=== PATIENT | female | born 1970 | race Caucasian/White ===

== ENCOUNTER 2018-02-17 16:25 | Inpatient (IN) | payer SELFPAY ==
[~2018-02-17] VITALS: Ht 157.5 cm; Wt 70.5 kg
[2018-02-17] MEDS: HYDROMORPHONE 2MG/ML 2 MG/ML ML IV PRN (10:45)
--- OUTSIDE RECORDS SUMMARY | 2018-02-17 16:28 | XMS REPORT | Clinical Summary ---
Author Author GLENN VirtualQubeValor HealthCirrus Data SolutionsPinnacle Pointe HospitalThe Kive CompanyUniversal Health Services Address Unknown Phone Unavailable Care Team Providers Care Production Potter Name Role Phone Elie Pang PCP Unavailable Allergies No Known Allergies Medications End Date Status Medication Sig Dispensed Refills Start Date Active lansoprazole (PREVACID) Take 30 mg by 0 30 MG capsule mouth. Active aspirin 81 MG EC tablet Take 81 mg by 0 mouth. Active albuterol HFA (PROAIR 0 HFA) 90 mcg/actuation 8 inhaler Active rifAXIMin 550 mg Tab Take 550 mg 0 by mouth 2 (two) times daily. Active furosemide (LASIX) 20 MG Take 20 mg by 0 tablet mouth daily. Active spironolactone Take 50 mg by 0 (ALDACTONE) 50 MG tablet mouth daily. Active baclofen 5 mg Take 5 mg by 90 tablet 0 TabIndications: Alcohol mouth 3 8 use disorder (three) times daily. 11/20/2018 Active folic acid (FOLVITE) 1 MG Take 1 tablet 30 tablet 5 tablet (1 mg total) 8 by mouth daily. Active DECARA 50,000 unit TAKE 1 12 capsule 0 capsule CAPSULE BY 8 MOUTH EVERY WEEK 10/23/2017 Discontinued baclofen 5 mg Take 5 mg by 90 tablet 0 TabIndications: Alcohol mouth 3 8 use disorder (three) times daily. 12/24/2017 Discontinued cholecalciferol, vitamin Take 1 tablet 12 tablet 0 D3, 50,000 unit Tab (50,000 Units 8 total) by mouth once a week. Active Problems Problem Noted Date Cirrhosis 10/22/2017 Last Assessment & Plan: Diagnosis based on the constellation of clinical findings, laboratory parameters and imaging. Etiology is most likely due to alcohol. Her condition has decompensated with features of portal hypertension. MELD based on outside labs is 14. We will get labs today to calculate update the MELD score and complete a comprehensive evaluation for other causes of cirrhosis. Patients with cirrhosis secondary to alcohol would be considered for liver transplantation once MELD exceeds 25. Cirrhosis guidelines were reviewed. Alcohol use 10/22/2017 Last Assessment & Plan: Prior history of heavy alcohol use. Last alcohol use on 10/19/17 We advised her of the importance of abstinence from alcohol as it is likely the primary cause of her liver disease. We also discussed counseling and support groups. Prescription provided with baclofen to help ease symptoms of withdrawal. Hyperlipidemia 10/22/2017 Last Assessment & Plan: Lab tests shows hyperlipidemia and hypercholesterolemia. It is safe to use statins in presence of fatty liver disease.Statins use can increase AST/ALT, but significant hepatotoxicity is very rare. Expert panel of warehouse packaging supervisor and concrete buildings assembler recommend use of statins in patient with elevated liver enzymes and hyperlipidemia. I will recommend to monitor liver panel 6 months, if any time T Bilirubin > 2.0 suggests significant hepatotoxicity, then statins need to be discontinued. Immunity status testing 10/22/2017 Last Assessment & Plan: All patients with chronic liver disease, regardless of etiology, should be immunized to prevent hepatitis A and hepatitis B if they are not already immune. We will test for immunity to both viruses and vaccine recommendations will follow. Screening for malignant neoplasm 10/22/2017 Last Assessment & Plan: Cirrhosis, regardless of etiology, is a risk factor for hepatocellular carcinoma (HCC), with an annual incidence of 1.5-7%. We recommend surveillance for HCC with abdominal imaging and alphafetoprotein every 6 months. Ultrasound 09/2017 negative for focal lesions. MRI today. Portal hypertension 10/22/2017 Last Assessment & Plan: Manifested in the form of hypervolemia and splenomegaly. She will need an EGD (outpatient) to screen for esophageal varices. Encounters Care Team Description Date Type Specialty Essence Whitney NP 12/24/2017 Refill Hepatology Gilmer Morfin NP elevated WBC 11/21/2017 Telephone HepatEssence Watson NP 11/20/2017 Orders Only Essence Reyez NP 11/20/2017 Orders Only HepatEssence Watson NP Alcoholic cirrhosis of liver without ascites (HCC); Alcohol use 11/14/2017 Orders Only HepatEssence Watson NP Alcoholic cirrhosis of liver without ascites (HCC) (Primary Dx); Alcohol use 11/14/2017 Orders Only Hepatology Susie Nixon MA 11/10/2017 Abstract Hepatology Keshia Kinsey RN Alcohol use disorder (HCC) 10/23/2017 Orders Only Hepatology Cristobal Boyle MD Other cirrhosis of liver (HCC) (Primary Dx); Immunity status testing; Alcohol use disorder (HCC); Screening for malignant neoplasm; Jaundice; Alcoholic cirrhosis of liver without ascites (HCC); Alcohol use; Hyperlipidemia, unspecified hyperlipidemia type; Portal hypertension (HCC) 10/22/2017 Office Visit Hepatology Maria Ines Wright MA rec cd 10/20/2017 Telephone Hepatology after 02/16/2017 Family History Medical History Relation Name Comments Cancer Father Heart disease Mother Relation Name Status Comments Father Mother Social History Date Tobacco Use Types Packs/Day Years Used Current Every Day Smoker 1 Smokeless Tobacco: Never Used Alcohol Use Drinks/Week oz/Week Comments Yes greater than 5 times/week Sex Assigned at Date Recorded Not on file Industry Job Start Date Occupation Not on file Not on file Not on file Travel End Travel History Travel Start No recent travel history available. Last Filed Vital Signs Time Taken Vital Sign Reading 10/22/2017 9:46 AM CDT Blood Pressure 113/76 10/22/2017 9:46 AM CDT Pulse 103 10/22/2017 9:46 AM CDT Temperature 37.4 C (99.3 F) 10/22/2017 9:46 AM CDT Respiratory Rate 18 10/22/2017 9:46 AM CDT Oxygen Saturation 97% - Inhaled Oxygen - Concentration 10/22/2017 9:46 AM CDT Weight 68.5 kg (151 lb 1.6 oz) 10/22/2017 9:46 AM CDT Height 156 cm (5' 1.4") 10/22/2017 9:46 AM CDT Body Mass Index 28.18 Plan of Treatment Health Maintenance Due Date Last Done Comments INFLUENZA VACCINE 11/24/2017 Procedures Comments Procedure Name Priority Date/Time Associated Diagnosis VITAMIN B1 (THIAMINE), Routine 11/17/2017 Alcohol use WHOLE BLOOD, LC/MS/MS 3:28 PM CDT VITAMIN B12 AND FOLATE Routine 11/17/2017 Alcohol use 3:28 PM CDT ETHANOL Routine 11/17/2017 Alcohol use 3:28 PM CDT VITAMIN E Routine 11/17/2017 Alcoholic cirrhosis of 3:28 PM CDT liver without ascites (HCC) VITAMIN D, 25-HYDROXY Routine 11/17/2017 Alcoholic cirrhosis of 3:28 PM CDT liver without ascites (HCC) VITAMIN A Routine 11/17/2017 Alcoholic cirrhosis of 3:28 PM CDT liver without ascites (HCC) ZINC Routine 11/17/2017 Alcoholic cirrhosis of 3:28 PM CDT liver without ascites (HCC) PHOSPHORUS Routine 11/17/2017 Alcoholic cirrhosis of 3:28 PM CDT liver without ascites (HCC) MAGNESIUM Routine 11/17/2017 Alcoholic cirrhosis of 3:28 PM CDT liver without ascites (HCC) HEPATIC FUNCTION PANEL Routine 11/17/2017 Alcoholic cirrhosis of 3:28 PM CDT liver without ascites (HCC) BASIC METABOLIC PANEL (7) Routine 11/17/2017 Alcoholic cirrhosis of 3:28 PM CDT liver without ascites (HCC) PROTHROMBIN TIME/INR Routine 11/17/2017 Alcoholic cirrhosis of 3:28 PM CDT liver without ascites (HCC) CBC W/PLT COUNT & AUTO Routine 11/17/2017 Alcoholic cirrhosis of DIFFERENTIAL 3:28 PM CDT liver without ascites (HCC) CBC W/PLT COUNT & AUTO Routine 10/22/2017 Other cirrhosis of liver DIFFERENTIAL 11:54 AM CDT (HCC) HEPATITIS B SURFACE Routine 10/22/2017 Other cirrhosis of liver ANTIBODY 11:54 AM CDT (HCC) HEPATITIS B CORE Routine 10/22/2017 Other cirrhosis of liver ANTIBODY, TOTAL 11:54 AM CDT (HCC) HEPATITIS A ANTIBODY, IGG Routine 10/22/2017 Other cirrhosis of liver 11:54 AM CDT (HCC) ALPHA FETOPROTEIN (AFP), Routine 10/22/2017 Other cirrhosis of liver TUMOR MARKER 11:54 AM CDT (HCC) PROTHROMBIN TIME/INR Routine 10/22/2017 Other cirrhosis of liver 11:54 AM CDT (HCC) CBC W/PLT COUNT & AUTO Routine 10/22/2017 Other cirrhosis of liver DIFFERENTIAL 11:54 AM CDT (HCC) HEPATIC FUNCTION PANEL Routine 10/22/2017 Other cirrhosis of liver 11:54 AM CDT (HCC) BASIC METABOLIC PANEL (7) Routine 10/22/2017 Other cirrhosis of liver 11:54 AM CDT (HCC) after 02/16/2017 Results * Vitamin B1 (Thiamine), Whole Blood, LC/MS/MS (11/17/2017 3:28 PM CDT) Vitamin B1,LCMSMS 58 (L) 78 - 185 nmol/L [facility] Comment: Vitamin supplementation within 24 hours prior to blood draw may affect the accuracy of results. This test was developed and its analytical performance characteristics have been determined by [facility]. It has not been cleared or approved by FDA. This assay has been validated pursuant to the CLIA regulations and is used for clinical purposes. Resulting Agency Comment Performing Organization Information: Site ID: [id number]: [facility] Address: [id number] [place] [phone] Director: Baldemar Bardales M.D., Ph.D Performing Organization Address City/State/Zipcode Phone Number [facility] [address] [place] [address] [facility] * Vitamin B12 and Folate (11/17/2017 3:28 PM CDT) Vitamin B12 402 200 - 1,100 pg/mL [facility] Folate (Folic Acid), 3.8 (L) ng/mL [facility] Serum Comment: Reference Range Low: <3.4 Borderline:3.4-5.4 Normal:>5.4 Specimen Blood Resulting Agency Comment Performing Organization Information: Site ID: [id number] Name: [facility] Address: [address] [place] [phone] Director: Simona Mccauley Performing Organization Address [facility] Phone Number [facility] [address] [place] [address] [facility] * Zinc (11/17/2017 3:28 PM CDT) Zinc 84 60 - 130 mcg/dL [facility] Comment: This test was developed and its analytical performance characteristics have been determined by [facility]. It has not been cleared or approved by the US Food and Drug Administration. This assay has been validated pursuant to the CLIA regulations and is used for clinical purposes. Specimen Blood Resulting Agency Comment Performing Organization Information: Site ID: [facility] Name: [facility] Address: [address] [place] [address] Director: Baldemar Bardales M.D., Ph.D Performing Organization Address [facility] Phone Number [facility] [address] [place] [address] [facility] * Vitamin A (11/17/2017 3:28 PM CDT) Vitamin A 20 (L) 38 - 98 mcg/dL [facility] Comment: Clin Chem Vol. 34.No.8. [id number]. 1998 Vitamin supplementation within 24 hours prior to blood draw may affect the accuracy of results. This test was developed and its analytical performance characteristics have been determined by [facility]. It has not been cleared or approved by the US Food and Drug Administration. This assay has been validated pursuant to the CLIA regulations and is used for clinical purposes. Specimen Blood Resulting Agency Comment Performing Organization Information: Site ID: [id number] Name: [facility] Address: [address] [place] [address] Director: Baldemar Bardales M.D., Ph.D Performing Organization Address [facility] Phone Number [facility] [address] [place] [address] [facility] * Vitamin D, 25-Hydroxy (11/17/2017 3:28 PM CDT) Vitamin D,25-Oh,Total 12 (L) 30 - 100 ng/mL [facility] Comment: Vitamin D Status 25-OH Vitamin D: Deficiency: <20 ng/mL Insufficiency: 20 - 29 ng/mL Optimal: > or=30 ng/mL For 25-OH Vitamin D testing on patients on D2-supplementation and patients for whom quantitation of D2 and D3 fractions is required, the QuestAssureD(TM) 25-OH VIT D, (D2,D3), LC/MS/MS is recommended: order code 45184 (patients >2yrs). For more information on this test, go to: http://education.[employer]/faq/JAH717 (This link is being provided for informational/educational purposes only.) Specimen Blood Resulting Agency Comment Performing Organization Information: Site ID: [id number] Name: [facility] Address: [address] [place] [phone] Director: Simona Mccauley Performing Organization Address City/[facility]/Zipcode Phone Number [facility] [address] [place] [address] [facility] * Pro-time/INR (11/17/2017 3:28 PM CDT) Only the most recent of 2 results within the time period is included. INR 1.3 (H) [facility] Comment: Reference Range 0.9-1.1 Moderate-intensity Warfarin Therapy 2.0-3.0 Higher-intensity Warfarin Therapy 3.0-4.0 PT 13.2 (H) 9.0 - 11.5 sec [facility] Comment: For more information on this test, go to: http://education.[employer]/faq/LVU671 Specimen Blood Resulting Agency Comment Performing Organization Information: Site ID: [id number] Name: [facility] Address: [address] [place] [phone] Director: Simona Mccauley Performing Organization Address [facility]/Zipcode Phone Number [facility] [address] [place] [address] [facility] * CBC with platelet count + automated diff (11/17/2017 3:28 PM CDT) WBC 14.9 (H) 3.8 - 10.8 Thousand/uL [facility] RBC 3.64 (L) 3.80 - 5.10 Million/uL [facility] Hemoglobin 12.8 11.7 - 15.5 g/dL [facility] Hematocrit 37.3 35.0 - 45.0 % [facility] MCV 102.5 (H) 80.0 - 100.0 fL [facility] MCH 35.2 (H) 27.0 - 33.0 pg [facility] MCHC 34.3 32.0 - 36.0 g/dL [facility] RDW 12.6 11.0 - 15.0 % [facility] Platelets 410 (H) 140 - 400 Thousand/uL [facility] MPV 10.8 7.5 - 12.5 fL [facility] # Neutros 11,175 (H) 1,500 - 7,800 cells/uL [facility] # Lymphs 2,548 850 - 3,900 cells/uL [facility] # Monos 864 200 - 950 cells/uL [facility] # Eos 209 15 - 500 cells/uL [facility] # Baso 104 0 - 200 cells/uL [facility] % Neutros 75 % [facility] % Lymphs 17.1 % [facility] % Monos 5.8 % [facility] % Eos 1.4 % [facility] % Baso 0.7 % [facility] Specimen Blood Resulting Agency Comment Performing Organization Information: Site ID: [id number] Name: [facility] Address: [address] [place] [phone] Director: Simona Mccauley Performing Organization Address City/State/Zipcode Phone Number [facility] [address] [place] [address] [facility] * Vitamin E (11/17/2017 3:28 PM CDT) Alpha-Tocopherol 13.4 5.7 - 19.9 mg/L [facility] Comment: Pediatric Term Infants (Cord Blood) 1.8 - 5.8 mg/L Levels of alpha-tocopherol < 5 mg/L are consistent with Vitamin E deficiency in adults Kdjo-Shfco-Nwrmwnngdo 2.5 <4.4 mg/L [facility] Comment: Vitamin supplementation within 24 hours prior to blood draw may affect the accuracy of results. This test was developed and its analytical performance characteristics have been determined by [facility]. It has not been cleared or approved by the US Food and Drug Administration. This assay has been validated persuant to the CLIA regulations and is used for clinical purposes. Specimen Blood Resulting Agency Comment Performing Organization Information: Site ID: [id number] Name: [facility] Address: [address] [place] [address] Director: Baldemar Bardales M.D., Ph.D Performing Organization Address [facility] Phone Number [facility] [address] [place] [address] [facility] * Phosphorus (11/17/2017 3:28 PM CDT) Phosphorus, Serum 3.4 2.5 - 4.5 mg/dL [facility] Specimen Blood Resulting Agency Comment Performing Organization Information: Site ID: [facility] Name: [facility] Address: [address] [place] [phone] Director: Simona Mccauley Performing Organization Address [facility] Phone Number [facility] [address] [place] [address] [facility] * Magnesium (11/17/2017 3:28 PM CDT) Magnesium, Serum 1.3 (L) 1.5 - 2.5 mg/dL [facility] Specimen Blood Resulting Agency Comment Performing Organization Information: Site ID: [facility] Name: [facility] Address: [address] [place] [phone] Director: Simona Mccauley Performing Organization Address [facility] Phone Number [facility] [address] [place] [address] [facility] * Ethanol (11/17/2017 3:28 PM CDT) Alcohol Metabolites POSITIVE (A) <500 ng/mL [facility] Comment: => Indicates changed result(s) or information. Ethyl Glucuronide (ETG) >91144 (H) <500 ng/mL [facility] Comment: => Indicates changed result(s) or information. Ethyl Sulfate (ETS) >35556 (H) <100 ng/mL [facility] Comment: => Indicates changed result(s) or information. Comment Comment: [employer] This drug testing is for medical treatment only. Analysis was performed as non-forensic testing and these results should be used only by healthcare providers to render diagnosis or treatment, or to monitor progress of medical conditions. For assistance with interpreting these drug results, please contact a [facility] Toxicology Specialist: [phone] ( [phone] M-F, 8am-6pm EST. Specimen Blood Resulting Agency Comment Performing Organization Information: Site ID: [id number] Name: [facility] Address: [address] [place] [address] Director: Dr. Asim Loyd Performing Organization Address [facility] Centercode Phone Number [facility] [address] [place] [address] [facility] * Hepatic function panel (11/17/2017 3:28 PM CDT) Only the most recent of 2 results within the time period is included. Protein, Total, Serum 7.7 6.1 - 8.1 g/dL [facility] Albumin 3.9 3.6 - 5.1 g/dL [facility] GLOBULIN (QUEST) 3.8 (H) 1.9 - 3.7 g/dL (calc) [facility] Albumin Globulin Ratio 1.0 1.0 - 2.5 (calc) [facility] Bilirubin, Total 2.3 (H) 0.2 - 1.2 mg/dL [facility] Bilirubin, Direct 1.2 (H) < OR=0.2 mg/dL [facility] Bilirubin, Indirect 1.1 0.2 - 1.2 mg/dL (calc) [facility] Alkaline Phosphatase, S 358 (H) 33 - 115 U/L [facility] AST (SGOT) 148 (H) 10 - 35 U/L [facility] ALT (SGPT) 27 6 - 29 U/L [facility] Specimen Blood Resulting Agency Comment Performing Organization Information: Site ID: [facility] Name: [facility] Address: [address] [place] [phone] Director: Simona Mccauley Performing Organization Address City/[facility]/Zipcode Phone Number [facility] [address] [place] [address] [facility] * Basic Metabolic Panel (11/17/2017 3:28 PM CDT) Only the most recent of 2 results within the time period is included. Glucose 99 65 - 99 mg/dL [facility] Comment: Fasting reference interval BUN 5 (L) 7 - 25 mg/dL [facility] Creatinine 0.71 0.50 - 1.10 mg/dL [facility] eGFR If NonAfricn Am 101 > OR=60 mL/min/1.73m2 [facility] eGFR If Africn Am 117 > OR=60 mL/min/1.73m2 [facility] BUN/Creatinine Ratio 7 6 - 22 (calc) [facility] Sodium 136 135 - 146 mmol/L [facility] Potassium, Serum 3.6 3.5 - 5.3 mmol/L [facility] Chloride 93 (L) 98 - 110 mmol/L [facility] Carbon Dioxide, Total 31 20 - 32 mmol/L [facility] Calcium, Serum 9.1 8.6 - 10.2 mg/dL [facility] Specimen Blood Resulting Agency Comment Performing Organization Information: Site ID: [facility] Name: [facility] Address: [address] [place] [phone] Director: Simona Mccauley Performing Organization Address City/[facility] Centercode Phone Number [facility] [address] [place] [address] [facility] * Hepatitis A Antibody, IgG ([facility] Only) (10/22/2017 11:54 AM CDT) Hep A IgG Nonreactive Nonreactive [facility] Specimen Blood Performing Organization Address City/State/Zipcode Phone Number [facility] [address] [place] [address] [facility] * CBC with platelet count + automated diff (10/22/2017 11:54 AM CDT) WBC 15.7 (H) 3.5 - 10.5 K/L [facility] RBC 3.55 (L) 3.93 - 5.22 M/L [facility] Hemoglobin 12.9 11.2 - 15.7 GM/DL [facility] Hematocrit 38.3 34.1 - 44.9 % [facility] MCV 107.9 (H) 79.4 - 94.8 fL [facility] MCH 36.3 (H) 25.6 - 32.2 pg [facility] MCHC 33.7 32.2 - 35.5 GM/DL [facility] RDW 14.4 11.7 - 14.4 % [facility] Platelets 396 150 - 450 K/CU MM [facility] MPV 11.1 9.4 - 12.3 fL [facility] nRBC 0 0 - 0 /100 WBC [facility] % Neutros 81 % [facility] % Lymphs 12 % [facility] % Monos 5 % [facility] % Eos 1 % [facility] % Baso 1 % [facility] # Neutros 12.67 (H) 1.56 - 6.13 K/L [facility] # Lymphs 1.90 1.18 - 3.74 K/L [facility] # Monos 0.76 (H) 0.24 - 0.36 K/L [facility] # Eos 0.14 0.04 - 0.36 K/L [facility] # Baso 0.13 (H) 0.01 - 0.08 K/L [facility] Immature 1 0 - 1 % [facility] Granulocytes-[facility] Specimen Blood Performing Organization Address City/State/[place] [address] [facility] * Alpha fetoprotein (AFP), tumor marker (10/22/2017 11:54 AM CDT) Alpha-Fetoprotein 4.6 <10.0 ng/mL [facility] Specimen Blood Performing Organization Address City/[facility]/Zipcode Phone Number [address] [address] [facility] * Hepatitis B core antibody, total (10/22/2017 11:54 AM CDT) Hep B Core Total Ab NON-REACTIVE Nonreactive [facility] Specimen Blood Performing Organization Address City/[facility]/Zipcode Phone Number [facility] [address] [place] [address] [facility] * Hepatitis B surface antibody (10/22/2017 11:54 AM CDT) Hep B S Ab <8.0 <8.0 mIU/mL [facility] Specimen Blood Performing Organization Address City/[facility] Cent[facility] Phone Number [facility] [address] [place], [place] [phone] [facility] after 02/16/2017 Insurance Payer Benefit Subscriber ID Type Phone Address Plan / Group [employer] BCBS PPO xxxxxxxxxxxx PPO [phone] [address] [place] [address] CHOICE
--- OUTSIDE RECORDS SUMMARY | 2018-02-17 16:28 | XMS REPORT | Clinical Summary ---
Author Author [facility] Address Unknown Phone Unavailable Care Team Providers Care Advanced Practice Registered Nurse Name Role Phone Elie Pang DO PCP Allergies No Known Allergies Medications End Date Status Medication Sig Dispensed Refills Start Date Active PROAIR HFA 90 5 mcg/actuation inhaler 8 Active lansoprazole (PREVACID) Take 30 mg by 0 30 MG capsule mouth daily. Active aspirin (ECOTRIN) 81 MG Take 81 mg by 0 enteric coated tablet mouth daily. Active MULTIVITAMIN ORAL Take by 0 mouth. Active CHLORPHENIRAMINE MALEATE Take by 0 (CHLOR-TRIMETON ORAL) mouth. As needed about twice a week Active oxymetazoline (AFRIN) 2 sprays into 0 0.05 % nasal spray each nostril 2 (two) times a day. As needed Active Problems Not on file Encounters Care Team Description Date Type Specialty Pepe Craig MD Diarrhea, unspecified type (Primary Dx); Abdominal pain, left upper quadrant; Abdominal pain, right upper quadrant; Stomach ache; Abdominal pain, epigastric 10/07/2017 Transcribe Access Orders Pepe Craig MD Acid phosphatase elevated 10/03/2017 Hospital Radiology Encounter Pepe Craig MD Acid phosphatase elevated (Primary Dx) 10/03/2017 Transcribe Access Orders Julita Amado MA 05/20/2017 Telephone Gastroenterology Saurabh Vilal MD Abnormal liver function test (Primary Dx); Hepatomegaly; Abnormal abdominal ultrasound; Gastroesophageal reflux disease without esophagitis; Fatty liver; Change in bowel habits; History of colon polyps; Gastric ulcer without hemorrhage or perforation, unspecified chronicity 05/13/2017 Office Visit Gastroenterology Diann Masters MD Chest pain, unspecified type (Primary Dx) 04/01/2017 Emergency Emergency Medicine after 02/16/2017 Family History Medical History Relation Name Comments Adrenal disorder Father Cancer Father GERD Mother Thyroid disease Mother Relation Name Status Comments Father (Age 52) Mother Social History Date Tobacco Use Types Packs/Day Years Used Current Every Day Smoker Cigarettes 0.5 Smokeless Tobacco: Never Used Alcohol Use Drinks/Week oz/Week Comments Yes 1-2 Shots of 0.6 - 1.2 4-5 liquor Sex Assigned at Date Recorded Not on file Industry Job Start Date Occupation Not on file Not on file Not on file Travel End Travel History Travel Start No recent travel history available. Last Filed Vital Signs Time Taken Vital Sign Reading 05/13/2017 2:17 PM CDT Blood Pressure 124/84 05/13/2017 2:17 PM CDT Pulse 74 05/13/2017 2:17 PM CDT Temperature 37.3 C (99.1 F) 05/13/2017 2:17 PM CDT Respiratory Rate 12 04/01/2017 5:45 PM EDITOR MANAGING DIRECTOR Oxygen Saturation 98% - Inhaled Oxygen - Concentration 05/13/2017 2:17 PM CDT Weight 70.5 kg (155 lb 6.4 oz) 05/13/2017 2:17 PM CDT Height 157.5 cm (5' 2") 05/13/2017 2:17 PM CDT Body Mass Index 28.42 Plan of Treatment Health Maintenance Due Date Last Done Comments CERVICAL CANCER SCREENING 1990 INFLUENZA VACCINE 09/24/2017 Procedures Comments Procedure Name Priority Date/Time Associated Diagnosis US ABDOMEN COMPLETE STAT 10/03/2017 Acid phosphatase elevated 5:57 PM CDT ECG ED PRELIMINARY Routine 04/02/2017 INTERPRETATION 12:14 AM EDITOR MANAGING DIRECTOR XR CHEST 1 VW STAT 04/01/2017 6:46 PM EDITOR MANAGING DIRECTOR ZZESTIMATED GFR STAT 04/01/2017 5:55 PM EDITOR MANAGING DIRECTOR B NATRIURETIC PEPTIDE STAT 04/01/2017 5:55 PM EDITOR MANAGING DIRECTOR TROPONIN STAT 04/01/2017 5:55 PM EDITOR MANAGING DIRECTOR COMPREHENSIVE METABOLIC STAT 04/01/2017 PANEL 5:55 PM EDITOR MANAGING DIRECTOR HC COMPLETE BLD COUNT STAT 04/01/2017 W/AUTO DIFF 5:55 PM EDITOR MANAGING DIRECTOR ECG 12-LEAD STAT 04/01/2017 5:28 PM EDITOR MANAGING DIRECTOR after 02/16/2017 Results * US Abdomen Complete (10/03/2017 5:57 PM CDT) Narrative Performed At EXAM: ultrasound abdomen [facility] CLINICAL DATA:R74.8 Abnormal levels of other serum enzymes, ACID PHOSPHATEASE ELEVATED COMPARISON: NONE. FINDINGS: LIVER:The liver is enlarged measuring 25 cm in length. Liver echotexture is echogenic due to hepatocellular disease. MPV:The portal vein diameter is 10 mm.. GALLBLADDER:Is surgically absent. CBD:Measures 4.2 mm in diameter , within normal limits. PANCREAS:The visualized portions of the pancreas are within normal limits. The spleen measures 12.0 x 4.2 x 4.0 cm The right kidney measures 10.7 x 6.7 x 4.3 cm The left kidney measures 11.3 x 6.5 x 6.5 cm There is no hydronephrosis and there are no renal calculi. AORTA:The visualized upper abdominal aorta demonstrates no evidence of ectasia or aneurysm. IVC:The visualized portions of the inferior vena cava are unremarkable. ASCITES: No abnormal abdominal fluid collections are visualized. There is no evidence of ascites. IMPRESSION: Portal vein is incompletely visualized. Hepatomegaly. [id number] Procedure Note Hm Interface, Radiology Results Incoming - 10/03/2017 6:20 PM CDT EXAM: ultrasound abdomen CLINICAL DATA: R74.8 Abnormal levels of other serum enzymes, ACID PHOSPHATEASE ELEVATED COMPARISON: NONE. FINDINGS: LIVER: The liver is enlarged measuring 25 cm in length. Liver echotexture is echogenic due to hepatocellular disease. MPV: The portal vein diameter is 10 mm.. GALLBLADDER: Is surgically absent. CBD: Measures 4.2 mm in diameter , within normal limits. PANCREAS: The visualized portions of the pancreas are within normal limits. The spleen measures 12.0 x 4.2 x 4.0 cm The right kidney measures 10.7 x 6.7 x 4.3 cm The left kidney measures 11.3 x 6.5 x 6.5 cm There is no hydronephrosis and there are no renal calculi. AORTA: The visualized upper abdominal aorta demonstrates no evidence of ectasia or aneurysm. IVC: The visualized portions of the inferior vena cava are unremarkable. ASCITES: No abnormal abdominal fluid collections are visualized. There is no evidence of ascites. IMPRESSION: Portal vein is incompletely visualized. Hepatomegaly. [facility] [id number] Performing Organization Address [facility] Phone Number [facility] [address] [place] [address] * ECG ED Preliminary Interpretation - NOT AN ORDER (04/02/2017 12:14 AM EDITOR MANAGING DIRECTOR) Narrative Performed At Diann Masters MD 04/02/2017 12:14 AM ECG ED Preliminary Interpretation - Not an Order Performed by: DIANN MASTERS Authorized by: DIANN MASTERS Rate: ECG rate:101 ECG rate assessment: tachycardic Rhythm: Rhythm: sinus rhythm Ectopy: Ectopy: none ST segments: ST segments:Normal T waves: T waves: normal * XR Chest 1 Vw (04/01/2017 6:46 PM EDITOR MANAGING DIRECTOR) Narrative Performed At EXAMINATION:XR CHEST 1 VW RADIANT CLINICAL HISTORY:SHORTNESS OF BREATH COMPARISON:None IMPRESSION: Unremarkable single view chest The lungs are clear. The heart is not enlarged. The bony structures are within normal limits. [id number] Procedure Note Hm Interface, Radiology Results Incoming - 04/01/2017 6:50 PM EDITOR MANAGING DIRECTOR EXAMINATION: XR CHEST 1 VW CLINICAL HISTORY: SHORTNESS OF BREATH COMPARISON: None IMPRESSION: Unremarkable single view chest The lungs are clear. The heart is not enlarged. The bony structures are within normal limits. [id number] Performing Organization Address [facility] Phone Number [facility] [address] [place] [address] * Estimated GFR (04/01/2017 5:55 PM EDITOR MANAGING DIRECTOR) GFR Non Af Amer >90 mL/min/1.73 m2 [facility] AND GENOMIC MEDICINE GFR Af Amer >90 mL/min/1.73 m2 [facility] OF Comment: PATHOLOGY AND Chronic kidney disease: <60 GENOMIC MEDICINE mL/min/1.73m2 Kidney failure: <15 mL/min/1.73m2 The estimated GFR is calculated from the IDMS-traceable Modification of Diet in Renal Disease Equation. The accuracy of the calculation is poor when the creatinine is normal. Calculated values >90 mL/min/1.73m2 are not reported. This equation has not been validated in children (<18 years), women, the elderly (>70 years), or ethnic groups other than Caucasians and Americans. Specimen Plasma specimen Performing Organization Address City/State/Zipcode Phone Number [address] [place] [address] PATHOLOGY AND [employer] MEDICINE * Troponin (04/01/2017 5:55 PM EDITOR MANAGING DIRECTOR) Troponin <0.01 0.00 - 0.60 ng/mL [facility] OF Comment: PATHOLOGY AND 0.11 - 1.49 GENOMIC MEDICINE ng/mlMay indicate increased risk of acute coronary syndrome. >=1.5 ng/ml Consistent with acute myocardial infarction. The diagnostic value of a single normal or non-diagnostic result is questionable.Serial samples at 2-6 hour intervals are required to rule out acute myocardial injury. Specimen Plasma specimen Performing Organization Address City/State/[place] [address] PATHOLOGY AND [employer] MEDICINE * CBC with platelet and differential (04/01/2017 5:55 PM EDITOR MANAGING DIRECTOR) WBC 8.0 4.2 - 11.0 k/uL [facility] AND GENOMIC MEDICINE RBC 3.80 (L) 4.04 - 5.86 m/uL [facility]OLOGY AND GENOMIC MEDICINE HGB 13.9 11.5 - 15.3 g/dL [facility] PATHOLOGY AND GENOMIC MEDICINE HCT 39.8 34.0 - 45.0 % [facility]OLOGY AND GENOMIC MEDICINE MCV 104.7 (H) 80.0 - 98.0 fL [facility]OLOGY AND GENOMIC MEDICINE MCH 36.6 (H) 27.0 - 34.0 pg [facility]OLOGY AND GENOMIC MEDICINE MCHC 34.9 31.5 - 36.5 g/dL [facility]OLOGY AND GENOMIC MEDICINE RDW - SD 49.3 37.0 - 51.0 fL [facility]OLOGY AND GENOMIC MEDICINE MPV 9.7 7.4 - 10.4 fL [facility]Y AND GENOMIC MEDICINE Platelet count 337 150 - 400 k/uL [facility]Y AND GENOMIC MEDICINE Nucleated RBC 0.00 /100 WBC [facility]OLOGY AND GENOMIC MEDICINE Neutrophils 57.0 36.0 - 66.0 % [facility]Y AND GENOMIC MEDICINE Lymphocytes 30.6 24.0 - 44.0 % [facility]OLOGY AND GENOMIC MEDICINE Monocytes 8.0 (H) 0.0 - 6.0 % [facility]Y AND GENOMIC MEDICINE Eosinophils 3.0 0.0 - 6.0 % [facility]OLOGY AND GENOMIC MEDICINE Basophils 1.0 0.0 - 1.2 % [facility]OLOGY AND GENOMIC MEDICINE Immature granulocytes 0.4 0.0 - 1.0 % [facility]Y AND GENOMIC MEDICINE Specimen Blood Performing Organization Address City/[facility]/Zipcode Phone Number [address] * B natriuretic peptide (04/01/2017 5:55 PM EDITOR MANAGING DIRECTOR) BNP 10 0 - 100 pg/mL [facility] PATHOLOGY AND GENOMIC MEDICINE Specimen Blood Performing Organization Address City/[facility] [place] [place] [address] PATHOLOGY [facility] * Comprehensive metabolic panel (04/01/2017 5:55 PM EDITOR MANAGING DIRECTOR) Sodium 141 135 - 150 mEq/L [facility]Y AND GENOMIC MEDICINE Potassium 3.1 (L) 3.5 - 5.0 mEq/L [facility]OLOGY AND GENOMIC MEDICINE Chloride 104 100 - 109 mEq/L [facility] AND [facility]OMIC MEDIC[facility] CO2 30 24 - 32 mmol/L [facility]OLOGY AND GENOMIC MEDICINE Anion gap 7 7 - 15 mEq/L [facility] OF Comment: PATHOLOGY AND Starting from May [facility] , anion gap calculation no longer incorporates potassium. Please note the change. BUN 6 (L) 7 - 18 mg/dL [facility]OLOGY AND GENOMIC MEDICINE Creatinine 0.6 (L) 0.8 - 1.5 mg/dL [facility]OLOGY AND GENOMIC MEDICINE Glucose 91 65 - 100 mg/dL [facility] OF [facility]OLOGY AND GENOMIC MEDICINE Calcium 8.6 8.6 - 10.7 mg/dL [facility] OF [facility]OLOGY AND GENOMIC MEDICINE Protein 7.7 6.3 - 8.2 g/dL [facility]OLOGY AND GENOMIC MEDICINE Albumin 3.7 3.2 - 5.0 g/dL [facility]OLOGY AND GENOMIC MEDICINE A/G ratio 0.9 0.7 - 3.8 [facility] OF [facility]OLOGY AND GENOMIC MEDICINE Alkaline phosphatase 137 (H) 30 - 120 U/L [facility]OLOGY AND GENOMIC MEDICINE AST 250 (H) 15 - 37 U/L [facility] PATHOLOGY AND GENOMIC MEDICINE ALT 104 (H) 30 - 65 U/L [facility]OLOGY AND GENOMIC MEDICINE Total bilirubin 0.6 0.2 - 1.2 mg/dL [facility] OF [facility]OLOGY AND GENOMIC MEDICINE Specimen Plasma specimen Performing Organization Address City/[facility] Phone Number [facility] [address] [place] [address] PATHOLOGY AND GENOMIC MEDICINE * ECG 12 lead (04/01/2017 5:28 PM EDITOR MANAGING DIRECTOR) Ventricular rate 101 [facility] Atrial rate 101 [facility] WA interval 152 [facility] QRSD interval 88 [facility] QT interval 360 [facility] QTC interval 466 [facility] P axis 1 39 [facility] QRS axis 1 -27 [facility] T wave axis 19 [facility] EKG impression Sinus tachycardia-Possible [facility] MUSE Left atrial enlargement-Borderline ECG-No previous ECGs available- Performing Organization Address City/[facility] Phone Number [facility] [address] [place] [address] after 02/16/2017 Insurance Payer Benefit Subscriber ID Type Phone Address Plan / Group BCBS BCBS xxxxxxxxxxxx PPO CHOICE PPO/[employer] PPO Advance Directives Patient has advance care planning documents on file. For more information, ivon e contact: Pawel Irby [address] [place] [address]
--- OUTSIDE RECORDS SUMMARY | 2018-02-17 16:28 | XMS REPORT ---
Author Author [facility] Address Unknown Phone Unavailable Care Team Providers Care Apartment Maintenance Name Role Phone Karo SANDOVAL Unavailable Unavailable Problems This patient has no known problems. Allergies, Adverse Reactions, Alerts This patient has no known allergies or adverse reactions. Medications This patient has no known medications. Results Test Description Test Time Test Comments Text Results Atomic Results Result Comments HEPATITIS B SURFACE ANTIBODY 2017-10-22 15:04:00 HEPATITIS B SURFACE ANTIBODY (BEAKER) (test oiwo=363) < mIU/mL <8.0 ALPHA FETOPROTEIN (AFP), TUMOR [id number] 14:44:00* Test Item Value Reference Range Comments ALPHA-FETOPROTEIN (BEAKER) (test mibb=2281) 4.6 ng/mL <10.0 HEPATITIS B CORE ANTIBODY, [id number] 14:44:00* Test Item Value Reference Range Comments HEPATITIS B CORE TOTAL ANTIBODY (BEAKER) (test uaat=528) Nonreactive Nonreactive HEPATITIS A ANTIBODY, [id number] 14:44:00* Test Item Value Reference Range Comments HEPATITIS A IGG ANTIBODY (BEAKER) (test qsny=7901) Nonreactive Nonreactive HEPATIC FUNCTION [id number] 14:21:00* Test Item Value Reference Range Comments TOTAL PROTEIN (BEAKER) (test sseq=819) 7.6 gm/dL 6.0-8.3 ALBUMIN (BEAKER) (test vlkx=9186) 3.4 g/dL 3.5-5.0 BILIRUBIN TOTAL (BEAKER) (test bpzh=634) 2.6 mg/dL 0.2-1.2 BILIRUBIN DIRECT (BEAKER) (test lvon=122) 1.8 mg/dL 0.1-0.5 ALKALINE PHOSPHATASE (BEAKER) (test xtkk=133) 345 U/L 40-150 AST (SGOT) (BEAKER) (test wcex=744) 302 U/L 5-34 ALT (SGPT) (BEAKER) (test jeab=259) 43 U/L 6-55 BASIC METABOLIC [id number] 14:21:00* Test Item Value Reference Range Comments SODIUM (BEAKER) (test weui=017) 140 meq/L 136-145 POTASSIUM (BEAKER) (test nxpm=001) 3.6 meq/L 3.5-5.1 CHLORIDE (BEAKER) (test ffak=580) 96 meq/L 98-107 CO2 (BEAKER) (test muon=816) 31 meq/L 22-29 BLOOD UREA NITROGEN (BEAKER) (test vwhg=556) 3 mg/dL 7-21 CREATININE (BEAKER) (test jhbj=826) 0.64 mg/dL 0.57-1.25 GLUCOSE RANDOM (BEAKER) (test aiyw=209) 70 mg/dL 70-105 CALCIUM (BEAKER) (test qgej=266) 9.4 mg/dL 8.4-10.2 EGFR (BEAKER) (test iftb=9244) 99 mL/min/1.73 sq m ESTIMATED GFR IS NOT ACCURATE CREATININE CLEARANCE IN PREDICTING GLOMERULAR FILTRATION RATE. ESTIMATED GFR IS NOT APPLICABLE FOR DIALYSIS PATIENTS. PROTHROMBIN TIME/[id number] 14:02:00* Test Item Value Reference Range Comments PROTIME (BEAKER) (test thxv=511) 15.6 seconds 11.7-14.7 INR (BEAKER) (test mmlt=112) 1.2 <=5.9 RECOMMENDED COUMADIN/WARFARIN INR THERAPY RANGESSTANDARD DOSE: 2.0 - 3.0 Inclu donna: PROPHYLAXIS for venous thrombosis, systemic embolization; TREATMENT for halie ous thrombosis and/or pulmonary embolus.HIGH RISK: Target INR is 2.5-3.5 for pat ients with mechanical heart valves.CBC W/PLT COUNT & AUTO [id number] 13:54:00* Test Item Value Reference Range Comments WHITE BLOOD CELL COUNT (BEAKER) (test ysjk=815) 15.7 K/ L 3.5-10.5 RED BLOOD CELL COUNT (BEAKER) (test kkaj=568) 3.55 M/ L 3.93-5.22 HEMOGLOBIN (BEAKER) (test bzbx=183) 12.9 GM/DL 11.2-15.7 HEMATOCRIT (BEAKER) (test fkmn=832) 38.3 % 34.1-44.9 MEAN CORPUSCULAR VOLUME (BEAKER) (test ojzb=979) 107.9 fL 79.4-94.8 MEAN CORPUSCULAR HEMOGLOBIN (BEAKER) (test kxjj=796) 36.3 pg 25.6-32.2 MEAN CORPUSCULAR HEMOGLOBIN CONC (BEAKER) (test dogm=806) 33.7 GM/DL 32.2-35.5 RED CELL DISTRIBUTION WIDTH (BEAKER) (test dtdr=398) 14.4 % 11.7-14.4 PLATELET COUNT (BEAKER) (test ykdh=241) 396 K/CU MM 150-450 MEAN PLATELET VOLUME (BEAKER) (test gkbn=023) 11.1 fL 9.4-12.3 NUCLEATED RED BLOOD CELLS (BEAKER) (test uuzd=580) 0 /100 WBC 0-0 NEUTROPHILS RELATIVE PERCENT (BEAKER) (test tsto=059) 81 % LYMPHOCYTES RELATIVE PERCENT (BEAKER) (test pzar=805) 12 % MONOCYTES RELATIVE PERCENT (BEAKER) (test yoyi=451) 5 % EOSINOPHILS RELATIVE PERCENT (BEAKER) (test htjr=276) 1 % BASOPHILS RELATIVE PERCENT (BEAKER) (test jsxi=139) 1 % NEUTROPHILS ABSOLUTE COUNT (BEAKER) (test xnfq=725) 12.67 K/ L 1.56-6.13 LYMPHOCYTES ABSOLUTE COUNT (BEAKER) (test musr=253) 1.90 K/ L 1.18-3.74 MONOCYTES ABSOLUTE COUNT (BEAKER) (test uhwz=577) 0.76 K/ L 0.24-0.36 EOSINOPHILS ABSOLUTE COUNT (BEAKER) (test sxoz=008) 0.14 K/ L 0.04-0.36 BASOPHILS ABSOLUTE COUNT (BEAKER) (test rred=353) 0.13 K/ L 0.01-0.08 IMMATURE GRANULOCYTES-RELATIVE PERCENT (BEAKER) (test vtpf=4507) 1 % 0-1
[2018-02-17] MEDS ORDERED: ONDANSETRON HCL INJ 2 MG/ML VIAL IV STA (17:19)
[2018-02-17] MEDS ORDERED: HYDROMORPHONE 1MG/1ML INJ IV STA (17:19)
[2018-02-17] MEDS ORDERED: PANTOPRAZOLE 40 MG 10ML VIAL IV STA (17:19)
[2018-02-17 17:36] LABS: BASOPHILS # (AUTO) 0.1 (0.0-0.1); BASOPHILS % 0.6 % (0.0-1.0); EOSINOPHILS # (AUTO) 0.2 (0.0-0.4); EOSINOPHILS % 1.2 % (0.0-6.0); HEMATOCRIT 25.6 % (34.2-44.1); HEMOGLOBIN 8.8 g/dL (12.0-16.0); LYMPHOCYTES # (AUTO) 2.1 (1.0-3.2); MEAN CORPUSCULAR HEMOGLOBIN 37.1 pg (28-32); MEAN CORPUSCULAR HGB CONC 34.4 g/dL (31-35); MONOCYTES % 7.2 % (4.4-11.3); NEUTROPHILS # (AUTO) 10.3 (2.1-6.9); NEUTROPHILS % 75.3 % (38.7-80.0); PLATELET COUNT 236 x10e3/uL (140-360); RED BLOOD COUNT 2.37 x10e6/uL (3.6-5.1); RED CELL DISTRIBUTION WIDTH 16.5 % (11.7-14.4)
[2018-02-17 17:49] LABS: ALANINE AMINOTRANSFERASE 20 IU/L (0-55); ALBUMIN 2.6 g/dL (3.5-5.0); ALBUMIN/GLOBULIN RATIO 0.6 (0.8-2.0); ALKALINE PHOSPHATASE 305 IU/L (40-150); AMYLASE 48 U/L (25-125); ANION GAP 18.5 mmol/L (8-16); BLOOD UREA NITROGEN 6 mg/dL (7-26); BUN/CREATININE RATIO 9 (6-25); CALCIUM 7.8 mg/dL (8.4-10.2); CARBON DIOXIDE 29 mmol/L (22-29); CHLORIDE 91 mmol/L (98-107); CREATINE KINASE 68 IU/L (29-168); CREATININE, SERUM 0.68 mg/dL (0.57-1.11); EST GLOMERULAR FILTRATION RATE > 60 ML/MIN (60-); GLUCOSE 93 mg/dL (74-118); LIPASE 120 U/L (8-78); SODIUM 136 mmol/L (136-145)
--- NOTE | 2018-02-17 17:55 | NUR ---
DR MCCORMICK AT BEDSIDE FOR RECTAL EXAM AND OCCULT STOOL, NOT TOLERATED WELL. PATIENT ANXIOUS AND CRYING, POSITIVE REASSURANCE GIVEN, EASILY CONSOLED. NO SIGNS OF ACUTE DISTRESS NOTED AT THIS TIME.
[2018-02-17 17:57] LABS: POTASSIUM 2.5 mmol/L (3.5-5.1)
[2018-02-17 17:58] LABS: MAGNESIUM 0.9 MG/DL (1.3-2.1)
[2018-02-17] MEDS ORDERED: VANCOMYCIN 1GM/NS 250 ML 250 ML IV ONE (18:00)
[2018-02-17] MEDS ORDERED: MAGNESIUM SULFATE 2GM/50ML 50 ML IV ONE (18:00)
[2018-02-17] MEDS ORDERED: HYDROMORPHONE 2MG/ML 2 MG/ML ML IV ONE (18:00)
[2018-02-17] MEDS ORDERED: SODIUM CHLORIDE 0.9% 250ML 250 ML IV ONE (18:15)
[2018-02-17] MEDS ORDERED: FUROSEMIDE INJ 10 MG/ML 2 ML VIAL IV PRN (18:15)
[2018-02-17 18:20] LABS: CLARITY,URINE HAZY (CLEAR); COLOR,URINE AMBER (YELLOW); KETONES,URINE TRACE (NEGATIVE); LEUKOCYTE ESTERASE ,URINE TRACE (NEGATIVE); NITRITE,URINE POSITIVE (NEGATIVE); PROTEIN,URINE DIPSTICK 1+ (NEGATIVE)
[2018-02-17 18:21] LABS: BILIRUBIN,URINE 2+ (NEGATIVE); URINE UROBILINOGEN 8 mg/dL (0.2 - 1)
[2018-02-17 18:22] LABS: PREGNANCY TEST, URINE NEGATIVE (NEGATIVE)
[2018-02-17] MEDS ORDERED: SPIRONOLACTONE25 MG PO (18:23)
[2018-02-17] MEDS ORDERED: ASPIRIN81 MG PO (18:23)
[2018-02-17] MEDS ORDERED: FOLIC ACID1 MG PO (18:23)
[2018-02-17] MEDS ORDERED: LASIX20 MG PO (18:23)
[2018-02-17] MEDS ORDERED: OMEPRAZOLE40 MG PO (18:23)
[2018-02-17] MEDS ORDERED: VITAMIN D1000 UNI1 PO (18:23)
--- NOTE | 2018-02-17 18:24 | NUR ---
PATIENT REPORTS SHE STOPPED TAKING DIURETICS X2 DAYS AGO.
[2018-02-17 18:33] LABS: INR 1.33; PROTHROMBIN TIME 17.6 seconds (11.9-14.5)
[2018-02-17 18:34] LABS: PARTIAL THROMBOPLASTIN TIME 47.5 seconds (23.8-35.5)
[2018-02-17 18:47] LABS: BACTERIA,URINE MANY /HPF
[2018-02-17 18:48] LABS: EPITHELIAL CELLS,URINE MODERATE /LPF; RBC,URINE 0-5 /HPF (0-5); WBC,URINE (MAN) 0-5 /HPF (0-5)
[2018-02-17] MEDS: OCTREOTIDE ACETATE 500 MCG in SODIUM CHLORIDE 0.9% 250ML 250 ML IV SCH (18:49)
--- NOTE | 2018-02-17 19:05 | NUR ---
VERBAL REPORT GIVEN TO AUBRIE CASTRO.
[2018-02-17] MEDS ORDERED: SODIUM CHLORIDE 0.9% 50ML 50 ML ONE ×2 (19:08→22:36)
--- NOTE | 2018-02-17 19:12 | NUR ---
CONSENT FORM SIGNED FOR BLOOD TRANSFUSION. PATIENT VERBALIZED UNDERSTANDING OF RISKS AND BENEFITS OF RECEIVING BLOOD TRANSFUSION. PATIENT GIVEN OPPORTUNITY TO ASK QUESTIONS, DENIES ANY QUESTION OR CONCERNS AT THSI TIME. NO SIGNS OF ACUTE DISTRESS NOTED AT THIS TIME.
[2018-02-17] MEDS: CEFEPIME HCL 2 GM VIAL IV SCH (19:17)
[2018-02-17] MEDS: POTASSIUM CHLORIDE 10MEQ/100ML 100 ML IV SCH ×2 (19:37→22:38)
[2018-02-17] MEDS ORDERED: MULTIVITAMINS IV ONE ×5 (19:45)
[2018-02-17] MEDS ORDERED: FOLIC ACID IV ONE ×5 (19:45)
[2018-02-17] MEDS ORDERED: [UNRECOGNIZED DRUG - OTHER] IV ONE ×5 (19:45)
[2018-02-17] MEDS ORDERED: THIAMINE HCL IV ONE ×5 (19:45)
--- OUTSIDE RECORDS SUMMARY | 2018-02-17 19:52 | XMS REPORT | Clinical Summary ---
Author Author [facility] Organization [facility] Address Unknown Phone Unavailable Care Team Providers Care Spinning Frame Cleaner Name Role Phone Elie Pang DO PCP [...] Julita Amado MA 05/20/2017 Telephone Gastroenterology Saurabh Villa MD Abnormal liver function test (Primary Dx); Hepatomegaly; Abnormal abdominal ultrasound; Gastroesophageal reflux disease without esophagitis; Fatty liver; Change in bowel habits; History of colon polyps; Gastric ulcer without hemorrhage or perforation, unspecified chronicity 05/13/2017 Office Visit Gastroenterology iDann Masters MD Chest pain, unspecified type (Primary [...] CDT Respiratory Rate 12 04/01/2017 5:45 PM SKIP LOCATOR Oxygen Saturation 98% - Inhaled Oxygen - [...] ED PRELIMINARY Routine 04/02/2017 INTERPRETATION 12:14 AM SKIP LOCATOR XR CHEST 1 VW STAT 04/01/2017 6:46 PM SKIP LOCATOR ZZESTIMATED GFR STAT 04/01/2017 5:55 PM SKIP LOCATOR B NATRIURETIC PEPTIDE STAT 04/01/2017 5:55 PM SKIP LOCATOR TROPONIN STAT 04/01/2017 5:55 PM SKIP LOCATOR COMPREHENSIVE METABOLIC STAT 04/01/2017 PANEL 5:55 PM SKIP LOCATOR HC COMPLETE BLD COUNT STAT 04/01/2017 W/AUTO DIFF 5:55 PM SKIP LOCATOR ECG 12-LEAD STAT 04/01/2017 5:28 PM SKIP LOCATOR after 02/16/2017 Results * US Abdomen Complete (10/03/2017 5:57 PM CDT) Narrative Performed At EXAM: ultrasound abdomen [facility] [facility] CLINICAL DATA:R74.8 Abnormal levels of other serum [...] IMPRESSION: Portal vein is incompletely visualized. Hepatomegaly. [id number] Procedure Note Hm Interface, Radiology Results Incoming [...] IMPRESSION: Portal vein is incompletely visualized. Hepatomegaly. [id number] Performing Organization Address [facility] Phone Number [employer] [facility] [address] [place] [address] * ECG ED Preliminary Interpretation - NOT AN ORDER (04/02/2017 12:14 AM SKIP LOCATOR) Narrative Performed At Diann Masters MD 04/02/2017 12:14 AM ECG ED Preliminary Interpretation - Not an Order Performed by: DIANN MASTERS Authorized by: DIANN MASTERS Rate: ECG rate:101 ECG rate assessment: tachycardic Rhythm: Rhythm: sinus rhythm Ectopy: Ectopy: none ST segments: ST segments:Normal T waves: T waves: normal * XR Chest 1 Vw (04/01/2017 6:46 PM SKIP LOCATOR) Narrative Performed At EXAMINATION:XR CHEST 1 VW [facility]IANT CLINICAL HISTORY:SHORTNESS OF BREATH COMPARISON:None IMPRESSION: Unremarkable single view chest The lungs are clear. The heart is not enlarged. The bony structures are within normal limits. [id number] Procedure Note Hm Interface, Radiology Results Incoming - 04/01/2017 6:50 PM SKIP LOCATOR EXAMINATION: XR CHEST 1 VW CLINICAL HISTORY: SHORTNESS OF BREATH COMPARISON: None IMPRESSION: Unremarkable single view chest The lungs are clear. The heart is not enlarged. The bony structures are within normal limits. [id number] Performing Organization Address [facility] Phone Number [facility] [address] [place] [address] * Estimated GFR (04/01/2017 5:55 PM SKIP LOCATOR) GFR Non Af Amer >90 mL/min/1.73 m2 [facility] OF PATHOLOGY AND GENOMIC MEDICINE GFR Af Amer >90 mL/min/1.73 m2 [facility]PART[facility] OF Comment: PATHOLOGY AND Chronic kidney [...] specimen Performing Organization Address City/State/Zipcode Phone Number [address] [place] [address] PATHOLOGY AND [facility] * Troponin (04/01/2017 5:55 PM SKIP LOCATOR) Troponin <0.01 0.00 - 0.60 ng/mL [facility]PART[facility] OF Comment: PATHOLOGY AND 0.11 - 1.49 GENOMIC MEDICINE ng/mlMay indicate increased risk of acute coronary syndrome. >=1.5 ng/ml Consistent with acute myocardial infarction. The diagnostic value of a single normal or non-diagnostic result is questionable.Serial samples at 2-6 hour intervals are required to rule out acute myocardial injury. Specimen Plasma specimen Performing Organization Address City/State/[place] [address] PATHOLOGY AND [facility] * CBC with platelet and differential (04/01/2017 5:55 PM SKIP LOCATOR) WBC 8.0 4.2 - 11.0 k/uL [facility] OF PATHOLOGY AND GENOMIC MEDICINE RBC 3.80 (L) 4.04 - 5.86 m/uL [facility] OF PATHOLOGY AND GENOMIC MEDICINE HGB 13.9 11.5 - 15.3 g/dL [facility] DEPART[facility] PATHOLOGY AND GENOMIC MEDICINE HCT 39.8 34.0 - 45.0 % [facility] OF PATHOLOGY AND GENOMIC MEDICINE MCV 104.7 (H) 80.0 - 98.0 fL [facility] OF PATHOLOGY AND GENOMIC MEDICINE MCH 36.6 (H) 27.0 - 34.0 pg [facility] OF PATHOLOGY AND GENOMIC MEDICINE MCHC 34.9 31.5 - 36.5 g/dL [facility] OF PATHOLOGY AND GENOMIC MEDICINE RDW - SD 49.3 37.0 - 51.0 fL [facility] OF PATHOLOGY AND GENOMIC MEDICINE MPV 9.7 7.4 - 10.4 fL [facility] OF PATHOLOGY AND GENOMIC MEDICINE Platelet count 337 150 - 400 k/uL [facility] OF PATHOLOGY AND GENOMIC MEDICINE Nucleated RBC 0.00 /100 WBC [facility] OF PATHOLOGY AND GENOMIC MEDICINE Neutrophils 57.0 36.0 - 66.0 % [facility] OF PATHOLOGY AND GENOMIC MEDICINE Lymphocytes 30.6 24.0 - 44.0 % [facility] OF PATHOLOGY AND GENOMIC MEDICINE Monocytes 8.0 (H) 0.0 - 6.0 % [facility] OF PATHOLOGY AND GENOMIC MEDICINE Eosinophils 3.0 0.0 - 6.0 % [facility] OF PATHOLOGY AND GENOMIC MEDICINE Basophils 1.0 0.0 - 1.2 % [facility] OF PATHOLOGY AND GENOMIC MEDICINE Immature granulocytes 0.4 0.0 - 1.0 % [facility] OF PATHOLOGY AND GENOMIC MEDICINE Specimen Blood Performing Organization Address City/[facility]/Zipcode Phone Number [address] * B natriuretic peptide (04/01/2017 5:55 PM SKIP LOCATOR) BNP 10 0 - 100 pg/mL [facility] PATHOLOGY AND GENOMIC MEDICINE Specimen Blood Performing Organization Address City/[facility] [place] [address] PATHOLOGY [facility] * Comprehensive metabolic panel (04/01/2017 5:55 PM SKIP LOCATOR) Sodium 141 135 - 150 mEq/L [facility] OF PATHOLOGY AND GENOMIC MEDICINE Potassium 3.1 (L) 3.5 - 5.0 mEq/L [facility] OF PATHOLOGY AND GENOMIC MEDICINE Chloride 104 100 - 109 mEq/L [facility]OLOGY AND GENOMIC MEDICINE CO2 30 24 - 32 mmol/L [facility] OF PATHOLOGY AND GENOMIC MEDICINE Anion gap 7 7 - 15 mEq/L [facility] OF Comment: PATHOLOGY AND Starting from May [facility] , anion gap calculation no longer incorporates potassium. Please note the change. BUN 6 (L) 7 - 18 mg/dL [facility] OF PATHOLOGY AND GENOMIC MEDICINE Creatinine 0.6 (L) 0.8 - 1.5 mg/dL [facility] OF PATHOLOGY AND GENOMIC MEDICINE Glucose 91 65 - 100 mg/dL [facility] OF PATHOLOGY AND GENOMIC MEDICINE Calcium 8.6 8.6 - 10.7 mg/dL [facility] OF PATHOLOGY AND GENOMIC MEDICINE Protein 7.7 6.3 - 8.2 g/dL [facility] OF PATHOLOGY AND GENOMIC MEDICINE Albumin 3.7 3.2 - 5.0 g/dL [facility] OF PATHOLOGY AND GENOMIC MEDICINE A/G ratio 0.9 0.7 - 3.8 [facility] OF PATHOLOGY AND GENOMIC MEDICINE Alkaline phosphatase 137 (H) 30 - 120 U/L [facility] OF PATHOLOGY AND GENOMIC MEDICINE AST 250 (H) 15 - 37 U/L [facility] OF PATHOLOGY AND GENOMIC MEDICINE ALT 104 (H) 30 - 65 U/L [facility] OF PATHOLOGY AND GENOMIC MEDICINE Total bilirubin 0.6 0.2 - 1.2 mg/dL [facility] OF PATHOLOGY AND GENOMIC MEDICINE Specimen Plasma specimen Performing Organization Address City/[facility] Phone Number [facility] [address] [place] [address] PATHOLOGY AND GENOMIC MEDICINE * ECG 12 lead (04/01/2017 5:28 PM SKIP LOCATOR) Ventricular rate 101 [facility] Atrial rate 101 [facility] CO interval 152 [facility] QRSD interval 88 [facility] QT interval 360 [facility] QTC interval 466 [facility] P axis 1 39 [facility] QRS axis 1 -27 [facility] T wave axis 19 [facility] EKG impression Sinus tachycardia-Possible [facility] MUSE Left atrial enlargement-Borderline ECG-No previous ECGs available- Performing Organization Address City/[facility] Cent[facility]ode Phone Number [facility] MUSE [address] [place] [address] after 02/16/2017 Insurance Payer Benefit Subscriber ID Type Phone Address Plan / Group BCBS BCBS xxxxxxxxxxxx PPO CHOICE PPO/[employer] PPO Advance Directives Patient has advance care planning documents on file. For more information, ivon e contact: Pawel Irby [address] [place] [address]
--- OUTSIDE RECORDS SUMMARY | 2018-02-17 19:53 | XMS REPORT | Clinical Summary ---
Author Author GLENN Neos TherapeuticsMadison Memorial HospitalAutomileParkhill The Clinic for WomenMarkLogicPeaceHealth [facility] Address Unknown Phone Unavailable Care Team Providers Care Independent Sales Representative Name Role Phone Elie Pang PCP Unavailable [...] hepatotoxicity is very rare. Expert panel of community coordinator for high school and air conditioning unit tester recommend use of statins in patient with [...] B1,LCMSMS 58 (L) 78 - 185 nmol/L [facility] Comment: Vitamin supplementation within 24 hours prior to blood draw may affect the accuracy of results. This test was developed and its analytical performance characteristics have been determined by [facility]. It has not been cleared or approved by FDA. This assay has been validated pursuant to the CLIA regulations and is used for clinical purposes. Resulting Agency Comment Performing Organization Information: Site ID: [facility] Name: [facility] Address: [address] [place] [phone] Director: Baldemar Bardales M.D., Ph.D Performing Organization Address City/State/Zipcode Phone Number [facility] [address] [place] [address] [facility] * Vitamin B12 and Folate (11/17/2017 3:28 PM CDT) Vitamin B12 402 200 - 1,100 pg/mL [facility] Folate (Folic Acid), 3.8 (L) ng/mL [facility] Serum Comment: Reference Range Low: <3.4 Borderline:3.4-5.4 Normal:>5.4 Specimen Blood Resulting Agency Comment Performing Organization Information: Site ID: [facility] Name: [facility] Address: [address] [place] [phone] Director: Simona Mccauley Performing Organization Address [facility] Phone Number [facility] [address] [place] [address] [facility] * Zinc (11/17/2017 3:28 PM CDT) Zinc 84 60 - 130 mcg/dL [facility] Comment: This test was developed and its analytical performance characteristics have been determined by [facility]. It has not been cleared or approved by the US Food and Drug Administration. This assay has been validated pursuant to the CLIA regulations and is used for clinical purposes. Specimen Blood Resulting Agency Comment Performing Organization Information: Site ID: [facility] Name: [facility] Address: [address] [place] [address] Director: Baldemar Bardales M.D., Ph.D Performing Organization Address [facility] Phone Number [facility] [address] [place] [address] [facility] * Vitamin A (11/17/2017 3:28 PM CDT) Vitamin A 20 (L) 38 - 98 mcg/dL [facility] Comment: Clin Chem Vol. 34.No.8. [id number]. 1998 Vitamin supplementation within 24 hours prior to blood draw may affect the accuracy of results. This test was developed and its analytical performance characteristics have been determined by [facility]. It has not been cleared or approved by the US Food and Drug Administration. This assay has been validated pursuant to the CLIA regulations and is used for clinical purposes. Specimen Blood Resulting Agency Comment Performing Organization Information: Site ID: [facility] Name: [facility] Address: [address] [place] [address] Director: Baldemar Bardales M.D., Ph.D Performing Organization Address [facility] Phone Number [facility] [address] [place] [address] [facility] * Vitamin D, 25-Hydroxy (11/17/2017 3:28 [...] D, (D2,D3), LC/MS/MS is recommended: order code 13323 (patients >2yrs). For more information on this test, go to: http://education.Zentrick/faq/CUO315 (This link is being provided for informational/educational purposes only.) Specimen Blood Resulting Agency Comment Performing Organization Information: Site ID: [facility] Name: [facility] Address: [address] [place] [phone] Director: Simona Mccauley Performing Organization Address City/[facility]/Zipcode Phone Number [facility] [address] [place] [address] [facility] * Pro-time/INR (11/17/2017 3:28 PM CDT) Only the most recent of 2 results within the time period is included. INR 1.3 (H) [facility] Comment: Reference Range 0.9-1.1 Moderate-intensity Warfarin Therapy 2.0-3.0 Higher-intensity Warfarin Therapy 3.0-4.0 PT 13.2 (H) 9.0 - 11.5 sec [facility] Comment: For more information on this test, go to: http://education.Zentrick/faq/SMZ022 Specimen Blood Resulting Agency Comment Performing Organization Information: Site ID: A Name: [facility] Address: [address] [place] [phone] Director: Simona Mccauley Performing Organization Address [facility]/Zipcode Phone Number [facility] [address] [place] [address] [facility] * CBC with platelet count + [...] Performing Organization Information: Site ID: RGA Name: [facility] Address: [address] [place] [phone] Director: Simona Mccauley Performing Organization Address City/State/Zipcode Phone Number [facility] [address] [place] [address] [facility] * Vitamin E (11/17/2017 3:28 PM CDT) Alpha-Tocopherol 13.4 5.7 - 19.9 mg/L [facility] Comment: Pediatric Term Infants (Cord Blood) 1.8 - 5.8 mg/L Levels of alpha-tocopherol < 5 mg/L are consistent with Vitamin E deficiency in adults Hhvn-Hmrsd-Xqbbhdcang 2.5 <4.4 mg/L [facility] Comment: Vitamin supplementation within 24 hours prior to blood draw may affect the accuracy of results. This test was developed and its analytical performance characteristics have been determined by [facility]. It has not been cleared or approved by the US Food and Drug Administration. This assay has been validated persuant to the CLIA regulations and is used for clinical purposes. Specimen Blood Resulting Agency Comment Performing Organization Information: Site ID: [facility] Name: [facility] Address: [address] [place] [address] Director: Baldemar Bardales M.D., Ph.D Performing Organization Address [facility] Phone Number [facility] [address] [place] [address] [facility] * Phosphorus (11/17/2017 3:28 PM CDT) Phosphorus, Serum 3.4 2.5 - 4.5 mg/dL [facility] Specimen Blood Resulting Agency Comment Performing Organization Information: Site ID: RGA Name: [facility] Address: [address] [place] [phone] Director: Simona Mccauley Performing Organization Address [facility] Phone Number [facility] [address] [place] [address] [facility] * Magnesium (11/17/2017 3:28 PM CDT) Magnesium, Serum 1.3 (L) 1.5 - 2.5 mg/dL [facility] Specimen Blood Resulting Agency Comment Performing Organization Information: Site ID: RGA Name: [facility] Address: [address] [place] [phone] Director: Simona Mccauley Performing Organization Address [facility] Phone Number [facility] [address] [place] [address] [facility] * Ethanol (11/17/2017 3:28 PM CDT) Alcohol Metabolites POSITIVE (A) <500 ng/mL [facility] Comment: => Indicates changed result(s) or information. Ethyl Glucuronide (ETG) >44988 (H) <500 ng/mL [facility] Comment: => Indicates changed result(s) or information. Ethyl Sulfate (ETS) >77544 (H) <100 ng/mL [facility] Comment: => Indicates changed result(s) or information. Comment Comment: Jinni This drug testing is for medical treatment only. Analysis was performed as non-forensic testing and these results should be used only by healthcare providers to render diagnosis or treatment, or to monitor progress of medical conditions. For assistance with interpreting these drug results, please contact a [facility] Toxicology Specialist: [phone] ( [phone] M-F, 8am-6pm EST. Specimen Blood Resulting Agency Comment Performing Organization Information: Site ID: IG Name: [facility] Address: [address] [place] [address] Director: Dr. Asim Loyd Performing Organization Address [facility] Hospitalcode Phone Number [facility] [address] [place] [address] [facility] * Hepatic function panel (11/17/2017 3:28 [...] Performing Organization Information: Site ID: RGA Name: [facility] Address: [address] [place] [phone] Director: Simona Mccauley Performing Organization Address City/[facility]/Zipcode Phone Number [facility] [address] [place] [address] [facility] * Basic Metabolic Panel (11/17/2017 3:28 [...] Performing Organization Information: Site ID: RGA Name: [facility] Address: [address] [place] [phone] Director: Simona Mccauley Performing Organization Address City/[facility] Hospitalcode Phone Number [facility] [address] [place] [address] [facility] * Hepatitis A Antibody, IgG ([facility] Only) (10/22/2017 11:54 AM CDT) Hep A IgG Nonreactive Nonreactive [facility] Specimen Blood Performing Organization Address City/State/Zipcode Phone Number [facility] [address] [place] [address] [facility] * CBC with platelet count + automated diff (10/22/2017 11:54 AM CDT) WBC 15.7 (H) 3.5 - 10.5 K/L [facility] RBC 3.55 (L) 3.93 - 5.22 M/L [facility] Hemoglobin 12.9 11.2 - 15.7 GM/DL [facility] Hematocrit 38.3 34.1 - 44.9 % [facility] MCV 107.9 (H) 79.4 - 94.8 fL [facility] MCH 36.3 (H) 25.6 - 32.2 pg [facility] MCHC 33.7 32.2 - 35.5 GM/DL [facility] RDW 14.4 11.7 - 14.4 % [facility] Platelets 396 150 - 450 K/CU MM [facility] MPV 11.1 9.4 - 12.3 fL [facility] nRBC 0 0 - 0 /100 WBC [facility] % Neutros 81 % [facility] % Lymphs 12 % [facility] % Monos 5 % [facility] % Eos 1 % [facility] % Baso 1 % [facility] # Neutros 12.67 (H) 1.56 - 6.13 K/L [facility] # Lymphs 1.90 1.18 - 3.74 K/L [facility] # Monos 0.76 (H) 0.24 - 0.36 K/L [facility] # Eos 0.14 0.04 - 0.36 K/L [facility] # Baso 0.13 (H) 0.01 - 0.08 K/L [facility] Immature 1 0 - 1 % [facility] Granulocytes-[facility] Specimen Blood Performing Organization Address City/State/[place] [address] [facility] * Alpha fetoprotein (AFP), tumor marker (10/22/2017 11:54 AM CDT) Alpha-Fetoprotein 4.6 <10.0 ng/mL [facility] Specimen Blood Performing Organization Address City/[facility]/Zipcode Phone Number [address] [address] [facility] * Hepatitis B core antibody, total (10/22/2017 11:54 AM CDT) Hep B Core Total Ab NON-REACTIVE Nonreactive [facility] Specimen Blood Performing Organization Address City/[facility]/Zipcode Phone Number [facility] [address] [place] [address] [facility] * Hepatitis B surface antibody (10/22/2017 11:54 AM CDT) Hep B S Ab <8.0 <8.0 mIU/mL [facility] Specimen Blood Performing Organization Address City/[facility] Hospitalcode Phone Number [facility] [address] [place], [place] [phone] [facility] after 02/16/2017 Insurance Payer Benefit Subscriber ID Type Phone Address Plan / Group BLUE CROSS/BLUE SHIELD BCBS PPO xxxxxxxxxxxx PPO [phone] [address] [place] [address] CHOICE
[2018-02-17] MEDS ORDERED: LORAZEPAM INJ 2 MG/ML VIAL IV PRN (20:00)
[2018-02-17] MEDS ORDERED: FOLIC ACID 5 MG/ML VIAL ONE (20:27)
[2018-02-17] MEDS ORDERED: THIAMINE HCL INJ 100 MG/ML 2ML VIAL ONE (20:27)
[2018-02-17] MEDS ORDERED: MULTIVITAMINS INJECTION ONE (20:27)
[2018-02-17] MEDS ORDERED: SODIUM CHLORIDE 0.9% 1000ML 1,000 ML ONE (20:27)
--- NOTE | 2018-02-17 20:41 | Diagnostic Imaging Report ---
EXAM: CHEST SINGLE (PORTABLE), AP 1 view INDICATION: Abdominal swelling and pain COMPARISON: None FINDINGS: LINES/TUBES: None LUNGS: Hazy opacity left mid lung. Bibasilar subsegmental atelectasis. PLEURA: No effusions or pneumothorax. HEART AND MEDIASTINUM: Normal size and contour. BONES AND SOFT TISSUES: No acute findings. IMPRESSION: Bibasilar subsegmental atelectasis. Hazy opacity left mid lung suspicious for pneumonia in the proper clinical setting. Signed by: Dr. Alecia Esparza M.D. on 02/17/2018 8:37 PM
--- NOTE | 2018-02-17 21:03 | Diagnostic Imaging Report ---
EXAM: CT ABDOMEN AND PELVIS with IV CONTRAST DATE: 02/17/2018 5:59 PM Time stamp on Exam: 2006 hours INDICATION: Abdominal swelling and pain, liver disease COMPARISON: None TECHNIQUE: The abdomen and pelvis were scanned using a multidetector helical scanner. Coronal and sagittal reformations were obtained. Dose modulation, iterative reconstruction, and/or weight based adjustment of the mA/kV was utilized to reduce the radiation dose to as low as reasonably achievable. Routine protocol performed. IV Contrast: 100 cc Isovue-370 Oral Contrast: Water FINDINGS: LOWER THORAX: No consolidations LIVER: Marked hepatomegaly. BILIARY: The gallbladder has been removed. No abnormal ductal dilation. SPLEEN: Mild splenomegaly PANCREAS: No masses ADRENALS: No nodules KIDNEYS: Symmetric perfusion. No enhancing masses. No hydronephrosis. GI TRACT: Nonspecific thickening of the ascending colon, likely related to portal hypertension. The appendix is not visualized. No bowel dilation. VESSELS: Mild atherosclerotic changes of the abdominal aorta. No aneurysm. The main portal and splenic veins are patent. Recanalization of the par umbilical vein. Portosystemic shunt, mesenteric, splenic and esophageal varices. PERITONEUM/RETROPERITONEUM: Small volume ascites. LYMPH NODES: No lymphadenopathy REPRODUCTIVE ORGANS: Unremarkable BLADDER: Unremarkable SOFT TISSUES: Unremarkable BONES: No suspicious bone lesions. IMPRESSION: Cirrhosis with portal hypertension manifested by small volume ascites and varices. Signed by: Dr. Alecia Esparza M.D. on 02/17/2018 9:00 PM
[2018-02-17 21:07] VITALS: BP 105/62
[2018-02-17 22:00] VITALS: BP 96/62
[2018-02-17] MEDS ORDERED: MAGNESIUM SULF 1GRAM/DEXTROSE 100 ML IV ONE (22:00)
[2018-02-17] MEDS ORDERED: IOPAMIDOL 370 MG/ML 200 ML INFUS..BTL INJ ONE (22:37)
[2018-02-17 23:00] VITALS: BP 93/68
[2018-02-17 23:59] VITALS: BP 92/64
[2018-02-18] VITALS (23 sets, daily range): BP systolic 86–113; BP diastolic 51–72
[2018-02-18] MEDS: POTASSIUM CHLORIDE 10MEQ/100ML 100 ML IV SCH ×2 (00:53→02:59)
[2018-02-18] MEDS ORDERED: HYDROMORPHONE 2MG/ML 2 MG/ML ML IV STA (01:57)
[2018-02-18] MEDS ORDERED: OCTREOTIDE ACETATE 1 ML ONE (05:16)
[2018-02-18] MEDS ORDERED: SODIUM CHLORIDE 0.9% 250ML 250 ML ONE (05:26)
[2018-02-18 05:50] LABS: BASOPHILS # (AUTO) 0.1 (0.0-0.1); BASOPHILS % 0.8 % (0.0-1.0); EOSINOPHILS # (AUTO) 0.1 (0.0-0.4); EOSINOPHILS % 0.8 % (0.0-6.0); HEMATOCRIT 27.8 % (34.2-44.1); HEMOGLOBIN 9.7 g/dL (12.0-16.0); LYMPHOCYTES # (AUTO) 1.5 (1.0-3.2); LYMPHOCYTES % 12.2 % (18.0-39.1); MEAN CORPUSCULAR HEMOGLOBIN 35.7 pg (28-32); MEAN CORPUSCULAR HGB CONC 34.9 g/dL (31-35); MEAN CORPUSCULAR VOLUME 102.2 fL (81-99); MONOCYTES # (AUTO) 0.9 (0.2-0.8); MONOCYTES % 7.7 % (4.4-11.3); NEUTROPHILS # (AUTO) 9.5 (2.1-6.9); NEUTROPHILS % 77.8 % (38.7-80.0); PLATELET COUNT 185 x10e3/uL (140-360); RED BLOOD COUNT 2.72 x10e6/uL (3.6-5.1); RED CELL DISTRIBUTION WIDTH 19.8 % (11.7-14.4)
[2018-02-18] MEDS: OCTREOTIDE ACETATE 500 MCG in SODIUM CHLORIDE 0.9% 250ML 250 ML IV SCH ×2 (06:20→15:56)
[2018-02-18 06:40] LABS: ALANINE AMINOTRANSFERASE 17 IU/L (0-55); ALBUMIN 2.6 g/dL (3.5-5.0); ALBUMIN/GLOBULIN RATIO 0.6 (0.8-2.0); ALKALINE PHOSPHATASE 302 IU/L (40-150); ANION GAP 18.3 mmol/L (8-16); BLOOD UREA NITROGEN 6 mg/dL (7-26); BUN/CREATININE RATIO 9 (6-25); CALCIUM 7.2 mg/dL (8.4-10.2); CARBON DIOXIDE 27 mmol/L (22-29); CHLORIDE 94 mmol/L (98-107); CREATININE, SERUM 0.68 mg/dL (0.57-1.11); EST GLOMERULAR FILTRATION RATE > 60 ML/MIN (60-); GLUCOSE 74 mg/dL (74-118); POTASSIUM 3.3 mmol/L (3.5-5.1); SODIUM 136 mmol/L (136-145)
[2018-02-18] MEDS: HYDROMORPHONE 2MG/ML 2 MG/ML ML IV PRN ×3 (06:52→16:17)
[2018-02-18 07:10] LABS: CREATINE KINASE MB 0.4 ng/mL (0-5.0)
[2018-02-18] MEDS: CEFEPIME HCL 2 GM VIAL IV SCH ×2 (07:46→18:00)
[2018-02-18] MEDS ORDERED: CEFEPIME 1GM/NS 0.9% 50 ML 100 ML IV ONE (07:46)
[2018-02-18] MEDS ORDERED: SODIUM CHLORIDE 0.9% 100 ML ONE (07:48)
--- NOTE | 2018-02-18 08:29 | NUR ---
2 gi consults in chart. patient sees salina roth outside of hospital. spoke to darren fabian, she states cancel the other 2 consults and call gonzalez. on the phone with his office now.
[2018-02-18] MEDS: PANTOPRAZOLE 40 MG 10ML VIAL IV SCH ×2 (10:12→20:41)
[2018-02-18] MEDS: ONDANSETRON HCL INJ 2 MG/ML VIAL IV PRN ×2 (10:45→16:17)
[2018-02-18 11:39] LABS: BASOPHILS # (AUTO) 0.1 (0.0-0.1); BASOPHILS % 0.7 % (0.0-1.0); EOSINOPHILS # (AUTO) 0.2 (0.0-0.4); EOSINOPHILS % 1.7 % (0.0-6.0); HEMATOCRIT 27.7 % (34.2-44.1); HEMOGLOBIN 9.6 g/dL (12.0-16.0); LYMPHOCYTES # (AUTO) 1.6 (1.0-3.2); LYMPHOCYTES % 12.9 % (18.0-39.1); MEAN CORPUSCULAR HEMOGLOBIN 35.7 pg (28-32); MEAN CORPUSCULAR HGB CONC 34.7 g/dL (31-35); MONOCYTES % 7.8 % (4.4-11.3); NEUTROPHILS # (AUTO) 9.3 (2.1-6.9); NEUTROPHILS % 76.2 % (38.7-80.0); PLATELET COUNT 194 x10e3/uL (140-360); RED BLOOD COUNT 2.69 x10e6/uL (3.6-5.1); RED CELL DISTRIBUTION WIDTH 20.1 % (11.7-14.4)
--- NOTE | 2018-02-18 11:42 | History and Physical ---
CHIEF COMPLAINT: Melena and leg pain. HISTORY OF PRESENT ILLNESS: The patient is a 47-year-old woman. She has a history of cirrhosis. She came to the emergency department complaining of some black stools. She had some mild abdominal pain. There was no fever. She denied any nausea or vomiting. She also complained of numbness and tingling in her feet that has been getting worse recently. PAST MEDICAL HISTORY 1. Cirrhosis of unclear etiology. 2. Gastroesophageal reflux disease. PAST SURGICAL HISTORY 1. Status post appendectomy. 2. Status post cholecystectomy. 3. Status post hysterectomy. 4. Status post tonsillectomy. FAMILY HISTORY: Significant for hypertension. SOCIAL HISTORY: The patient is a former smoker. She no longer uses alcohol. ALLERGIES: THERE ARE NO KNOWN DRUG ALLERGIES. REVIEW OF SYSTEMS: She has no headache or neck pain. She denies any swollen glands. She denies any chest pain or difficulty breathing. She has no cough. She did have some mild abdominal pain. She has some black tarry stools. There is no vomiting. She notes some tingling in her lower extremities and her feet. She denies any focal neurological complaints. PHYSICAL EXAMINATION VITALS: Blood pressure 92/57. The saturation is 96% on 1 liter. Temperature is 99.1, and heart rate is 104. HEENT: No facial swelling or erythema. Nasal mucosa is normal. The oropharynx is normal. LYMPHATIC: No submandibular, cervical or supraclavicular adenopathy. CARDIAC: Regular rate and rhythm with normal S1 and S2. There are no murmurs or rubs. RESPIRATORY: Auscultation of lungs reveals clear breath sounds bilaterally. There is no wheezing. ABDOMEN: Soft and nontender. There is no rebound or guarding. EXTREMITIES: No leg edema or calf tenderness. There is no cyanosis or clubbing. SKIN: No rashes. NEUROLOGIC: Exam shows no focal abnormalities. LABORATORY DATA: The FGE-tg-zhpwrkvlgl ratio is normal. Potassium is 3.3. The blood count is 9.7. The platelet count is 185. IMPRESSION 1. Anemia secondary to acute blood loss. 2. Major gastrointestinal bleed with melena. 3. Cirrhosis and liver disease. 4. Paresthesias in the lower extremities. 5. Hypokalemia. PLAN 1. Patient is awaiting GI consultation. 2. Monitor blood counts and transfuse as needed. 3. Replace potassium. Job#: [id number] MH
[2018-02-18 12:03] LABS: CREATINE KINASE MB 0.6 ng/mL (0-5.0)
--- NOTE | 2018-02-18 13:17 | NUR ---
SPOKE WITH PATIENT ABOUT RESOURCES FOR COMMUNITY, SHE STATES SHE HAS BENEFITS FOR COBRA THROUGH [employer] AND BEGAN A SECOND JOB AND THE CONFUSION IS THAT HER FIRST JOB DID NOT TURN IN THAT SHE WAS TERMED AND SECOND JOB KEPT HER SAME BC NUMBER. SHE STATES THAT IS THE CONFUSION, SHE STATES THAT SHE SPENT AN HOUR ON THE PHONE WITH THEM AND THEY STATED YES SHE HAS COVERAGE UNTIL Jan. GAVE PACKET OF INFORMATION WITH COMMUNITY RESOURCES FOR ASSISTANCE WITH LOW TO NO INCOME TO PATIENT. RESOURCES THAT PATIENT MAY BE ABLE TO FOLLOW UP UPON DISCHARGE. PT EDUCATED ON EACH RESOURCE AND UNDERSTANDING HOW TO FOLLOW UP TO SEE IF QUALIFIED FOR EACH RESOURCE. GAVE CARD FOR FURTHER QUESTIONS. EXPLAINED TRANSITION OF CARE FOLDER AND PUT CARD AND RESOURCES ALL IN FOLDER FOR HER.
--- NOTE | 2018-02-18 15:30 | NUR ---
[place] to bedside to discuss plan of care with patient/family. CM/SW role and care transitions discussed. Anticipated discharge plan discussed along with duration of care. CM/SW discussed patients right to make decisions in care. CM/SW work hours given. Patient lives: IN [place], [place] WITH SIGNIFICANT OTHER Admit/Transfer: ED POA/Emergency contact: GELY PALMER- [phone] Current/Previous Home Health: NONE PCP/Follow-up Care: RANJANA JIMÉNEZ MD Current/Previous DME: NONE AT THIS TIME Other Services: NONE Employment Status: EMPLOYED Areas of Concerns: NONE Referral Needs: NONE AT THIS TIME Education Needs: N/A IMM/HARMAN given and signed (if applicable): NONE Goal for discharge: PATIENT GOAL IS TO RETURN HOME INDEPENDENTLY CM left business card at the bedside with contact information. Name and number was also written on the patients whiteboard. Patient verbalized understanding of discussion. CM will follow-up with ongoing discharge and transition of care needs.
--- NOTE | 2018-02-18 15:43 | NUR ---
Nutrition Screen Note RD Recommendation for Physician: -Rec advancing to GI soft diet as medically appropriate -Consider Ensure Compact w/ each meal if PO <50% on regular diet Plan of Care: RD following, monitoring for tolerance and adequacy Nutrition reason for involvement: Diagnosis cirrhosis w/ ascites Primary Diagnose(s): 1. Anemia secondary to acute blood loss. 2. Major gastrointestinal bleed with melena. 3. Cirrhosis and liver disease. 4. Paresthesias in the lower extremities. 5. Hypokalemia. PMH: cirrhosis and GERD Ht: 61in Wt: 144lb BMI: 27.2kg/m2 IBW: 105lb RD Assessment: (02/18) Chart reviewed. Labs and meds reviewed. 47yo F, who is admitted for abdominal pain and black tarry stool. CT showed cirrhosis with portal hypertension manifested by small volume ascites and varices. Pt has been tolerating full liquid diet well. No complain of nausea, vomiting or abdominal pain at this time. LBM 12/25, black tarry stool per pt. GI was consulted. Pt has been eating less than usual for the last 4 months due to multiple medical issues. Unable to determine weight loss due to ascites. Will continue to monitor and follow. Current Diet: full liquid diet Malnutrition Evaluation (02/18/18) The patient does not meet criteria for a specified degree of malnutrition at this time. Will re-evaluate at follow-up as appropriate. Energy intake: <75% of estimated energy requirements for >3 months Weight loss: Unable to determine due to ascites No physical sign of malnutrition upon NFPA. Supporting Evidence: Fluid accumulation: Mild ascites Functional Status: no changes Diet Education Needs Assessment: Diet education not indicated. Nutrition Care Level: low Signed: Diane Ferguson, MS, RD, LD
[2018-02-18 18:30] LABS: BASOPHILS # (AUTO) 0.1 (0.0-0.1); BASOPHILS % 0.6 % (0.0-1.0); EOSINOPHILS # (AUTO) 0.3 (0.0-0.4); EOSINOPHILS % 2.2 % (0.0-6.0); HEMATOCRIT 27.6 % (34.2-44.1); HEMOGLOBIN 9.5 g/dL (12.0-16.0); LYMPHOCYTES # (AUTO) 1.8 (1.0-3.2); LYMPHOCYTES % 14.1 % (18.0-39.1); MEAN CORPUSCULAR HEMOGLOBIN 35.7 pg (28-32); MEAN CORPUSCULAR HGB CONC 34.4 g/dL (31-35); MEAN CORPUSCULAR VOLUME 103.8 fL (81-99); MONOCYTES % 7.8 % (4.4-11.3); NEUTROPHILS # (AUTO) 9.6 (2.1-6.9); NEUTROPHILS % 74.8 % (38.7-80.0); PLATELET COUNT 189 x10e3/uL (140-360); RED BLOOD COUNT 2.66 x10e6/uL (3.6-5.1); RED CELL DISTRIBUTION WIDTH 19.9 % (11.7-14.4)
[2018-02-18 18:57] LABS: CREATINE KINASE MB 0.8 ng/mL (0-5.0)
--- NOTE | 2018-02-18 19:00 | NUR ---
Bedside report received from Zayda Schultz RN. Pt received sitting up in bed with eyes open, AAOx4, no signs of distress noted, pt reports no pain or discomfort at this time. Bed in lowest and locked position, call light in reach of the pt.
[2018-02-18] MEDS: TRAMADOL HCL 50 MG TAB PO PRN (20:41)
[2018-02-19] VITALS (18 sets, daily range): BP systolic 83–113; BP diastolic 49–90
[2018-02-19 00:23] LABS: BASOPHILS # (AUTO) 0.1 (0.0-0.1); BASOPHILS % 0.8 % (0.0-1.0); EOSINOPHILS # (AUTO) 0.3 (0.0-0.4); EOSINOPHILS % 2.5 % (0.0-6.0); HEMATOCRIT 25.7 % (34.2-44.1); HEMOGLOBIN 8.9 g/dL (12.0-16.0); LYMPHOCYTES # (AUTO) 1.7 (1.0-3.2); LYMPHOCYTES % 14.7 % (18.0-39.1); MEAN CORPUSCULAR HGB CONC 34.6 g/dL (31-35); MONOCYTES # (AUTO) 0.9 (0.2-0.8); MONOCYTES % 7.8 % (4.4-11.3); NEUTROPHILS # (AUTO) 8.7 (2.1-6.9); NEUTROPHILS % 73.5 % (38.7-80.0); PLATELET COUNT 180 x10e3/uL (140-360); RED BLOOD COUNT 2.47 x10e6/uL (3.6-5.1); RED CELL DISTRIBUTION WIDTH 19.7 % (11.7-14.4)
[2018-02-19] MEDS: OCTREOTIDE ACETATE 500 MCG in SODIUM CHLORIDE 0.9% 250ML 250 ML IV SCH ×4 (02:15→23:08)
[2018-02-19] MEDS: TRAMADOL HCL 50 MG TAB PO PRN ×2 (02:48→09:00)
[2018-02-19 04:47] LABS: BASOPHILS # (AUTO) 0.1 (0.0-0.1); BASOPHILS % 0.9 % (0.0-1.0); EOSINOPHILS # (AUTO) 0.4 (0.0-0.4); EOSINOPHILS % 3.5 % (0.0-6.0); HEMATOCRIT 26.7 % (34.2-44.1); LYMPHOCYTES # (AUTO) 1.6 (1.0-3.2); LYMPHOCYTES % 14.3 % (18.0-39.1); MEAN CORPUSCULAR HEMOGLOBIN 35.7 pg (28-32); MEAN CORPUSCULAR HGB CONC 33.7 g/dL (31-35); MONOCYTES # (AUTO) 0.9 (0.2-0.8); MONOCYTES % 7.6 % (4.4-11.3); NEUTROPHILS # (AUTO) 8.4 (2.1-6.9); NEUTROPHILS % 73.2 % (38.7-80.0); PLATELET COUNT 180 x10e3/uL (140-360); RED BLOOD COUNT 2.52 x10e6/uL (3.6-5.1); RED CELL DISTRIBUTION WIDTH 19.5 % (11.7-14.4)
[2018-02-19] MEDS: CEFEPIME 2 GM/NS 0.9% 100 ML 100 ML IV SCH ×2 (06:11→18:21)
[2018-02-19] MEDS: OYST-CAL-D 500MG TABLET PO SCH ×2 (09:00→17:41)
[2018-02-19] MEDS: SPIRONOLACTONE 25 MG TAB PO SCH (09:00)
[2018-02-19] MEDS: GABAPENTIN 300 MG CAP PO SCH ×2 (09:30→17:41)
[2018-02-19] MEDS: FOLIC ACID 1 MG TAB PO SCH (09:30)
[2018-02-19] MEDS: PANTOPRAZOLE 40 MG 10ML VIAL IV SCH ×2 (09:30→21:00)
[2018-02-19] MEDS ORDERED: POTASSIUM CHLORIDE 20 MEQ TAB CR PO NR (09:30)
[2018-02-19 12:34] LABS: BASOPHILS # (AUTO) 0.1 (0.0-0.1); BASOPHILS % 0.9 % (0.0-1.0); EOSINOPHILS # (AUTO) 0.2 (0.0-0.4); EOSINOPHILS % 1.9 % (0.0-6.0); HEMATOCRIT 27.2 % (34.2-44.1); HEMOGLOBIN 9.3 g/dL (12.0-16.0); LYMPHOCYTES # (AUTO) 1.7 (1.0-3.2); LYMPHOCYTES % 14.1 % (18.0-39.1); MEAN CORPUSCULAR HGB CONC 34.2 g/dL (31-35); MEAN CORPUSCULAR VOLUME 105.4 fL (81-99); MONOCYTES % 8.2 % (4.4-11.3); NEUTROPHILS # (AUTO) 9.1 (2.1-6.9); NEUTROPHILS % 73.9 % (38.7-80.0); PLATELET COUNT 173 x10e3/uL (140-360); RED BLOOD COUNT 2.58 x10e6/uL (3.6-5.1); RED CELL DISTRIBUTION WIDTH 18.9 % (11.7-14.4)
--- NOTE | 2018-02-19 18:02 | NUR ---
RECEIVED TO RM 111 AAOX3 NO DISTRESS NOTED, UPDATED ON POC VOICED UNDERSTANDING, DENIES PAIN AT THIS TIME, IVF INFUSING TO L HAND 18G NO SS OF INFILTRATION NOTED, L FA 20G SL, NO OTHER CO VOICED CALL LIGHT IN REACH WILL CONTINUE OT MONITOR
[2018-02-19] MEDS: SUCRALFATE 1 GM TAB PO SCH ×2 (18:21→21:00)
--- NOTE | 2018-02-19 19:10 | NUR ---
REPORT RECEIVED FROM OFF GOING NURSE,PT RESTING IN BED ALERT AND ORIENTED, WITH FAMILY IN BED, IV INFUSING PER ORDER, PT DENIES NEEDS, CALL LIGHT IN REACH, INSTRUCTED TO CALL WITH NEEDS
[2018-02-19 19:43] LABS: HEMATOCRIT 28.7 % (34.2-44.1); HEMOGLOBIN 9.7 g/dL (12.0-16.0)
[2018-02-19] MEDS ORDERED: OCTREOTIDE ACETATE 2 ML ONE (22:56)
[2018-02-19] MEDS ORDERED: SODIUM CHLORIDE 0.9% 250ML 250 ML ONE (22:57)
[2018-02-19] MEDS ORDERED: SODIUM CHLORIDE 0.9% 100 ML ONE (22:57)
[2018-02-20] VITALS: BP 99/56
--- NOTE | 2018-02-20 05:11 | NUR ---
PT RESTING IN BED WITH EYES CLOSED, NO DISTRESS NOTED, CALL LIGHT IN REACH, IV INFUSING PER ORDER
[2018-02-20] MEDS: CEFEPIME 2 GM/NS 0.9% 100 ML 100 ML IV SCH ×2 (05:53→17:37)
[2018-02-20 06:14] LABS: HEMATOCRIT 26.2 % (34.2-44.1); HEMOGLOBIN 8.8 g/dL (12.0-16.0)
[2018-02-20 06:31] LABS: INR 1.31; PROTHROMBIN TIME 17.4 seconds (11.9-14.5)
[2018-02-20 06:32] LABS: PARTIAL THROMBOPLASTIN TIME 43.9 seconds (23.8-35.5)
--- NOTE | 2018-02-20 07:00 | NUR ---
SHIFT REPORT RECEIVED FROM NIGHT RN. PT DENIES NEEDS AT THIS TIME.
[2018-02-20 07:05] LABS: ANION GAP 13.6 mmol/L (8-16); BLOOD UREA NITROGEN 5 mg/dL (7-26); BUN/CREATININE RATIO 8 (6-25); CALCIUM 7.5 mg/dL (8.4-10.2); CARBON DIOXIDE 28 mmol/L (22-29); CHLORIDE 95 mmol/L (98-107); CREATININE, SERUM 0.66 mg/dL (0.57-1.11); EST GLOMERULAR FILTRATION RATE > 60 ML/MIN (60-); GLUCOSE 93 mg/dL (74-118); LIPASE 58 U/L (8-78); MAGNESIUM 1.3 MG/DL (1.3-2.1); POTASSIUM 3.6 mmol/L (3.5-5.1); SODIUM 133 mmol/L (136-145)
[2018-02-20] MEDS: OCTREOTIDE ACETATE 500 MCG in SODIUM CHLORIDE 0.9% 250ML 250 ML IV SCH ×2 (08:02→16:29)
[2018-02-20] MEDS: FOLIC ACID 1 MG TAB PO SCH (08:02)
[2018-02-20] MEDS: SUCRALFATE 1 GM TAB PO SCH ×4 (08:02→20:20)
[2018-02-20] MEDS: OYST-CAL-D 500MG TABLET PO SCH ×2 (08:02→17:33)
[2018-02-20] MEDS: GABAPENTIN 300 MG CAP PO SCH ×2 (08:02→17:33)
[2018-02-20] MEDS: PANTOPRAZOLE 40 MG 10ML VIAL IV SCH ×2 (08:02→20:20)
[2018-02-20] MEDS: SPIRONOLACTONE 25 MG TAB PO SCH (08:02)
[2018-02-20 08:46] VITALS: BP 108/53
[2018-02-20] MEDS ORDERED: SODIUM CHLORIDE 0.9% 250ML 250 ML ONE (08:56)
[2018-02-20 09:00] VITALS: BP 108/53
[2018-02-20] MEDS: AZITHROMYCIN 500MG/NS 250 ML 250 ML IV SCH (09:09)
[2018-02-20] MEDS: GUAIFENESIN 600 MG TAB PO SCH ×2 (09:10→17:37)
[2018-02-20] MEDS: ALBUTEROL/IPRATROPIUM 3 ML NEB NEB SCH ×4 (11:00→23:10)
[2018-02-20 12:45] VITALS: BP 101/50
[2018-02-20 17:13] VITALS: BP 115/64
[2018-02-20] MEDS: METOPROLOL SUCCINATE 25 MG TAB XL PO SCH (17:37)
--- NOTE | 2018-02-20 19:10 | NUR ---
REPORT RECEIVED FROM OFF GOING NURSE,PT RESTING IN BED ALERT AND ORIENTED, NO DISTRESS NOTED, DENIES NEEDS, IV INFUSING PER ORDER, CALL LIGHT IN REACH, INSTRUCTED TO CALL WITH NEEDS
[2018-02-20 20:00] VITALS: BP 89/54
[2018-02-21] VITALS (7 sets, daily range): BP systolic 94–107; BP diastolic 50–58
[2018-02-21] MEDS: GUAIFENESIN 600 MG TAB PO SCH ×4 (00:15→17:00)
[2018-02-21] MEDS: TRAMADOL HCL 50 MG TAB PO PRN ×2 (00:40→20:45)
[2018-02-21] MEDS: OCTREOTIDE ACETATE 500 MCG in SODIUM CHLORIDE 0.9% 250ML 250 ML IV SCH ×2 (02:26→12:36)
[2018-02-21] MEDS: ALBUTEROL/IPRATROPIUM 3 ML NEB NEB SCH ×6 (03:00→23:30)
[2018-02-21 05:21] LABS: BASOPHILS # (AUTO) 0.1 (0.0-0.1); BASOPHILS % 0.6 % (0.0-1.0); EOSINOPHILS # (AUTO) 0.2 (0.0-0.4); EOSINOPHILS % 1.7 % (0.0-6.0); HEMATOCRIT 26.5 % (34.2-44.1); HEMOGLOBIN 8.9 g/dL (12.0-16.0); LYMPHOCYTES # (AUTO) 1.6 (1.0-3.2); LYMPHOCYTES % 13.4 % (18.0-39.1); MEAN CORPUSCULAR HEMOGLOBIN 36.3 pg (28-32); MEAN CORPUSCULAR HGB CONC 33.6 g/dL (31-35); MEAN CORPUSCULAR VOLUME 108.2 fL (81-99); MONOCYTES # (AUTO) 1.2 (0.2-0.8); NEUTROPHILS # (AUTO) 8.7 (2.1-6.9); NEUTROPHILS % 73.4 % (38.7-80.0); PLATELET COUNT 177 x10e3/uL (140-360); RED BLOOD COUNT 2.45 x10e6/uL (3.6-5.1); RED CELL DISTRIBUTION WIDTH 18.5 % (11.7-14.4)
[2018-02-21 05:51] LABS: ANION GAP 13.5 mmol/L (8-16); BLOOD UREA NITROGEN 6 mg/dL (7-26); BUN/CREATININE RATIO 9 (6-25); CALCIUM 7.8 mg/dL (8.4-10.2); CARBON DIOXIDE 27 mmol/L (22-29); CHLORIDE 98 mmol/L (98-107); CREATININE, SERUM 0.65 mg/dL (0.57-1.11); EST GLOMERULAR FILTRATION RATE > 60 ML/MIN (60-); GLUCOSE 94 mg/dL (74-118); MAGNESIUM 1.3 MG/DL (1.3-2.1); POTASSIUM 3.5 mmol/L (3.5-5.1); SODIUM 135 mmol/L (136-145)
[2018-02-21] MEDS: CEFEPIME 2 GM/NS 0.9% 100 ML 100 ML IV SCH (06:00)
--- NOTE | 2018-02-21 06:27 | NUR ---
PT RESTING IN BED ALERT AND ORIENTED, NO DISTRESS NOTED, DENIES NEEDS, CALL LIGHT IN REACH, INSTRUCTED TO CALL WITH NEEDS
--- NOTE | 2018-02-21 07:00 | NUR ---
SHIFT REPORT RECEIVED FROM NIGHT RN. PT DENIES NEEDS AT THIS TIME.
--- NOTE | 2018-02-21 08:30 | NUR ---
quick nasal flu swab done and taken to lab.
[2018-02-21] MEDS: SUCRALFATE 1 GM TAB PO SCH ×4 (08:52→20:45)
[2018-02-21] MEDS: PANTOPRAZOLE 40 MG 10ML VIAL IV SCH ×2 (08:52→20:45)
[2018-02-21] MEDS: SPIRONOLACTONE 25 MG TAB PO SCH (08:52)
[2018-02-21] MEDS: FOLIC ACID 1 MG TAB PO SCH (08:52)
[2018-02-21] MEDS: AZITHROMYCIN 500MG/NS 250 ML 250 ML IV SCH (08:52)
[2018-02-21] MEDS: GABAPENTIN 300 MG CAP PO SCH (08:52)
[2018-02-21] MEDS: OYST-CAL-D 500MG TABLET PO SCH ×2 (08:52→16:56)
[2018-02-21] MEDS: METOPROLOL SUCCINATE 25 MG TAB XL PO SCH (08:53)
[2018-02-21] MEDS ORDERED: CARAFATE1 GM PO (11:01)
[2018-02-21] MEDS ORDERED: TOPROL XL25 MG PO (11:01)
[2018-02-21] MEDS ORDERED: Calcium Carbonate PO (11:01)
[2018-02-21] MEDS ORDERED: LEVAQUIN500 MG PO (11:01)
[2018-02-21] MEDS ORDERED: GABAPENTIN300 MG PO (11:01)
[2018-02-21] MEDS ORDERED: MUCINEX600 MG PO (11:01)
[2018-02-21] MEDS ORDERED: CEFTIN PO (11:01)
[2018-02-21] MEDS ORDERED: ZITHROMAX500 MG PO (11:01)
--- NOTE | 2018-02-21 11:29 | NUR ---
OK FROM THE STANDPOINT OF DR. IGLESIAS TO DISCHARGE HOME. PT TO CONTINUE TAKING PEPCID AND CARAFATE AND FOLLOW UP IN HIS OFFICE IN ONE WEEK.
--- NOTE | 2018-02-21 11:50 | NUR ---
ASKED TO CALL [place] AT 1800 ABOUT WEATHER OR NOT PT HAS RUN ANY FEVER FOR POSSIBLE DISCHARGE HOME.
[2018-02-21] MEDS ORDERED: LEVOFLOXACIN 750MG/D5W 150ML 150 ML IV SCH (14:00)
[2018-02-21] MEDS: GABAPENTIN 100 MG CAP PO SCH (16:56)
--- NOTE | 2018-02-21 19:05 | NUR ---
REPORT RECEIVED FROM OFF GOING NURSE, PT RESTING IN BED ALERT AND ORIENTED, NO DISTRESS NOTED, DENIES NEEDS, CALL LIGHT IN REACH, INSTRUCTED TO CALL WITH NEEDS
[2018-02-22] VITALS: BP 109/54
[2018-02-22] MEDS: ALBUTEROL/IPRATROPIUM 3 ML NEB NEB SCH ×4 (03:15→15:23)
[2018-02-22] MEDS: OCTREOTIDE ACETATE 500 MCG in SODIUM CHLORIDE 0.9% 250ML 250 ML IV SCH ×3 (03:28→15:35)
[2018-02-22 04:00] VITALS: BP 106/55
[2018-02-22] MEDS: TRAMADOL HCL 50 MG TAB PO PRN ×2 (05:51→15:35)
[2018-02-22] MEDS: GUAIFENESIN 600 MG TAB PO SCH ×3 (05:51→11:40)
--- NOTE | 2018-02-22 05:52 | NUR ---
PT ALERT AND ORIENTED, RESTING IN BED, DENIES NEEDS, NO DISTRESS NOTED, IV INFUSING PER ORDER, CALL LIGHT IN REACH, INSTRUCTED TO CALL WITH NEEDS
[2018-02-22 06:14] LABS: BASOPHILS # (AUTO) 0.1 (0.0-0.1); BASOPHILS % 0.5 % (0.0-1.0); EOSINOPHILS # (AUTO) 0.2 (0.0-0.4); EOSINOPHILS % 2.2 % (0.0-6.0); HEMATOCRIT 26.8 % (34.2-44.1); HEMOGLOBIN 8.8 g/dL (12.0-16.0); LYMPHOCYTES # (AUTO) 1.4 (1.0-3.2); MEAN CORPUSCULAR HEMOGLOBIN 35.9 pg (28-32); MEAN CORPUSCULAR HGB CONC 32.8 g/dL (31-35); MEAN CORPUSCULAR VOLUME 109.4 fL (81-99); MONOCYTES # (AUTO) 1.3 (0.2-0.8); MONOCYTES % 11.8 % (4.4-11.3); NEUTROPHILS # (AUTO) 7.9 (2.1-6.9); NEUTROPHILS % 71.6 % (38.7-80.0); PLATELET COUNT 191 x10e3/uL (140-360); RED BLOOD COUNT 2.45 x10e6/uL (3.6-5.1); RED CELL DISTRIBUTION WIDTH 18.3 % (11.7-14.4)
[2018-02-22 06:34] LABS: ANION GAP 14.4 mmol/L (8-16); BLOOD UREA NITROGEN 5 mg/dL (7-26); BUN/CREATININE RATIO 7 (6-25); CALCIUM 8.2 mg/dL (8.4-10.2); CARBON DIOXIDE 25 mmol/L (22-29); CHLORIDE 97 mmol/L (98-107); CREATININE, SERUM 0.68 mg/dL (0.57-1.11); EST GLOMERULAR FILTRATION RATE > 60 ML/MIN (60-); GLUCOSE 101 mg/dL (74-118); MAGNESIUM 1.3 MG/DL (1.3-2.1); POTASSIUM 3.4 mmol/L (3.5-5.1); SODIUM 133 mmol/L (136-145)
--- NOTE | 2018-02-22 07:00 | NUR ---
SHIFT REPORT RECEIVED FROM NIGHT RN. PT DENIES NEEDS AT THIS TIME.
[2018-02-22] MEDS ORDERED: POTASSIUM CHLORIDE 20 MEQ TAB CR PO STA (07:29)
[2018-02-22] MEDS ORDERED: LEVAQUIN500 MG PO (07:50)
[2018-02-22] MEDS ORDERED: LEVOFLOXACIN 750MG/D5W 150ML 150 ML IV SCH (08:00)
[2018-02-22] MEDS: SUCRALFATE 1 GM TAB PO SCH ×2 (08:02→11:39)
[2018-02-22] MEDS: FOLIC ACID 1 MG TAB PO SCH (08:03)
[2018-02-22] MEDS: PANTOPRAZOLE 40 MG 10ML VIAL IV SCH (08:03)
[2018-02-22] MEDS: OYST-CAL-D 500MG TABLET PO SCH (08:03)
[2018-02-22] MEDS: SPIRONOLACTONE 25 MG TAB PO SCH (08:03)
[2018-02-22] MEDS: GABAPENTIN 100 MG CAP PO SCH (08:03)
[2018-02-22] MEDS: METOPROLOL SUCCINATE 25 MG TAB XL PO SCH (08:32)
[2018-02-22 08:34] VITALS: BP 102/55
[2018-02-22 09:00] VITALS: BP 102/55
[2018-02-22 09:33] LABS: CLARITY,URINE HAZY (CLEAR); COLOR,URINE YELLOW (YELLOW)
[2018-02-22 09:34] LABS: BILIRUBIN,URINE 2+ (NEGATIVE); KETONES,URINE 2+ (NEGATIVE); LEUKOCYTE ESTERASE ,URINE NEGATIVE (NEGATIVE); NITRITE,URINE NEGATIVE (NEGATIVE); PROTEIN,URINE DIPSTICK 1+ (NEGATIVE); URINE UROBILINOGEN 0.2 mg/dL (0.2 - 1)
[2018-02-22 09:57] LABS: BACTERIA,URINE FEW /HPF; EPITHELIAL CELLS,URINE MANY /LPF; RBC,URINE 0-5 /HPF (0-5); WBC,URINE (MAN) 0-5 /HPF (0-5)
--- NOTE | 2018-02-22 10:55 | Diagnostic Imaging Report ---
EXAMINATION: CHEST SINGLE (PORTABLE) COMPARISON: Chest x-ray 02/17/2018 INDICATION: Flulike symptoms DISCUSSION: Frontal view of the chest obtained at 0833 hours. HEART AND MEDIASTINUM: Stable cardiomegaly and central vascular prominence. LINES: None. LUNGS: Increasing groundglass opacities predominantly in the mid and lower lung zones. No interstitial edema. PLEURA: No large effusions. No pneumothorax. BONES AND SOFT TISSUES: No focal osseous lesion. The soft tissues are normal. IMPRESSION: 1. Stable cardiomegaly and central vascular congestion. 2. Increasing bilateral groundglass opacities, either due to posterior atelectasis or developing infiltrate. Signed by: Dr. Lian Watson MD on 02/22/2018 10:51 AM
[2018-02-22 12:26] VITALS: BP 116/62
[2018-02-22 16:30] VITALS: BP 106/63
--- NOTE | 2018-02-22 16:30 | NUR ---
[place] [facility] CALLED TO GIVE RESULTS OF HOME O2 EVAL AND CHEST X-RAY WELL PT BEING AFIBRILE ALL DAY WITHOUT MEDICATION. ORDER TO DC HOME WITH SCRIPTS.
--- NOTE | 2018-02-22 17:00 | NUR ---
PT GIVEN INSTRUCTIONS ON PRESCRIPTIONS GIVEN. PT STATES UNDERSTANDING. PT'S IV DC'D WITH TIP INTACT,BLEEDING STOPPED AND DRESSING PLACED. PT DENIES FURTHER NEEDS AT THIS TIME.
--- NOTE | 2018-02-22 21:29 | Discharge Summary ---
ADMISSION DIAGNOSES: 1. Gastrointestinal bleed secondary to cirrhosis. 2. Anemia secondary to gastrointestinal bleed. 3. Gastroesophageal reflux disease. 4. Neuropathy. DISCHARGE DIAGNOSES: 1. Gastrointestinal bleed secondary to cirrhosis. 2. Anemia secondary to gastrointestinal bleed. 3. Gastroesophageal reflux disease. 4. Neuropathy. 5. Hypokalemia. 6. Hypocalcemia. 7. Hyponatremia. 8. Pneumonia. HISTORY: Patient has a history of cirrhosis of unclear etiology and acid reflux. SURGICAL HISTORY: Patient had surgical history of appendectomy, cholecystectomy, hysterectomy, tonsillectomy. HOSPITAL COURSE: A 47-year-old female came to the ER complaining of black stool and mild abdominal pain. She had no fever and denies nausea and vomiting. On admission, her hemoglobin was 8.8 in the ER, transfused 2 units of PRBCs. She was started on octreotide drip and a Protonix drip. GI was consulted. Her stool came back positive for blood, but her hemoglobin remained stable, so her gas specialist said she can followup outpatient for any workup as she sees someone in the medical center. CT of the abdomen showed cirrhosis with portal hypertension manifested by small-volume ascites and varices. Chest x-ray on admission showed bibasilar subsegmental atelectasis, hazy opacity in left mid lung suspicious for pneumonia. Urine culture on admission showed E. coli. Blood culture on admission was negative. Patient was afebrile on admission, but did have a white count. The white count never resolved, but she did develop a fever throughout hospitalization. A repeat chest x-ray was done that showed vascular congestion and worsening pneumonia. Antibiotics were changed from Zithromax and Rocephin to Levaquin. With the Levaquin, the patient is afebrile. Flu screen was negative. Blood cultures were repeated, which were not back at the time of discharge, and the UA is negative. Patient is very adamant about discharging home today because she has to work tomorrow and she cannot afford to miss work, so patient will be discharged home with Levaquin, Mucinex, sucralfate. She will continue her omeprazole and given a prescription for gabapentin per her request. Vital signs stable. Patient afebrile. Patient understands discharge instructions and agreed to plan. I will continue to follow the cultures and change antibiotics as needed. Dictated by Sravanthi Fairview, [employer] MD Job#: [id number]
== END 2018-02-22 17:01 | disposition home or self-care (01) | DRG 432 ==
LOC: ER 16:25 → ERHOLD 19:49 → ICU 21:10 → MED/SURG 02-19 17:53
PROVIDERS: ADMIT Internal Medicine; ATTEND Internal Medicine
PROC: 30233N1 Transfusion of Nonautologous Red Blood Cells into Peripheral Vein, Percutaneous Approach (ICD-10-PCS; principal; 2018-02-17)
DX: K70.31 Alcoholic cirrhosis of liver with ascites (principal); J18.9 Pneumonia, unspecified organism; K76.6 Portal hypertension; K92.1 Melena; D62 Acute posthemorrhagic anemia; N39.0 Urinary tract infection, site not specified; E87.1 Hypo-osmolality and hyponatremia; I85.10 Secondary esophageal varices without bleeding; I86.4 Gastric varices; K31.89 Other diseases of stomach and duodenum; G62.9 Polyneuropathy, unspecified; E87.6 Hypokalemia; E83.51 Hypocalcemia; B96.20 Unspecified Escherichia coli [E. coli] as the cause of diseases classified elsewhere; Z87.891 Personal history of nicotine dependence; I95.9 Hypotension, unspecified; F10.11 Alcohol abuse, in remission; Z79.82 Long term (current) use of aspirin
CPT/HCPCS: 36415; 71045; 74177; 80048; 80053; 81001; 81025; 82140; 82150; 82270; 82550; 82553; 83690; 83735; 83880; 84484; 85014; 85018; 85025; 85610; 85730; 86850; 86900; 86920; 87040; 87086; 87186; 87400; 93005; 94640; 99285; J0456; J0692; J1940; J2353; J2405; J3370; J3411; J3475; J3480; J7030; J7050; P9016; Q9967

== ENCOUNTER 2018-06-15 13:50 | Inpatient (IN) | payer MEDICARE, OTHER ==
[~2018-06-15] VITALS: Ht 154.9 cm; Wt 63.5 kg
[~2018-06-15 13:50] MED LIST: ASPIRIN81 MG PO; CARAFATE1 GM PO; CEFTIN PO; Calcium Carbonate PO; FOLIC ACID1 MG PO; GABAPENTIN300 MG PO; LASIX20 MG PO; LEVAQUIN500 MG PO; MUCINEX600 MG PO; OMEPRAZOLE40 MG PO; SPIRONOLACTONE25 MG PO; TOPROL XL25 MG PO; VITAMIN D1000 UNI1 PO; ZITHROMAX500 MG PO
--- OUTSIDE RECORDS SUMMARY | 2018-06-15 13:53 | XMS REPORT | Clinical Summary ---
Author Author GLENN Convergence PharmaceuticalsBenewah Community HospitalIfinityStone County Medical CenterAptidataSe[facility] Address Unknown Phone Unavailable Care Team Providers Care Residential Tech Name Role Phone Elie Pang PCP Unavailable [...] hepatotoxicity is very rare. Expert panel of delimber operator and medical services coordinator recommend use of statins in patient with [...] MA rec cd 10/20/2017 Telephone Hepatology after 06/14/2017 Family History Medical History Relation Name Comments [...] of liver 11:54 AM CDT (HCC) after 06/14/2017 Results * Vitamin B1 (Thiamine), Whole Blood, LC/MS/MS (11/17/2017 3:28 PM CDT) Vitamin B1,LCMSMS 58 (L) 78 - 185 nmol/L [facility] Comment: Vitamin supplementation within 24 hours prior to blood draw may affect the accuracy of results. This test was developed and its analytical performance characteristics have been determined by [facility]. It has not been cleared or approved by FDA. This assay has been validated pursuant to the CLIA regulations and is used for clinical purposes. Specimen Resulting Agency Comment Performing Organization Information: Site ID: SLI Name: [facility] Address: [address] [place] [phone] Director: Baldemar Bardales M.D., Ph.D Performing Organization Address City/State/Zipcode Phone Number [facility] [address] [place] [address] [facility] * Vitamin B12 and Folate (11/17/2017 3:28 PM CDT) Vitamin B12 402 200 - 1,100 pg/mL [facility] Folate (Folic Acid), 3.8 (L) ng/mL [facility] Serum Comment: Reference Range Low: <3.4 Borderline:3.4-5.4 Normal:>5.4 Specimen Blood Resulting Agency Comment Performing Organization Information: Site ID: RGA Name: [facility] Address: [address] [place] [phone] Director: Simona Mccauley Performing Organization Address [facility] Phone Number [facility] [address] [place] [address] [facility] * Zinc (11/17/2017 3:28 PM CDT) Zinc 84 60 - 130 mcg/dL [facility] Comment: This test was developed and its analytical performance characteristics have been determined by [facility]. It has not been cleared or approved by the US Food and Drug Administration. This assay has been validated pursuant to the CLIA regulations and is used for clinical purposes. Specimen Blood Resulting Agency Comment Performing Organization Information: Site ID: SL Name: [facility] Address: [address] [place] [address] Director: Baldemar Bardales M.D., Ph.D Performing Organization Address [facility] Phone Number [facility] [address] [place] [address] [facility] * Vitamin A (11/17/2017 3:28 PM CDT) Vitamin A 20 (L) 38 - 98 mcg/dL [facility] Comment: Clin Chem Vol. 34.No.8. [id number]. 1998 Vitamin supplementation within 24 hours prior to blood draw may affect the accuracy of results. This test was developed and its analytical performance characteristics have been determined by [facility]. It has not been cleared or approved by the US Food and Drug Administration. This assay has been validated pursuant to the CLIA regulations and is used for clinical purposes. Specimen Blood Resulting Agency Comment Performing Organization Information: Site ID: SLI Name: [facility] Address: [address] [place] [address] Director: Baldemar Bardales M.D., Ph.D Performing Organization Address [facility] Phone Number [facility] [address] [place] [address] [facility] * Vitamin D, 25-Hydroxy (11/17/2017 3:28 PM [...] D, (D2,D3), LC/MS/MS is recommended: order code [id number] (patients >2yrs). For more information on this test, go to: http://education.[employer]/faq/NEU075 (This link is being provided for informational/educational purposes only.) Specimen Blood Resulting Agency Comment Performing Organization Information: Site ID: [facility] Name: [facility] Address: [address] [place] [phone] Director: Simona Mccauley Performing Organization Address City/[facility]/Zipcode Phone Number [facility] [address] [place] [address] [facility] * Pro-time/INR (11/17/2017 3:28 PM CDT) Only the most recent of 2 results within the time period is included. INR 1.3 (H) [facility] Comment: Reference Range 0.9-1.1 Moderate-intensity Warfarin Therapy 2.0-3.0 Higher-intensity Warfarin Therapy 3.0-4.0 PT 13.2 (H) 9.0 - 11.5 sec [facility] Comment: For more information on this test, go to: http://education.[employer]/faq/XBE720 Specimen Blood Resulting Agency Comment Performing Organization Information: Site ID: Seb Name: [facility] Address: [address] [place] [phone] Director: Simona Mccauley Performing Organization Address [facility]/Zipcode Phone Number [facility] [address] [place] [address] [facility] * CBC with platelet count + [...] Performing Organization Information: Site ID: RGA Name: [facility] Address: [address] [place] [phone] Director: Simona Mccauley Performing Organization Address City/State/Zipcode Phone Number [facility] [address] [place] [address] [facility] * Vitamin E (11/17/2017 3:28 PM CDT) Alpha-Tocopherol 13.4 5.7 - 19.9 mg/L [facility] Comment: Pediatric Term Infants (Cord Blood) 1.8 - 5.8 mg/L Levels of alpha-tocopherol < 5 mg/L are consistent with Vitamin E deficiency in adults Mweu-Thrrv-Cqsgmpndgj 2.5 <4.4 mg/L [facility] Comment: Vitamin supplementation within 24 hours prior to blood draw may affect the accuracy of results. This test was developed and its analytical performance characteristics have been determined by [facility]. It has not been cleared or approved by the US Food and Drug Administration. This assay has been validated persuant to the CLIA regulations and is used for clinical purposes. Specimen Blood Resulting Agency Comment Performing Organization Information: Site ID: SLI Name: [facility] Address: [address] [place] [address] Director: Baldemar Bardales M.D., Ph.D Performing Organization Address [facility] Phone Number [facility] [address] [place] [address] [facility] * Phosphorus (11/17/2017 3:28 PM CDT) Phosphorus, Serum 3.4 2.5 - 4.5 mg/dL [facility] Specimen Blood Resulting Agency Comment Performing Organization Information: Site ID: RGA Name: [facility] Address: [address] [place] [phone] Director: Simona Mccauley Performing Organization Address [facility] Phone Number [facility] [address] [place] [address] [facility] * Magnesium (11/17/2017 3:28 PM CDT) Magnesium, Serum 1.3 (L) 1.5 - 2.5 mg/dL [facility] Specimen Blood Resulting Agency Comment Performing Organization Information: Site ID: RGA Name: [facility] Address: [address] [place] [phone] Director: Simona Mccauley Performing Organization Address [facility] Phone Number [facility] [address] [place] [address] [facility] * Ethanol (11/17/2017 3:28 PM CDT) Alcohol Metabolites POSITIVE (A) <500 ng/mL [facility] Comment: => Indicates changed result(s) or information. Ethyl Glucuronide (ETG) >51281 (H) <500 ng/mL [facility] Comment: => Indicates changed result(s) or information. Ethyl Sulfate (ETS) >96650 (H) <100 ng/mL [facility] Comment: => Indicates changed result(s) or information. Comment Comment: [employer] This drug testing is for medical treatment only. Analysis was performed as non-forensic testing and these results should be used only by healthcare providers to render diagnosis or treatment, or to monitor progress of medical conditions. For assistance with interpreting these drug results, please contact a [facility] Toxicology Specialist: [phone] ( ), M-F, 8am-6pm EST. Specimen Blood Resulting Agency Comment Performing Organization Information: Site ID: IG Name: [facility] Address: [address] [place] [phone] Director: Dr. Asim Loyd Performing Organization Address [facility] Phone Number [facility] [address] [place] [address] [facility] * Hepatic function panel (11/17/2017 3:28 [...] Performing Organization Information: Site ID: RGA Name: [facility] Address: [address] [place] [phone] Director: Simona Mccauley Performing Organization Address City/[facility]/Zipcode Phone Number [facility] [address] [place] [address] [facility] * Basic Metabolic Panel (11/17/2017 3:28 [...] Performing Organization Information: Site ID: RGA Name: [facility] Address: [address] [place] [address] Director: Simona Mccauley Performing Organization Address City/[facility] Phone Number [facility] [address] [place] [address] [facility] * Hepatitis A Antibody, IgG ([facility] Only) (10/22/2017 11:54 AM CDT) Hep A IgG Nonreactive Nonreactive [facility] Specimen Blood Performing Organization Address City/State/Zipcode Phone Number [facility] [address] [place] [address] [facility] * CBC with platelet count + automated diff (10/22/2017 11:54 AM CDT) WBC 15.7 (H) 3.5 - 10.5 K/L [facility] RBC 3.55 (L) 3.93 - 5.22 M/L [facility] Hemoglobin 12.9 11.2 - 15.7 GM/DL [facility] Hematocrit 38.3 34.1 - 44.9 % [facility] MCV 107.9 (H) 79.4 - 94.[address] [facility] MCH 36.3 (H) 25.6 - 32.[address] [facility] MCHC 33.7 32.2 - 35.5 GM/DL [facility] RDW 14.4 11.7 - 14.4 % [facility] Platelets 396 150 - 450 K/CU MM [facility] MPV 11.1 9.4 - 12.[address] [facility] nRBC 0 0 - 0 /[address] [facility] % Neutros 81 % [facility] % Lymphs 12 % [facility] % Monos 5 % [facility] % Eos 1 % [facility] % Baso 1 % [facility] # Neutros 12.67 (H) 1.56 - 6.13 K/L [facility] # Lymphs 1.90 1.18 - 3.74 K/L [facility] # Monos 0.76 (H) 0.24 - 0.36 K/L [facility] # Eos 0.14 0.04 - 0.36 K/L [facility] # Baso 0.13 (H) 0.01 - 0.08 K/L [facility] Immature 1 0 - 1 % [facility] Granulocytes-[facility] Specimen Blood Performing Organization Address City/State/[place] [address] [facility] * Alpha fetoprotein (AFP), tumor marker (10/22/2017 11:54 AM CDT) Alpha-Fetoprotein 4.6 <10.0 ng/mL [facility] Specimen Blood Performing Organization Address City/[facility]/Zipcode Phone Number [address] [address] [facility] * Hepatitis B core antibody, total (10/22/2017 11:54 AM CDT) Hep B Core Total Ab NON-REACTIVE Nonreactive [facility] Specimen Blood Performing Organization Address City/[facility]/Zipcode Phone Number [facility] [address] [place] [address] [facility] * Hepatitis B surface antibody (10/22/2017 11:54 AM CDT) Hep B S Ab <8.0 <8.0 mIU/mL [facility] Specimen Blood Performing Organization Address City/[facility] Phone Number [facility] [address] [place], [place] [phone] [facility] after 06/14/2017 Insurance Payer Benefit Subscriber ID Type Phone Address Plan / Group BLUE CROSS/BLUE SHIELD BCBS PPO xxxxxxxxxxxx PPO [phone] [address] [place] [address] CHOICE
--- OUTSIDE RECORDS SUMMARY | 2018-06-15 13:53 | XMS REPORT | Clinical Summary ---
Author Author [facility] [place] [facility] Address Unknown Phone Unavailable Care Team Providers Care International Marketing Coordinator Name Role Phone Elie Pang DO PCP [...] elevated (Primary Dx) 10/03/2017 Transcribe Access Orders after 06/14/2017 Family History Medical History Relation [...] travel history available. Last Filed Vital Signs Not on file Plan of Treatment Health Maintenance Due Date Last Done Comments CERVICAL CANCER SCREENING 1990 INFLUENZA VACCINE 09/24/2018 Procedures Comments Procedure Name Priority Date/Time Associated Diagnosis US ABDOMEN COMPLETE STAT 10/03/2017 Acid phosphatase elevated 5:57 PM CDT after 06/14/2017 Results * US Abdomen Complete (10/03/2017 5:57 PM CDT) Narrative Performed At EXAM: ultrasound [facility] CLINICAL DATA:R74.8 Abnormal levels of [...] IMPRESSION: Portal vein is incompletely visualized. [facility]aly. [id number] Procedure Note Interface, Radiology Results Incoming - 10/03/2017 6:20 [...] IMPRESSION: Portal vein is incompletely visualized. Hepatomegaly. [facility]-[id number] Performing Organization Address City/State/Zipcode Phone Number [facility] [address] [place] [address] after 06/14/2017 Insurance Payer Benefit Subscriber ID Type Phone Address Plan / Group BCBS BCBS xxxxxxxxxxxx PPO CHOICE PPO/MATT L EMPL PPO Advance Directives Patient has advance care planning documents on file. For more information, ivon e contact: Pawel Irby [address] [place] [address]
--- NOTE | 2018-06-15 14:07 | NUR ---
given urine cup; unable to void at present time
[2018-06-15 15:14] LABS: BASOPHILS % 0.3 % (0.0-1.0); EOSINOPHILS % 0.6 % (0.0-6.0); LYMPHOCYTES # (AUTO) 1.4 (1.0-3.2); LYMPHOCYTES % 20.8 % (18.0-39.1); MEAN CORPUSCULAR HEMOGLOBIN 27.8 pg (28-32); MEAN CORPUSCULAR HGB CONC 30.3 g/dL (31-35); MEAN CORPUSCULAR VOLUME 91.7 fL (81-99); MONOCYTES # (AUTO) 0.6 (0.2-0.8); MONOCYTES % 8.2 % (4.4-11.3); NEUTROPHILS # (AUTO) 4.6 (2.1-6.9); NEUTROPHILS % 69.5 % (38.7-80.0); PLATELET COUNT 119 x10e3/uL (140-360); RED BLOOD COUNT 2.05 x10e6/uL (3.6-5.1); RED CELL DISTRIBUTION WIDTH 17.5 % (11.7-14.4)
[2018-06-15 15:22] LABS: HEMATOCRIT 18.8 % (34.2-44.1); HEMOGLOBIN 5.7 g/dL (12.0-16.0)
[2018-06-15] MEDS ORDERED: OCTREOTIDE ACETATE 600 MCG in SODIUM CHLORIDE 0.9% 250ML 300 ML IV SCH (15:22)
[2018-06-15] MEDS ORDERED: OCTREOTIDE ACETATE 0.05 MG/ML AMP IV STA (15:22)
[2018-06-15 15:23] LABS: CLARITY,URINE HAZY (CLEAR); COLOR,URINE ORANGE (YELLOW)
[2018-06-15 15:24] LABS: BILIRUBIN,URINE 1+ (NEGATIVE); KETONES,URINE NEGATIVE (NEGATIVE); LEUKOCYTE ESTERASE ,URINE NEGATIVE (NEGATIVE); NITRITE,URINE NEGATIVE (NEGATIVE); PREGNANCY TEST, URINE NEGATIVE (NEGATIVE); PROTEIN,URINE DIPSTICK NEGATIVE (NEGATIVE); URINE UROBILINOGEN 0.2 mg/dL (0.2 - 1)
[2018-06-15] MEDS ORDERED: SODIUM CHLORIDE 0.9% 250ML 250 ML IV ONE (15:30)
[2018-06-15] MEDS ORDERED: SODIUM CHLORIDE 0.9% 500ML 500 ML IV ONE (15:30)
[2018-06-15] MEDS ORDERED: PANTOPRAZOLE 40 MG 10ML VIAL IV ONE (15:30)
[2018-06-15 15:34] LABS: INR 1.69; PROTHROMBIN TIME 20.5 seconds (11.9-14.5)
[2018-06-15 15:35] LABS: ALANINE AMINOTRANSFERASE 21 IU/L (0-55); ALBUMIN 2.5 g/dL (3.5-5.0); ALBUMIN/GLOBULIN RATIO 0.5 (0.8-2.0); ALKALINE PHOSPHATASE 207 IU/L (40-150); ANION GAP 17.6 mmol/L (8-16); BLOOD UREA NITROGEN < 5 mg/dL (7-26); CALCIUM 7.9 mg/dL (8.4-10.2); CARBON DIOXIDE 27 mmol/L (22-29); CHLORIDE 92 mmol/L (98-107); CREATININE, SERUM 0.71 mg/dL (0.57-1.11); EST GLOMERULAR FILTRATION RATE > 60 ML/MIN (60-); GLUCOSE 86 mg/dL (74-118); SODIUM 134 mmol/L (136-145)
[2018-06-15 15:36] LABS: PARTIAL THROMBOPLASTIN TIME 48.5 seconds (23.8-35.5)
[2018-06-15 15:45] LABS: BUN/CREATININE RATIO 7 (6-25); POTASSIUM 2.6 mmol/L (3.5-5.1)
[2018-06-15] MEDS ORDERED: MAGNESIUM SULFATE 2GM/50ML 50 ML IV ONE ×2 (15:45→21:00)
[2018-06-15 16:10] LABS: AMPHETAMINES SCREEN,URINE NEGATIVE (NEGATIVE); BENZODIAZEPINES SCREEN,URINE NEGATIVE (NEGATIVE); PHENCYCLIDINE SCREEN,URINE NEGATIVE (NEGATIVE)
[2018-06-15 16:13] LABS: ACETAMINOPHEN < 3 ug/mL (10-30)
[2018-06-15 16:29] LABS: BACTERIA,URINE FEW /HPF; EPITHELIAL CELLS,URINE MANY /LPF
[2018-06-15] MEDS ORDERED: MULTIVITAMINS- 12 INJECTION 10 ML, FOLIC ACID MDV 5 MG, THIAMINE HCL INJ 100 MG in SODI... IV ONE (17:45)
[2018-06-15] MEDS ORDERED: LORAZEPAM INJ 2 MG/ML VIAL IV PRN (17:45)
[2018-06-15] MEDS ORDERED: PHYTONADIONE 10 MG/ML AMP SC ONE (17:45)
--- OUTSIDE RECORDS SUMMARY | 2018-06-15 17:58 | XMS REPORT | Clinical Summary ---
Author Author [facility] [employer] [facility] [place] [facility] Address Unknown Phone Unavailable Care Team Providers Care Counter Attendant Name Role Phone Elie Pang DO PCP [...] CDT) Narrative Performed At EXAM: ultrasound abdomen [facility] CLINICAL DATA:R74.8 Abnormal levels of other serum [...] IMPRESSION: Portal vein is incompletely visualized. Hepatomegaly. [facility] [id number] Procedure Note Interface, Radiology Results Incoming - [...] IMPRESSION: Portal vein is incompletely visualized. Hepatomegaly. [facility] [place]-[id number] Performing Organization Address City/State/Zipcode Phone Number [facility] [address] [place] [address] after 06/14/2017 Insurance Payer Benefit Subscriber ID Type Phone Address Plan / Group BCBS BCBS xxxxxxxxxxxx PPO CHOICE PPO/MATT L EMPL PPO Advance Directives Patient has advance care planning documents on file. For more information, ivon e contact: Pawel Irby [address] [place] [address]
--- OUTSIDE RECORDS SUMMARY | 2018-06-15 17:59 | XMS REPORT | Clinical Summary ---
Author Author GLENN FSLogixValor Health[facility]St[facility] Address Unknown Phone Unavailable Care Team Providers Care Carrier Driver Name Role Phone Elie Pang PCP Unavailable [...] hepatotoxicity is very rare. Expert panel of restaurant line cook and artist relationship manager recommend use of statins in patient with [...] B1,LCMSMS 58 (L) 78 - 185 nmol/L [facility] Comment: Vitamin supplementation within 24 hours prior to blood draw may affect the accuracy of results. This test was developed and its analytical performance characteristics have been determined by [facility]. It has not been cleared or approved by FDA. This assay has been validated pursuant to the CLIA regulations and is used for clinical purposes. Specimen Resulting Agency Comment Performing Organization Information: Site ID: SLI Name: [facility] Address: [id number] [place] [address] Director: Baldemar Bardales M.D., Ph.D Performing Organization Address City/State/Zipcode Phone Number [facility] [address] [place] [address] [facility] * Vitamin B12 and Folate (11/17/2017 3:28 PM CDT) Vitamin B12 402 200 - 1,100 pg/mL [facility] Folate (Folic Acid), 3.8 (L) ng/mL [facility] Serum Comment: Reference Range Low: <3.4 Borderline:3.4-5.4 Normal:>5.4 Specimen Blood Resulting Agency Comment Performing Organization Information: Site ID: RGA Name: [facility] Address: [address] [place] [id number] Director: Simona Mccauley Performing Organization Address [facility] Phone Number [facility] [address] [place] [address] [facility] * Zinc (11/17/2017 3:28 PM CDT) Zinc 84 60 - 130 mcg/dL [facility] Comment: This test was developed and its analytical performance characteristics have been determined by [facility]. It has not been cleared or approved by the US Food and Drug Administration. This assay has been validated pursuant to the CLIA regulations and is used for clinical purposes. Specimen Blood Resulting Agency Comment Performing Organization Information: Site ID: SL Name: [facility] Address: [address] [place] [address] Director: Baldemar Bardales M.D., Ph.D Performing Organization Address [facility] Phone Number [facility] [address] [place] [address] [facility] * Vitamin A (11/17/2017 3:28 PM CDT) Vitamin A 20 (L) 38 - 98 mcg/dL [facility] Comment: Clin Chem Vol. 34.No.8. [id number]. 1998 Vitamin supplementation within 24 hours prior to blood draw may affect the accuracy of results. This test was developed and its analytical performance characteristics have been determined by [facility]. It has not been cleared or approved by the US Food and Drug Administration. This assay has been validated pursuant to the CLIA regulations and is used for clinical purposes. Specimen Blood Resulting Agency Comment Performing Organization Information: Site ID: SLI Name: [facility] Address: [address] [place] [address] Director: Baldemar Bardales M.D., Ph.D Performing Organization Address [facility] Phone Number [facility] [address] [place] [address] [facility] * Vitamin D, 25-Hydroxy (11/17/2017 3:28 [...] D, (D2,D3), LC/MS/MS is recommended: order code 90484 (patients >2yrs). For more information on this test, go to: http://education.[employer]/faq/YKJ500 (This link is being provided for informational/educational purposes only.) Specimen Blood Resulting Agency Comment Performing Organization Information: Site ID: [facility] Name: [facility] Address: [address] [place] [phone] Director: Simona Mccauley Performing Organization Address City/[facility]/Zipcode Phone Number [facility] [address] [place] [address] [facility] * Pro-time/INR (11/17/2017 3:28 PM CDT) Only the most recent of 2 results within the time period is included. INR 1.3 (H) [facility] Comment: Reference Range 0.9-1.1 Moderate-intensity Warfarin Therapy 2.0-3.0 Higher-intensity Warfarin Therapy 3.0-4.0 PT 13.2 (H) 9.0 - 11.5 sec [facility] Comment: For more information on this test, go to: http://education.[employer]/faq/NFT572 Specimen Blood Resulting Agency Comment Performing Organization Information: Site ID: Seb Name: [facility] Address: [address] [place] [address] Director: Simona Mccauley Performing Organization Address [facility]/Zipcode Phone Number [facility] [address] [place] [address] [facility] * CBC with platelet count + [...] Performing Organization Information: Site ID: RGA Name: [facility] Address: [address] [place] [address] Director: Simona Mccauley Performing Organization Address City/State/Zipcode Phone Number [facility] [address] [place] [address] [facility] * Vitamin E (11/17/2017 3:28 PM CDT) Alpha-Tocopherol 13.4 5.7 - 19.9 mg/L [facility] Comment: Pediatric Term Infants (Cord Blood) 1.8 - 5.8 mg/L Levels of alpha-tocopherol < 5 mg/L are consistent with Vitamin E deficiency in adults Upik-Hqiqv-Niyyufbqed 2.5 <4.4 mg/L [facility] Comment: Vitamin supplementation within 24 hours prior to blood draw may affect the accuracy of results. This test was developed and its analytical performance characteristics have been determined by [facility]. It has not been cleared or approved by the US Food and Drug Administration. This assay has been validated persuant to the CLIA regulations and is used for clinical purposes. Specimen Blood Resulting Agency Comment Performing Organization Information: Site ID: SLI Name: [facility] Address: [address] [place] [address] Director: Baldemar Bardales M.D., Ph.D Performing Organization Address [facility] Phone Number [facility] [address] [place] [address] [facility] * Phosphorus (11/17/2017 3:28 PM CDT) Phosphorus, Serum 3.4 2.5 - 4.5 mg/dL [facility] Specimen Blood Resulting Agency Comment Performing Organization Information: Site ID: RGA Name: [facility] Address: [address] [place] [address] Director: Simona Mccauley Performing Organization Address [facility] Phone Number [facility] [address] [place] [address] [facility] * Magnesium (11/17/2017 3:28 PM CDT) Magnesium, Serum 1.3 (L) 1.5 - 2.5 mg/dL [facility] Specimen Blood Resulting Agency Comment Performing Organization Information: Site ID: RGA Name: [facility] Address: [address] [place] [address] Director: Simona Mccauley Performing Organization Address [facility] Phone Number [facility] [address] [place] [address] [facility] * Ethanol (11/17/2017 3:28 PM CDT) Alcohol Metabolites POSITIVE (A) <500 ng/mL [facility] Comment: => Indicates changed result(s) or information. Ethyl Glucuronide (ETG) >59973 (H) <500 ng/mL [facility] Comment: => Indicates changed result(s) or information. Ethyl Sulfate (ETS) >79446 (H) <100 ng/mL [facility] Comment: => Indicates changed result(s) or information. Comment Comment: [employer] This drug testing is for medical treatment only. Analysis was performed as non-forensic testing and these results should be used only by healthcare providers to render diagnosis or treatment, or to monitor progress of medical conditions. For assistance with interpreting these drug results, please contact a [facility] Toxic[facility] Specialist: [phone] ( ), M-F, 8am-6pm EST. Specimen Blood Resulting Agency Comment Performing Organization Information: Site ID: IG Name: [facility] Address: [address] [place] [phone] Director: Dr. Asim Loyd Performing Organization Address [facility] Phone Number [facility] [address] [place] [address] [facility] * Hepatic function panel (11/17/2017 3:28 [...] Performing Organization Information: Site ID: RGA Name: [facility] Address: [address] [place] [address] Director: Simona Mccauley Performing Organization Address City/[facility]/Zipcode Phone Number [facility] [address] [place] [address] [facility] * Basic Metabolic Panel (11/17/2017 3:28 [...] Performing Organization Information: Site ID: RGA Name: [facility] Address: [address] [place] [address] Director: Simona Mccauley Performing Organization Address City/[facility] Phone Number [facility] [address] [place] [address] [facility] * Hepatitis A Antibody, IgG ([facility] Only) (10/22/2017 11:54 AM CDT) Hep A IgG Nonreactive Nonreactive [facility] Specimen Blood Performing Organization Address City/State/Zipcode Phone Number [facility] [address] [place] [address] [facility] * CBC with platelet count + automated diff (10/22/2017 11:54 AM CDT) WBC 15.7 (H) 3.5 - 10.5 K/L [facility] RBC 3.55 (L) 3.93 - 5.22 M/L [facility] Hemoglobin 12.9 11.2 - 15.7 GM/DL [facility] Hematocrit 38.3 34.1 - 44.9 % [facility] MCV 107.9 (H) 79.4 - 94.8 fL [facility] MCH 36.3 (H) 25.6 - 32.2 pg [facility] MCHC 33.7 32.2 - 35.5 GM/DL [facility] RDW 14.4 11.7 - 14.4 % [facility] Platelets 396 150 - 450 K/CU MM [facility] MPV 11.1 9.4 - 12.3 fL [facility] nRBC 0 0 - 0 /100 WBC [facility] % Neutros 81 % [facility] % Lymphs 12 % [facility] % Monos 5 % [facility] % Eos 1 % [facility] % Baso 1 % [facility] # Neutros 12.67 (H) 1.56 - 6.13 K/L [facility] # Lymphs 1.90 1.18 - 3.74 K/L [facility] # Monos 0.76 (H) 0.24 - 0.36 K/L [facility] # Eos 0.14 0.04 - 0.36 K/L [facility] # Baso 0.13 (H) 0.01 - 0.08 K/L [facility] Immature 1 0 - 1 % [facility] Granulocytes[facility] Specimen Blood Performing Organization Address City/State/[place] [address] [facility] * Alpha fetoprotein (AFP), tumor marker (10/22/2017 11:54 AM CDT) Alpha-Fetoprotein 4.6 <10.0 ng/mL [facility] Specimen Blood Performing Organization Address City/[facility]/Zipcode Phone Number [address] [address] [facility] * Hepatitis B core antibody, total (10/22/2017 11:54 AM CDT) Hep B Core Total Ab NON-REACTIVE Nonreactive [facility] Specimen Blood Performing Organization Address City/[facility]/Zipcode Phone Number [facility] [address] [place] [address] [facility] * Hepatitis B surface antibody (10/22/2017 11:54 AM CDT) Hep B S Ab <8.0 <8.0 mIU/mL [facility] Specimen Blood Performing Organization Address City/[facility] Phone Number [facility] [address] [place], [place] [phone] [facility] after 06/14/2017 Insurance Payer Benefit Subscriber ID Type Phone Address Plan / Group [employer] BCBS PPO xxxxxxxxxxxx PPO [phone] [id number] [place] [address] CHOICE
[2018-06-15] MEDS: POTASSIUM CHLORIDE 10MEQ/100ML 100 ML IV SCH ×4 (18:00→23:20)
[2018-06-15] MEDS: OCTREOTIDE ACETATE 500 MCG in SODIUM CHLORIDE 0.9% 250ML 249 ML IV SCH (18:05)
--- NOTE | 2018-06-15 18:18 | Diagnostic Imaging Report ---
Examination: Single AP view of the chest. COMPARISON: Chest radiograph 02/22/2018 INDICATION: Abdominal pain DISCUSSION: Lungs: Pulmonary vascular congestion. Persistent but decreased bibasilar atelectasis. There is no evidence of pneumonia or pulmonary edema. Pleura: Slight blunting of the right hemidiaphragm. Heart and mediastinum: Moderately enlarged cardiac silhouette. Bones and soft tissues: No acute bony abnormalities. Degenerative changes shoulder girdles. IMPRESSION: 1. Unchanged enlarged cardiac silhouette, central pulmonary vascular congestion, and possible trace right pleural effusion. 2. Persistent but decreased bibasilar atelectasis. Signed by: Dustin Stuart MD on 06/15/2018 6:15 PM
[2018-06-15] MEDS ORDERED: ONDANSETRON HCL INJ 2MG/ML 2ML 2 MG/ML VIAL IV ONE (19:00)
[2018-06-15] MEDS ORDERED: MORPHINE SULFATE INJ 4 MG/ML INJ 1ML IV PRN (19:00)
[2018-06-15] MEDS ORDERED: SODIUM CHLORIDE 0.9% 250ML 250 ML ONE (19:08)
--- NOTE | 2018-06-15 19:20 | NUR ---
BLOOD TRANSFUSION STARTED, PT VERBALIZED UNDERSTANDING OF NEED FOR PROCEDURE. CONSENT WAS OBTAINED PRIOR TO INITATION, BEDSIDE VERIFICATION COMPLETED AT 191, SEE FLOWSHEET. V/S/S, NAD NOTED, BREATHING EVEN/UNLABORED. WILL STAY AT BEDSIDE FOR FIRST 15 MIN TO MONITOR FOR REACTION, SEE FLOWSHEET FOR VITALS MONITORING.
[2018-06-15] MEDS: FUROSEMIDE INJ 10 MG/ML 2 ML VIAL IV PRN (20:25)
[2018-06-15 21:14] LABS: EOSINOPHILS % (MANUAL) 1 % (0-7); HYPOCHROMASIA MARKED; LYMPHOCYTES % (MANUAL) 8 % (19-48); MONOCYTES % (MANUAL) 2 % (3.4-9.0); NEUTROPHILS % (MANUAL) 85 % (40-74); PLATELET ESTIMATE SLIGHTLY DECREASED; PLATELET MORPHOLOGY COMMENT FEW LARGE; RBC MORPHOLOGY COMMENT NORMAL
[2018-06-15] MEDS: PANTOPRAZOLE 40 MG 10ML VIAL IV SCH (21:42)
--- NOTE | 2018-06-15 22:15 | NUR ---
TRANSFUSION OF FFP INITAITED AT THIS TIME, SEE ADMIN FLOWSHEET ON CHART.
--- NOTE | 2018-06-15 23:15 | NUR ---
RECEIVED REPORT FROM JAG MG DAY SHIFT NURSE.
[2018-06-16] VITALS (13 sets, daily range): BP systolic 84–112; BP diastolic 54–80
[2018-06-16] MEDS: POTASSIUM CHLORIDE 10MEQ/100ML 100 ML IV SCH ×3 (00:24→09:47)
[2018-06-16 00:42] LABS: BASOPHILS % 0.5 % (0.0-1.0); EOSINOPHILS # (AUTO) 0.1 (0.0-0.4); EOSINOPHILS % 1.2 % (0.0-6.0); LYMPHOCYTES # (AUTO) 1.3 (1.0-3.2); LYMPHOCYTES % 21.5 % (18.0-39.1); MEAN CORPUSCULAR HEMOGLOBIN 27.9 pg (28-32); MEAN CORPUSCULAR HGB CONC 31.1 g/dL (31-35); MEAN CORPUSCULAR VOLUME 89.8 fL (81-99); MONOCYTES # (AUTO) 0.5 (0.2-0.8); MONOCYTES % 8.4 % (4.4-11.3); NEUTROPHILS % 67.7 % (38.7-80.0); PLATELET COUNT 117 x10e3/uL (140-360); RED BLOOD COUNT 2.15 x10e6/uL (3.6-5.1)
[2018-06-16 00:51] LABS: ALANINE AMINOTRANSFERASE 19 IU/L (0-55); ALBUMIN 2.5 g/dL (3.5-5.0); ALBUMIN/GLOBULIN RATIO 0.6 (0.8-2.0); ALKALINE PHOSPHATASE 186 IU/L (40-150); ANION GAP 16.5 mmol/L (8-16); BLOOD UREA NITROGEN < 5 mg/dL (7-26); CALCIUM 7.5 mg/dL (8.4-10.2); CARBON DIOXIDE 25 mmol/L (22-29); CHLORIDE 95 mmol/L (98-107); CREATININE, SERUM 0.71 mg/dL (0.57-1.11); EST GLOMERULAR FILTRATION RATE > 60 ML/MIN (60-); GLUCOSE 82 mg/dL (74-118); SODIUM 133 mmol/L (136-145)
[2018-06-16 00:52] LABS: HEMATOCRIT 19.3 % (34.2-44.1)
[2018-06-16 00:53] LABS: BUN/CREATININE RATIO 7 (6-25); POTASSIUM 3.5 mmol/L (3.5-5.1)
--- NOTE | 2018-06-16 01:17 | NUR ---
SPOKE WITH HOUSTON BARTON NP COVERING DR. NIX FOR CRITICAL LAB VALUES.
--- NOTE | 2018-06-16 02:00 | NUR ---
INITIATION OF 2ND BAG OF FFP STARTED AT THIS TIME. SEE ADMIN. FLOW SHEET IN CHART.
[2018-06-16] MEDS: FUROSEMIDE INJ 10 MG/ML 2 ML VIAL IV PRN (03:10)
[2018-06-16] MEDS ORDERED: SODIUM CHLORIDE 0.9% 250ML 250 ML ONE (03:29)
--- NOTE | 2018-06-16 03:30 | NUR ---
2ND BAG OF PRBC ADMINISTERED. SEE ADMIN FLOWSHEET IN CHART.
[2018-06-16] MEDS ORDERED: SODIUM CHLORIDE 0.9% 250ML 250 ML IV ONE ×2 (03:45→10:15)
[2018-06-16 06:02] LABS: INR 1.52; PROTHROMBIN TIME 18.9 seconds (11.9-14.5)
--- NOTE | 2018-06-16 06:05 | NUR ---
3RD BAG OF PRBCS INITIATED. SEE ADMIN FLOWSHEET IN CHART.
[2018-06-16 06:09] LABS: BASOPHILS % 0.6 % (0.0-1.0); EOSINOPHILS # (AUTO) 0.1 (0.0-0.4); EOSINOPHILS % 1.6 % (0.0-6.0); LYMPHOCYTES # (AUTO) 1.2 (1.0-3.2); LYMPHOCYTES % 18.8 % (18.0-39.1); MEAN CORPUSCULAR HEMOGLOBIN 28.6 pg (28-32); MEAN CORPUSCULAR HGB CONC 31.9 g/dL (31-35); MEAN CORPUSCULAR VOLUME 89.6 fL (81-99); MONOCYTES # (AUTO) 0.5 (0.2-0.8); MONOCYTES % 8.4 % (4.4-11.3); NEUTROPHILS # (AUTO) 4.3 (2.1-6.9); NEUTROPHILS % 69.8 % (38.7-80.0); PLATELET COUNT 112 x10e3/uL (140-360); RED BLOOD COUNT 2.41 x10e6/uL (3.6-5.1); RED CELL DISTRIBUTION WIDTH 16.6 % (11.7-14.4)
[2018-06-16 06:12] LABS: HEMATOCRIT 21.6 % (34.2-44.1); HEMOGLOBIN 6.9 g/dL (12.0-16.0)
[2018-06-16] MEDS: ONDANSETRON HCL INJ 2MG/ML 2ML 2 MG/ML VIAL IV PRN ×2 (06:43→14:58)
--- NOTE | 2018-06-16 07:19 | NUR ---
REPORT GIVEN TO JAG SILVEIRA DAY SHIFT NURSE.
[2018-06-16] MEDS ORDERED: PANTOPRAZOLE SOD 40 MG TABEC PO SCH (07:30)
[2018-06-16 07:42] LABS: EOSINOPHILS % (MANUAL) 4 % (0-7); LYMPHOCYTES % (MANUAL) 25 % (19-48); NEUTROPHILS % (MANUAL) 71 % (40-74)
[2018-06-16] MEDS: OCTREOTIDE ACETATE 500 MCG in SODIUM CHLORIDE 0.9% 250ML 249 ML IV SCH ×2 (07:50→11:30)
[2018-06-16] MEDS: SUCRALFATE 1 GM TAB PO SCH ×4 (08:42→21:15)
[2018-06-16] MEDS: PANTOPRAZOLE 40 MG 10ML VIAL IV SCH ×2 (08:42→21:15)
[2018-06-16] MEDS: FUROSEMIDE 20 MG TAB PO SCH (08:43)
[2018-06-16] MEDS: SPIRONOLACTONE 25 MG TAB PO SCH (08:43)
[2018-06-16] MEDS ORDERED: GABAPENTIN 100 MG CAP PO SCH (09:00)
[2018-06-16] MEDS ORDERED: ERGOCALCIFEROL 50,000 UNIT CAP PO SCH (09:00)
[2018-06-16] MEDS ORDERED: FOLIC ACID 1 MG TAB PO SCH (09:00)
[2018-06-16] MEDS ORDERED: CALCIUM CARBONATE 500 MG CHEWABLE TABS PO SCH (09:00)
[2018-06-16] MEDS ORDERED: GABAPENTIN 300 MG CAP PO SCH ×2 (09:00→21:00)
[2018-06-16] MEDS ORDERED: NON-FORMULARY MEDICATION ([Calcium Carbonate] 500 MG) PO SCH (09:00)
[2018-06-16] MEDS ORDERED: CHOLECALCIFEROL 1,000 UNIT TAB PO SCH (09:00)
[2018-06-16] MEDS ORDERED: POTASSIUM CHLORIDE 10MEQ/100ML 100 ML IV ONE (10:00)
[2018-06-16] MEDS ORDERED: MAGNESIUM SULFATE 2GM/50ML 50 ML IV ONE ×2 (10:00→10:15)
[2018-06-16] MEDS ORDERED: HYDRALAZINE HCL 20 MG/ML VIAL IV PRN (10:30)
--- NOTE | 2018-06-16 11:00 | NUR ---
RECEIVED REPORT FROM JAG SILVEIRA. ASSUMED CARE AT THIS TIME.
--- NOTE | 2018-06-16 11:30 | NUR ---
4TH UNIT OF PRBC'S INITIATED PER ORDERS FROM MILDRED RODRIGUEZ NP. SEE TRANSUSION FLOWSHEET ON CHART.
--- NOTE | 2018-06-16 11:35 | NUR ---
CEMENT PAVER AT BEDSIDE FOR ABDOMEN ULTRASOUND AT THIS TIME.
[2018-06-16] MEDS: HYDROCODONE/APAP 5MG-325MG TAB PO PRN ×2 (11:50→21:22)
--- NOTE | 2018-06-16 12:25 | NUR ---
PT PROVIDED WITH COMPRESSION STOCKINGS AND SCD'S FOR B/L LE, TOLERATING WELL AT THIS TIME, WILL CONTINUE TO MONITOR.
--- NOTE | 2018-06-16 12:40 | NUR ---
KELLEY FISH AT BEDSIDE FOR PT EVAL AT THIS TIME.
[2018-06-16] MEDS ORDERED: LORAZEPAM 0.5 MG TAB PO PRN (13:00)
[2018-06-16] MEDS ORDERED: LORAZEPAM INJ 2 MG/ML VIAL IM PRN ×2 (13:00)
--- NOTE | 2018-06-16 13:28 | Diagnostic Imaging Report ---
EXAMINATION: Right upper quadrant ultrasound CLINICAL INDICATION: Alcohol abuse, cirrhosis evaluate for ascites COMPARISON: February 17, 2018 DISCUSSION: Transverse and longitudinal images of the abdomen were obtained. Mild amount of ascites within the abdomen and is most prominent in the left lower quadrant. IMPRESSION: Mild amount of ascites within the abdomen and is most prominent in the left lower quadrant Signed by: Dr. Jose Oneill M.D. on 06/16/2018 1:24 PM
--- NOTE | 2018-06-16 17:32 | Consultation ---
DATE OF CONSULTATION: 06/16/2018 REASON FOR CONSULTATION: To evaluate the patient's mood. HISTORY OF PRESENT ILLNESS: The patient is a 47-year-old female admitted to the hospital for alcohol abuse and cirrhosis. Psychiatric consultation is called to evaluate the patient's mood. The patient is alert, awake, and oriented to situation. She is in the bed in the ER. She claims that she is hospitalized for GI bleeding and cirrhosis of the liver. The patient claims that she is feeling depressed and anxious at this time due to her medical issues and also on recent job loss. The patient denies feeling hopeless or helpless. She denies any suicidal or homicidal ideation. She denies any hallucination. She complained of poor sleep and poor appetite. The patient claims she does not typically drink, but her last drink was a week ago. Ethanol level on is 134.8. PAST PSYCHIATRIC HISTORY: The patient denies past suicide attempts. She reported alcohol use occasionally. Last drink was one week ago as per patient. Ethanol level is 134.8 on the June 15. She denies any drug use. UDS is negative for recreational drugs. FAMILY HISTORY: Denies. SOCIAL HISTORY: The patient states she lives with her boyfriend. MENTAL STATUS EXAM: The patient is a young, middle-aged female. She is alert, awake, and oriented to situation. Her mood is depressed and anxious. She denies any suicidal or homicidal ideation. She denies any hallucination. Affect is congruent with mood. Psychomotor status is passive. Insight and judgment are fair. Memory appears to be grossly intact. Thought process is concrete. No delusions elicited. CURRENT MEDICATION: 1. [place] p.r.n. 2. Spironolactone. 3. Lasix. 4. Protonix. 5. Octreotide. 6. Zofran. 7. Sucralfate. 8. Ativan 1 mg IV q.4 hours p.r.n. 9. Neurontin 600 mg p.o. at bedtime. 10. Neurontin 200 mg p.o. daily. 11. Hydralazine. 12. Morphine. LABORATORY DATA: Current Labs: WBC 6.18, RBC 2.41, hemoglobin 6.9, hematocrit 21.6, platelets 112. Chemistries, sodium 133, potassium 2.5, chloride 95, CO2 of 25, BUN less than 5, creatinine 0.71, AST 169, ALT 19. Ethanol level 134.8. ASSESSMENT: 1. Adjustment disorder with mixed mood, depression, anxiety. 2. Alcohol use. PLAN OF TREATMENT: 1. Reduce and adjust Ativan to 0.5 mg IM q.4 hours p.r.n. 2. Add Ativan 0.5 mg p.o. q.6 hours p.r.n. 3. Add Remeron 15 mg p.o. at bedtime. 4. Continue Neurontin 200 mg p.o. daily and 600 mg p.o. at bedtime. 5. Monitor for mood. 6. Supportive therapy. 7. Recommend total abstinence from alcohol. 8. As dictated before. Thank you for this consultation. Dictated by Cristina Bynum PA-C Julia Mendoza MD [facility]/MODL /[id number]
--- NOTE | 2018-06-16 19:00 | NUR ---
Report received. Assumed care. Assessment done. See interventions. IV Sandostatin # 50mcg/hr or 2.5ml/hr.
[2018-06-16 19:14] LABS: BASOPHILS # (AUTO) 0.1 (0.0-0.1); BASOPHILS % 0.9 % (0.0-1.0); EOSINOPHILS # (AUTO) 0.1 (0.0-0.4); EOSINOPHILS % 2.1 % (0.0-6.0); HEMATOCRIT 28.3 % (34.2-44.1); HEMOGLOBIN 9.2 g/dL (12.0-16.0); LYMPHOCYTES # (AUTO) 1.1 (1.0-3.2); LYMPHOCYTES % 16.8 % (18.0-39.1); MEAN CORPUSCULAR HEMOGLOBIN 29.1 pg (28-32); MEAN CORPUSCULAR HGB CONC 32.5 g/dL (31-35); MEAN CORPUSCULAR VOLUME 89.6 fL (81-99); MONOCYTES # (AUTO) 0.6 (0.2-0.8); MONOCYTES % 8.6 % (4.4-11.3); NEUTROPHILS # (AUTO) 4.8 (2.1-6.9); NEUTROPHILS % 71.3 % (38.7-80.0); PLATELET COUNT 103 x10e3/uL (140-360); RED BLOOD COUNT 3.16 x10e6/uL (3.6-5.1); RED CELL DISTRIBUTION WIDTH 15.9 % (11.7-14.4)
[2018-06-16] MEDS: MIRTAZAPINE 15 MG TAB PO SCH (21:15)
--- NOTE | 2018-06-16 21:22 | NUR ---
Medicated for c/o headache and back pain
[2018-06-17] VITALS (28 sets, daily range): BP systolic 86–119; BP diastolic 54–83
[2018-06-17 00:47] LABS: BASOPHILS # (AUTO) 0.1 (0.0-0.1); BASOPHILS % 0.8 % (0.0-1.0); EOSINOPHILS # (AUTO) 0.1 (0.0-0.4); EOSINOPHILS % 1.5 % (0.0-6.0); HEMATOCRIT 29.7 % (34.2-44.1); HEMOGLOBIN 9.6 g/dL (12.0-16.0); LYMPHOCYTES # (AUTO) 1.2 (1.0-3.2); LYMPHOCYTES % 16.1 % (18.0-39.1); MEAN CORPUSCULAR HEMOGLOBIN 29.2 pg (28-32); MEAN CORPUSCULAR HGB CONC 32.3 g/dL (31-35); MEAN CORPUSCULAR VOLUME 90.3 fL (81-99); MONOCYTES # (AUTO) 0.5 (0.2-0.8); MONOCYTES % 7.4 % (4.4-11.3); NEUTROPHILS # (AUTO) 5.4 (2.1-6.9); NEUTROPHILS % 73.7 % (38.7-80.0); PLATELET COUNT 97 x10e3/uL (140-360); RED BLOOD COUNT 3.29 x10e6/uL (3.6-5.1); RED CELL DISTRIBUTION WIDTH 16.3 % (11.7-14.4)
[2018-06-17] MEDS: OCTREOTIDE ACETATE 500 MCG in SODIUM CHLORIDE 0.9% 250ML 249 ML IV SCH ×3 (04:24→17:30)
[2018-06-17 05:31] LABS: BASOPHILS # (AUTO) 0.1 (0.0-0.1); BASOPHILS % 0.8 % (0.0-1.0); EOSINOPHILS # (AUTO) 0.2 (0.0-0.4); HEMATOCRIT 28.8 % (34.2-44.1); HEMOGLOBIN 9.2 g/dL (12.0-16.0); LYMPHOCYTES # (AUTO) 1.4 (1.0-3.2); LYMPHOCYTES % 18.5 % (18.0-39.1); MEAN CORPUSCULAR HEMOGLOBIN 28.7 pg (28-32); MEAN CORPUSCULAR HGB CONC 31.9 g/dL (31-35); MEAN CORPUSCULAR VOLUME 89.7 fL (81-99); MONOCYTES # (AUTO) 0.7 (0.2-0.8); MONOCYTES % 9.3 % (4.4-11.3); NEUTROPHILS # (AUTO) 5.3 (2.1-6.9); PLATELET COUNT 99 x10e3/uL (140-360); RED BLOOD COUNT 3.21 x10e6/uL (3.6-5.1)
[2018-06-17 05:44] LABS: INR 1.64
[2018-06-17 05:45] LABS: PARTIAL THROMBOPLASTIN TIME 46.2 seconds (23.8-35.5)
[2018-06-17 05:57] LABS: ALANINE AMINOTRANSFERASE 17 IU/L (0-55); ALBUMIN 2.4 g/dL (3.5-5.0); ALKALINE PHOSPHATASE 163 IU/L (40-150); ANION GAP 14.2 mmol/L (8-16); BILIRUBIN,DIRECT 4.9 mg/dL (0.0-0.5); BLOOD UREA NITROGEN 5 mg/dL (7-26); BUN/CREATININE RATIO 6 (6-25); CALCIUM 7.4 mg/dL (8.4-10.2); CARBON DIOXIDE 27 mmol/L (22-29); CHLORIDE 94 mmol/L (98-107); CREATININE, SERUM 0.86 mg/dL (0.57-1.11); EST GLOMERULAR FILTRATION RATE > 60 ML/MIN (60-); GLUCOSE 80 mg/dL (74-118); MAGNESIUM 1.3 MG/DL (1.3-2.1); POTASSIUM 3.2 mmol/L (3.5-5.1); SODIUM 132 mmol/L (136-145)
[2018-06-17 06:36] LABS: B-TYPE NATRIURETIC PEPTIDE2 689.7 pg/mL (0-100)
[2018-06-17] MEDS: SUCRALFATE 1 GM TAB PO SCH ×4 (08:04→20:32)
[2018-06-17] MEDS: SPIRONOLACTONE 25 MG TAB PO SCH (08:04)
[2018-06-17] MEDS: PANTOPRAZOLE 40 MG 10ML VIAL IV SCH ×2 (08:04→20:32)
[2018-06-17] MEDS: FUROSEMIDE 20 MG TAB PO SCH (08:04)
[2018-06-17 08:55] LABS: BAND NEUTROPHILS % (MANUAL) 1 %; EOSINOPHILS % (MANUAL) 2 % (0-7); LYMPHOCYTES % (MANUAL) 20 % (19-48); METAMYELOCYTES % (MANUAL) 1 % (0-0); MONOCYTES % (MANUAL) 5 % (3.4-9.0); MYELOCYTES % (MANUAL) 1 % (0-0); NEUTROPHILS % (MANUAL) 67 % (40-74)
[2018-06-17] MEDS ORDERED: GABAPENTIN 100 MG CAP PO SCH ×2 (09:00→21:00)
[2018-06-17 09:02] LABS: HYPOCHROMASIA SLIGHT; PLATELET ESTIMATE SLIGHTLY DECREASED
[2018-06-17 09:03] LABS: PLATELET MORPHOLOGY COMMENT FEW LARGE; RBC MORPHOLOGY COMMENT NORMAL
[2018-06-17] MEDS ORDERED: ACETAMINOPHEN 325 MG TAB PO ONE (10:15)
[2018-06-17] MEDS ORDERED: ONDANSETRON HCL 4 MG ORAL DISINTEGRATING TAB PO PRN (11:30)
[2018-06-17] MEDS: GABAPENTIN 100 MG CAP PO SCH (12:00)
--- NOTE | 2018-06-17 12:57 | NUR ---
GAVE PACKET OF INFORMATION WITH COMMUNITY RESOURCES FOR ASSISTANCE WITH LOW TO NO INCOME TO PATIENT. RESOURCES THAT PATIENT MAY BE ABLE TO FOLLOW UP UPON DISCHARGE. PT EDUCATED ON EACH RESOURCE AND UNDERSTANDING HOW TO FOLLOW UP TO SEE IF QUALIFIED FOR EACH RESOURCE.
[2018-06-17] MEDS ORDERED: POTASSIUM CHLORIDE 20MEQ/100ML 200 ML IV ONE (13:15)
--- NOTE | 2018-06-17 13:41 | Progress Note ---
DATE: 06/17/2018 Psychiatric Progress Note SUBJECTIVE: The patient is evaluated and events noted. The patient is in the room in the ICU. She is alert, awake, and oriented to situation. She is calm and cooperative. She states she is feeling better. She is less anxious and less depressed. She denies any suicidal or homicidal ideation. She denies any hallucination. She reported sleeping more last night. She is currently n.p.o., awaiting for procedure today. She reports taking medication and complained of drowsiness today. The patient claimed that usually she takes 200 mg of Neurontin twice a day at home for neuropathy. ASSESSMENT: 1. Adjustment disorder with mixed mood, depression and anxiety. 2. Alcohol use. PLAN: 1. Plan is to reduce Neurontin 200 mg p.o. daily to 100 mg p.o. breakfast and lunch. 2. Reduce Neurontin 600 mg p.o. at bedtime to 200 mg p.o. at bedtime. 3. Continue with Remeron 15 mg p.o. at bedtime. 4. Supportive therapy. 5. Monitor for mood. Dictated by Cristina Bynum PA-C Julia Mendoza MD [facility]/WILLOWL /[id number]
[2018-06-17] MEDS: POTASSIUM CHLORIDE 20MEQ/100ML 100 ML IV SCH ×3 (16:00→19:00)
[2018-06-17] MEDS ORDERED: PROPRANOLOL HCL 10 MG TAB PO SCH (17:00)
--- NOTE | 2018-06-17 17:12 | Operative Report ---
DATE OF PROCEDURE: 06/17/2018 SURGEON: Rigo Barclay MD PROCEDURE: Esophagogastroduodenoscopy. INDICATIONS FOR PROCEDURE: Anemia, history of melena, history of cirrhosis of the liver. MEDICATIONS: The patient was done under MAC, please see anesthesiologist's note. PROCEDURE IN DETAIL: With the patient in left lateral decubitus position, flexible fiberoptic Olympus gastroscope was introduced into the esophagus under direct visualization without any difficulty. Grade 1 to 2 esophageal varices were noted without active bleeding or stigmata of recent hemorrhage. Small hiatal hernia was noted. There was a minute tongue of velvety red mucosa noted to extend proximally from the GE junction that was not biopsied due to the presence of the esophageal varices. The scope was then advanced with ease into the stomach and the mucosa overlying the antrum and the body revealed some diffuse portal hypertensive gastropathy. There was no active bleeding or stigmata of recent hemorrhage. The pylorus was intubated with ease and the scope was advanced all the way to the second portion of the duodenum. The scope was then withdrawn slowly, mucosa overlying the proximal second portion and the duodenal bulb grossly appeared to be within normal limits. The scope was then withdrawn back into the stomach and retroflexed and there were some small cardiac varices noted and no obvious fundal varices were appreciated. The scope was then straightened out, it was subsequently withdrawn. The patient tolerated the procedure well. IMPRESSION: 1. Grade 1 to 2 esophageal varices without active bleeding or stigmata of recent hemorrhage. 2. ? tongue of Garner epithelium not biopsied due to presence of varices. 3. Small hiatal hernia. 4. Cardiac varices without active bleeding or stigmata of recent hemorrhage. 5. Diffuse portal hypertensive gastropathy. PLAN: Follow H and H. Initiate Inderal 10 mg one p.o. b.i.d. Start full liquid diet. Rigo Barclay MD [facility]/MODL /[id number] cc: Rasheed Gonzalez MD
[2018-06-17] MEDS: OYST-CAL-D 500MG TABLET PO SCH (17:19)
[2018-06-17 19:11] LABS: BASOPHILS # (AUTO) 0.1 (0.0-0.1); BASOPHILS % 0.7 % (0.0-1.0); EOSINOPHILS # (AUTO) 0.1 (0.0-0.4); EOSINOPHILS % 1.2 % (0.0-6.0); HEMATOCRIT 29.6 % (34.2-44.1); HEMOGLOBIN 9.3 g/dL (12.0-16.0); LYMPHOCYTES # (AUTO) 1.4 (1.0-3.2); LYMPHOCYTES % 15.4 % (18.0-39.1); MEAN CORPUSCULAR HEMOGLOBIN 29.4 pg (28-32); MEAN CORPUSCULAR HGB CONC 31.4 g/dL (31-35); MEAN CORPUSCULAR VOLUME 93.7 fL (81-99); MONOCYTES # (AUTO) 1.1 (0.2-0.8); MONOCYTES % 12.6 % (4.4-11.3); NEUTROPHILS # (AUTO) 6.2 (2.1-6.9); NEUTROPHILS % 69.7 % (38.7-80.0); PLATELET COUNT 107 x10e3/uL (140-360); RED BLOOD COUNT 3.16 x10e6/uL (3.6-5.1); RED CELL DISTRIBUTION WIDTH 16.5 % (11.7-14.4)
[2018-06-17] MEDS ORDERED: PROPOFOL IV EMULSION 10 MG/ML 20 ML VIAL ONE (19:12)
[2018-06-17] MEDS ORDERED: LIDOCAINE HCL 2% LOCAL INJ 5 ML SDV VIAL INJ ONE (19:12)
[2018-06-17] MEDS ORDERED: MIDAZOLAM HCL 2 MG/2 ML VIAL ONE (19:18)
[2018-06-17] MEDS ORDERED: FENTANYL CITRATE/PF 100MCG/2 ML INJ ONE (19:18)
[2018-06-17] MEDS: MIRTAZAPINE 15 MG TAB PO SCH (20:32)
[2018-06-17] MEDS ORDERED: GABAPENTIN 300 MG CAP PO SCH (21:00)
[2018-06-17] MEDS: HYDROCODONE/APAP 5MG-325MG TAB PO PRN (22:18)
--- NOTE | 2018-06-18 01:30 | NUR ---
Report given to Sabina RM for transfer to MS 1. Pt escorted in WC by RN to room 114 with no acute signs of distress. Pt transferred from WC to bed with SBA with call light within reach.
[2018-06-18 01:45] VITALS: BP 100/60
[2018-06-18 01:46] LABS: BASOPHILS # (AUTO) 0.1 (0.0-0.1); BASOPHILS % 0.8 % (0.0-1.0); EOSINOPHILS # (AUTO) 0.1 (0.0-0.4); EOSINOPHILS % 1.3 % (0.0-6.0); HEMATOCRIT 27.4 % (34.2-44.1); HEMOGLOBIN 8.5 g/dL (12.0-16.0); LYMPHOCYTES # (AUTO) 1.3 (1.0-3.2); LYMPHOCYTES % 16.9 % (18.0-39.1); MEAN CORPUSCULAR HEMOGLOBIN 28.9 pg (28-32); MEAN CORPUSCULAR VOLUME 93.2 fL (81-99); NEUTROPHILS # (AUTO) 5.4 (2.1-6.9); NEUTROPHILS % 68.6 % (38.7-80.0); PLATELET COUNT 91 x10e3/uL (140-360); RED BLOOD COUNT 2.94 x10e6/uL (3.6-5.1); RED CELL DISTRIBUTION WIDTH 16.3 % (11.7-14.4)
--- NOTE | 2018-06-18 02:52 | NUR ---
SPOKE TO DR. Milly SPAIN AT THIS TIME. NEW ORDER RCV FOR BANANA BAG AT 50MLS/HR.
--- NOTE | 2018-06-18 03:00 | NUR ---
LATE ENTRY----RECEIVED PATIENT FROM ICU PER WHEELCHAIR, PATIENT POSITIONED IN BED, NO DISTRESS NOTED,CALL LIGHT IN REACH. WILL CONTINUE TO MONITOR. NO COMPLAINT OF PAIN.
[2018-06-18 04:00] VITALS: BP 96/53
--- NOTE | 2018-06-18 04:26 | NUR ---
DR. Milly SPAIN REQUESTED TO HAVE INTERVENTIONAL RADIOLOGY TO DO A TAP(PARACENTESIS), INFORMED PATIENT AND PATIENT REFUSED.
[2018-06-18 06:23] LABS: ALANINE AMINOTRANSFERASE 15 IU/L (0-55); ALBUMIN 2.5 g/dL (3.5-5.0); ALBUMIN/GLOBULIN RATIO 0.6 (0.8-2.0); ALKALINE PHOSPHATASE 149 IU/L (40-150); ANION GAP 11.3 mmol/L (8-16); BLOOD UREA NITROGEN 6 mg/dL (7-26); BUN/CREATININE RATIO 7 (6-25); CALCIUM 7.8 mg/dL (8.4-10.2); CARBON DIOXIDE 30 mmol/L (22-29); CHLORIDE 96 mmol/L (98-107); CREATININE, SERUM 0.84 mg/dL (0.57-1.11); EST GLOMERULAR FILTRATION RATE > 60 ML/MIN (60-); GLUCOSE 95 mg/dL (74-118); POTASSIUM 3.3 mmol/L (3.5-5.1); SODIUM 134 mmol/L (136-145)
--- NOTE | 2018-06-18 06:29 | NUR ---
CALL PLACED TO DR. JOHNSTON TO INFORM OF PATIENT REFUSAL.
[2018-06-18 06:50] LABS: BASOPHILS # (AUTO) 0.1 (0.0-0.1); BASOPHILS % 0.9 % (0.0-1.0); EOSINOPHILS # (AUTO) 0.2 (0.0-0.4); HEMATOCRIT 29.5 % (34.2-44.1); HEMOGLOBIN 9.1 g/dL (12.0-16.0); LYMPHOCYTES # (AUTO) 1.4 (1.0-3.2); LYMPHOCYTES % 16.9 % (18.0-39.1); MEAN CORPUSCULAR HEMOGLOBIN 29.1 pg (28-32); MEAN CORPUSCULAR HGB CONC 30.8 g/dL (31-35); MEAN CORPUSCULAR VOLUME 94.2 fL (81-99); MONOCYTES # (AUTO) 1.1 (0.2-0.8); MONOCYTES % 13.5 % (4.4-11.3); NEUTROPHILS # (AUTO) 5.4 (2.1-6.9); NEUTROPHILS % 66.1 % (38.7-80.0); PLATELET COUNT 97 x10e3/uL (140-360); RED BLOOD COUNT 3.13 x10e6/uL (3.6-5.1); RED CELL DISTRIBUTION WIDTH 16.6 % (11.7-14.4)
--- NOTE | 2018-06-18 07:00 | NUR ---
LATE ENTRY--DR. Danny SPAIN DID RETURN THE CALL AND INFORMED OF PATIENT REQUEST NOT TO DO THE PROCEDURE. NO FURTHER ORDERS.
--- NOTE | 2018-06-18 07:40 | NUR ---
RECEIVED PATIENT ASLEEP IN BED AT THIS TIME, NO SIGNS OF DISTRESS. CALL LIGHT IN REACH WILL CONTINUE TO MONITOR.
[2018-06-18] MEDS ORDERED: MULTIVITAMINS- 12 INJECTION 10 ML, FOLIC ACID MDV 5 MG, THIAMINE HCL INJ 100 MG in SODI... IV SCH (08:00)
[2018-06-18 08:18] VITALS: BP 106/59
[2018-06-18] MEDS ORDERED: PROPRANOLOL HCL 40 MG TAB PO SCH (09:00)
[2018-06-18 09:14] LABS: INR 1.8; PROTHROMBIN TIME 21.5 seconds (11.9-14.5)
[2018-06-18 09:15] LABS: PARTIAL THROMBOPLASTIN TIME 44.3 seconds (23.8-35.5)
[2018-06-18] MEDS: PANTOPRAZOLE 40 MG 10ML VIAL IV SCH (09:22)
[2018-06-18] MEDS: SUCRALFATE 1 GM TAB PO SCH ×2 (09:22→12:12)
[2018-06-18] MEDS: SPIRONOLACTONE 25 MG TAB PO SCH (09:22)
[2018-06-18] MEDS: GABAPENTIN 100 MG CAP PO SCH ×2 (09:22→12:00)
[2018-06-18] MEDS: OYST-CAL-D 500MG TABLET PO SCH (09:22)
[2018-06-18] MEDS: OCTREOTIDE ACETATE 500 MCG in SODIUM CHLORIDE 0.9% 250ML 249 ML IV SCH ×3 (09:58)
[2018-06-18] MEDS ORDERED: FERROUS SULFAT325 MG PO (10:02)
[2018-06-18] MEDS ORDERED: GABAPENTIN100 MG PO ×2 (10:02)
[2018-06-18] MEDS ORDERED: OSCAL D PO (10:02)
[2018-06-18] MEDS ORDERED: PROPRANOLOL HCL40 MG PO (10:02)
[2018-06-18] MEDS ORDERED: PANTOPRAZOLE SO40 MG PO (10:02)
[2018-06-18] MEDS ORDERED: MIRTAZAPINE15 MG PO (10:02)
[2018-06-18] MEDS ORDERED: ASCORBIC ACID500 MG PO (10:02)
[2018-06-18] MEDS ORDERED: ATIVAN0.5 MG PO (10:02)
[2018-06-18] MEDS: HYDROCODONE/APAP 5MG-325MG TAB PO PRN (10:05)
[2018-06-18] MEDS ORDERED: MAGNESIUM SULF 1GRAM/DEXTROSE 100 ML IV ONE (10:30)
[2018-06-18] MEDS ORDERED: POTASSIUM CHLORIDE 20 MEQ TAB CR PO NR (10:30)
[2018-06-18] MEDS ORDERED: SODIUM CHLORIDE 0.9% 500ML 500 ML ONE (10:54)
[2018-06-18] MEDS: FUROSEMIDE 20 MG TAB PO SCH (11:01)
[2018-06-18 11:28] VITALS: BP 106/59
[2018-06-18 12:04] VITALS: BP 79/53
[2018-06-18 12:26] LABS: BASOPHILS # (AUTO) 0.1 (0.0-0.1); BASOPHILS % 0.7 % (0.0-1.0); EOSINOPHILS # (AUTO) 0.1 (0.0-0.4); EOSINOPHILS % 1.1 % (0.0-6.0); HEMATOCRIT 30.5 % (34.2-44.1); HEMOGLOBIN 9.4 g/dL (12.0-16.0); LYMPHOCYTES # (AUTO) 1.4 (1.0-3.2); LYMPHOCYTES % 15.6 % (18.0-39.1); MEAN CORPUSCULAR HEMOGLOBIN 29.1 pg (28-32); MEAN CORPUSCULAR HGB CONC 30.8 g/dL (31-35); MEAN CORPUSCULAR VOLUME 94.4 fL (81-99); MONOCYTES # (AUTO) 1.2 (0.2-0.8); NEUTROPHILS # (AUTO) 6.2 (2.1-6.9); NEUTROPHILS % 68.8 % (38.7-80.0); PLATELET COUNT 97 x10e3/uL (140-360); RED BLOOD COUNT 3.23 x10e6/uL (3.6-5.1); RED CELL DISTRIBUTION WIDTH 16.9 % (11.7-14.4)
--- NOTE | 2018-06-18 14:35 | NUR ---
REMOVED PATIENTS IV'S. CATHETER TIP INTACT AND PRESSURE DRESSING APPLIED.
--- NOTE | 2018-06-18 14:45 | NUR ---
PATIENT DISCHARGED FROM FACILITY. PATIENT GATHERED ALL PERSONAL BELONGINGS, DISCHARGE INSTRUCTIONS, AND FOLLOW UP INFORMATION. PATIENT LEFT UNIT IN WHEELCHAIR AND WENT HOME VIA PRIVATE AUTO. NO SIGNS OF DISTRESS WHEN LEAVING FACILITY.
--- NOTE | 2018-06-19 07:37 | Discharge Summary ---
ADMISSION DIAGNOSES: Acute blood loss anemia secondary to gastrointestinal bleed, thrombocytopenia, coagulopathy secondary to cirrhosis, cirrhosis, gastroesophageal reflux disease, ETOH use with history of cirrhosis, hypomagnesemia, and coagulopathy. DISCHARGE DIAGNOSES: Acute blood loss anemia secondary to gastrointestinal bleed, thrombocytopenia, coagulopathy secondary to cirrhosis, cirrhosis, gastroesophageal reflux disease, ETOH use with history of cirrhosis, hypomagnesemia, coagulopathy. Rule out urinary tract infection, esophageal varices, small hiatal hernia, diffuse portal hypertensive gastropathy. HISTORY: The patient has a history of cirrhosis, GERD, and neuropathy. SURGICAL HISTORY: Appendectomy, cholecystectomy, hysterectomy, and tonsillectomy. FAMILY HISTORY: The patient's uncle and cousin have diabetes. The patient's dad, uncle, and grandma have cancer. SOCIAL HISTORY: The patient admits to occasional alcohol use and 1 pack of cigarettes a day for 25 years. HOSPITAL COURSE: A 47-year-old female complains of intermittent dark brown stools for the last 1-2 weeks. She complains of about 25-pound weight loss since January due to poor appetite. She also complains of 2-3 weeks of generalized weakness. She admits to drinking 2 mini bottles of wine last week and says that was her last alcohol. On admission, her ETOH was 134.8, hemoglobin was 5.7, and platelets were 112. Chest x-ray showed enlarged cardiac silhouette, pulmonary vascular congestion, trace right pleural effusion. Ultrasound of the abdomen showed mild amount of ascites. The patient refused a paracentesis. The patient received a total of 4 PRBCs and 5 FFPs during hospitalization. Alcohol cessation was discussed with the patient and strongly encouraged. On 06/17, the patient had an EGD that showed grade 1-2 esophageal varices without active bleeding or stigmata of recent hemorrhage. Small hiatal hernia. Cardiac varices without active bleeding. Diffuse portal hypertensive gastropathy. Per GI recommendation, patient was started on propranolol b.i.d. Her diet was advanced as tolerated. Hemoglobin has been stable for 2 or 3 days now. The patient is tolerating diet and is ready to go home. She will follow up with primary care in 1-[address] Barclay next week. Vital signs stable, patient afebrile. The patient understands discharge instructions and agrees to plan. Dictated by Sravanthi Kauffman NP MD SANTIAGO Carter/[place] /[id number]
== END 2018-06-18 14:46 | disposition home or self-care (01) | DRG 369 ==
LOC: ER 13:50 → ERHOLD 17:38 → ICU 06-16 13:58 → MED/SURG 06-18 02:10
PROVIDERS: ADMIT Internal Medicine; ATTEND Internal Medicine
PROC: 30233K1 Transfusion of Nonautologous Frozen Plasma into Peripheral Vein, Percutaneous Approach (ICD-10-PCS; 2018-06-15)
PROC: 30233N1 Transfusion of Nonautologous Red Blood Cells into Peripheral Vein, Percutaneous Approach (ICD-10-PCS; 2018-06-15)
PROC: 0DJ08ZZ Inspection of Upper Intestinal Tract, Via Natural or Artificial Opening Endoscopic (ICD-10-PCS; principal; 2018-06-17 14:30)
DX: I85.00 Esophageal varices without bleeding (principal); D62 Acute posthemorrhagic anemia; K76.6 Portal hypertension; D68.4 Acquired coagulation factor deficiency; K70.31 Alcoholic cirrhosis of liver with ascites; E87.6 Hypokalemia; E83.42 Hypomagnesemia; K21.9 Gastro-esophageal reflux disease without esophagitis; G62.9 Polyneuropathy, unspecified; Z90.49 Acquired absence of other specified parts of digestive tract; Z87.891 Personal history of nicotine dependence; Z82.49 Family history of ischemic heart disease and other diseases of the circulatory system; D69.6 Thrombocytopenia, unspecified; F10.10 Alcohol abuse, uncomplicated; F41.9 Anxiety disorder, unspecified; F43.23 Adjustment disorder with mixed anxiety and depressed mood; K44.9 Diaphragmatic hernia without obstruction or gangrene; K31.89 Other diseases of stomach and duodenum; Z83.3 Family history of diabetes mellitus; Z80.9 Family history of malignant neoplasm, unspecified
CPT/HCPCS: 36415; 43239; 71045; 76705; 80048; 80053; 80076; 80307; 80320; 80329; 81001; 81025; 82105; 82140; 83735; 83880; 85025; 85610; 85730; 86850; 86900; 86920; 87086; 93005; 99285; J1940; J2001; J2250; J2353; J2405; J3411; J3430; J3475; J3480; J7030; J7040; J7050; P9016; P9017

== ENCOUNTER 2018-07-31 10:53 | Emergency (ER) | payer MEDICARE ==
[~2018-07-31] VITALS: Ht 154.9 cm; Wt 57.2 kg
[~2018-07-31 10:53] MED LIST changes: +ASCORBIC ACID500 MG PO; +ATIVAN0.5 MG PO; +FERROUS SULFAT325 MG PO; +GABAPENTIN100 MG PO; +MIRTAZAPINE15 MG PO; +OSCAL D PO; +PANTOPRAZOLE SO40 MG PO; +PROPRANOLOL HCL40 MG PO
--- OUTSIDE RECORDS SUMMARY | 2018-07-31 10:55 | XMS REPORT | Clinical Summary ---
Author Author [facility] Address Unknown Phone Unavailable Care Team Providers Care Object Oriented Developer Name Role Phone Elie Pang DO PCP [...] (Primary Dx) 10/03/2017 Transcribe Access Orders after 07/30/2017 Family History Medical History Relation Name Comments [...] Due Date Last Done Comments INFLUENZA VACCINE 09/24/2018 Procedures Comments Procedure Name Priority Date/Time Associated Diagnosis US ABDOMEN COMPLETE STAT 10/03/2017 Acid phosphatase elevated 5:57 PM CDT after 07/30/2017 Results * US Abdomen Complete (10/03/2017 5:57 PM CDT) Specimen Narrative Performed At EXAM: ultrasound abdomen [facility] CLINICAL DATA:R74.8 Abnormal levels of other serum [...] IMPRESSION: Portal vein is incompletely visualized. Hepatomegaly. [id number] Procedure Note Interface, Radiology Results Incoming - [...] IMPRESSION: Portal vein is incompletely visualized. Hepatomegaly. [id number] Performing Organization Address City/State/Zipcode Phone Number [facility] [address] [place] [address] after 07/30/2017 Insurance Type Payer Benefit Subscriber ID Effective Phone Address Plan / Dates Group PPO BCBS BCBS xxxxxxxxxxxx 2017-P CHOICE resent PPO/MATT [employer]PER PPO Advance Directives Patient has advance care planning documents on file. For more information, ivon blake contact: Pawel Irby [address] [place] [address]
--- OUTSIDE RECORDS SUMMARY | 2018-07-31 10:56 | XMS REPORT | Clinical Summary ---
Author Author [facility] Address Unknown Phone Unavailable Care Team Providers Care Grouter Helper Name Role Phone Elie Pang PCP Unavailable Allergies No Known Allergies Medications End Date Status Medication Sig Dispensed Refills Start Date Active aspirin 81 MG EC tablet Take 81 mg by 0 mouth. Active albuterol HFA (PROAIR 0 HFA) 90 mcg/actuation 8 inhaler Active spironolactone Take 50 mg by 0 (ALDACTONE) 50 MG tablet mouth daily. 11/20/2018 Active folic acid (FOLVITE) 1 MG Take 1 tablet 30 tablet 5 tablet (1 mg total) 8 by mouth daily. Active DECARA 50,000 unit TAKE 1 12 capsule 0 capsule CAPSULE BY 8 MOUTH EVERY WEEK Active lactulose (CHRONULAC) 10 Take 15 mLs 900 mL 11 gram/15 mL (15 mL) (10 g total) 9 solution by mouth 2 (two) times daily. Active furosemide (LASIX) 20 MG Take 1 tablet 20 tablet 0 tablet (20 mg total) 9 by mouth daily. Active pantoprazole (PROTONIX) Take 1 tablet 30 tablet 11 40 MG tablet (40 mg total) 9 by mouth daily. 07/30/2019 Active naltrexone (DEPADE) 50 mg Take 1 tablet 30 tablet 2 tablet (50 mg total) 9 by mouth daily. 07/30/2019 Active propranolol (INDERAL) 20 Take 1 tablet 30 tablet 5 MG tablet (20 mg total) 9 by mouth daily. Active gabapentin (NEURONTIN) TK 1 C PO BID 0 100 MG capsule AND 2 CS PO 9 QHS Active mirtazapine (REMERON) 15 Take 15 mg by 0 MG tablet mouth nightly. 07/30/2018 Discontinued lansoprazole (PREVACID) Take 30 mg by 0 30 MG capsule mouth. 07/30/2018 Discontinued rifAXIMin 550 mg Tab Take 550 mg 0 by mouth 2 (two) times daily. 07/30/2018 Discontinued furosemide (LASIX) 20 MG Take 20 mg by 0 tablet mouth daily. 10/23/2017 Discontinued baclofen 5 mg Take 5 mg by 90 tablet 0 TabIndications: Alcohol mouth 3 8 use disorder (three) times daily. 07/30/2018 Discontinued baclofen 5 mg Take 5 mg by 90 tablet 0 TabIndications: Alcohol mouth 3 8 use disorder (three) times daily. 12/24/2017 Discontinued cholecalciferol, vitamin Take 1 tablet 12 tablet 0 D3, 50,000 unit Tab (50,000 Units 8 total) by mouth once a week. Active Problems Problem Noted Date Vitamin D deficiency 07/30/2018 Vitamin A deficiency 07/30/2018 Hepatic encephalopathy 07/30/2018 Cirrhosis 10/22/2017 Last Assessment & Plan: Diagnosis [...] hepatotoxicity is very rare. Expert panel of tool checker and stone gluer recommend use of statins in patient with [...] Encounters Care Team Description Date Type Specialty Cristobal Boyle MD Hall, Sophia Marie, NP Alcoholic cirrhosis of liver without ascites (HCC) (Primary Dx); Immunity status testing; Screening for malignant neoplasm; Alcohol use; Portal hypertension (HCC); Hyperlipidemia, unspecified hyperlipidemia type; Vitamin D deficiency; Vitamin A deficiency; Hepatic encephalopathy (HCC) 07/30/2018 Office Visit Hepatology Ella Hunter RN other\\ 07/30/2018 Telephone Hepatology Essence Whitney NP 07/30/2018 Documentation Hepatology Essence Whitney NP 07/30/2018 Orders Only Hepatology 07/29/2018 Travel Essence Whitney NP 12/24/2017 Refill Hepatology Gilmer Morfin NP elevated WBC 11/21/2017 Telephone Hepatology Essence Whitney NP 11/20/2017 Orders Only Hepatology Essence Whitney NP 11/20/2017 Orders Only Hepatology Essence hWitney NP Alcoholic cirrhosis of liver without ascites (HCC); Alcohol use 11/14/2017 Orders Only Hepatology Essence Whitney NP Alcoholic cirrhosis of liver without ascites [...] MA rec cd 10/20/2017 Telephone Hepatology after 07/30/2017 Family History Medical History Relation [...] Vital Signs Time Taken Vital Sign Reading 07/30/2018 11:31 AM CDT Blood Pressure 94/60 07/30/2018 11:31 AM CDT Pulse 88 07/30/2018 11:31 AM CDT Temperature 37.2 C (99 F) 07/30/2018 11:31 AM CDT Respiratory Rate 18 07/30/2018 11:31 AM CDT Oxygen Saturation 98% - Inhaled Oxygen - Concentration 07/30/2018 11:31 AM CDT Weight 57.2 kg (126 lb 1.6 oz) 07/30/2018 11:31 AM CDT Height 156 cm (5' 1.4") 07/30/2018 11:31 AM CDT Body Mass Index 23.52 Plan of Treatment Care Team Description Date Type Specialty Resource, [facility] 11/03/2018 Office Visit Hepatology Procedures Comments Procedure Name Priority Date/Time Associated Diagnosis CBC W/PLT COUNT & AUTO Routine 07/30/2018 Alcoholic cirrhosis of DIFFERENTIAL 1:16 PM CDT liver without ascites (HCC) VITAMIN D, 25-HYDROXY Routine 07/30/2018 Alcoholic cirrhosis of 1:16 PM CDT liver without ascites (HCC) ALPHA FETOPROTEIN (AFP), Routine 07/30/2018 Screening for malignant TUMOR MARKER 1:16 PM CDT neoplasm PROTHROMBIN TIME/INR Routine 07/30/2018 Alcoholic cirrhosis of 1:16 PM CDT liver without ascites (HCC) CBC W/PLT COUNT & AUTO Routine 07/30/2018 Alcoholic cirrhosis of DIFFERENTIAL 1:16 PM CDT liver without ascites (HCC) HEPATIC FUNCTION PANEL Routine 07/30/2018 Alcoholic cirrhosis of 1:16 PM CDT liver without ascites (HCC) BASIC METABOLIC PANEL (7) Routine 07/30/2018 Alcoholic cirrhosis of 1:16 PM CDT liver without ascites (HCC) VITAMIN B1 (THIAMINE), Routine 11/17/2017 Alcohol use [...] of liver 11:54 AM CDT (HCC) after 07/30/2017 Results * CBC with platelet count + automated diff (07/30/2018 1:16 PM CDT) Only the most recent of 2 results within the time period is included. WBC 7.6 3.5 - 10.5 K/L [facility] RBC 2.55 (L) 3.93 - 5.22 M/L [facility] Hemoglobin 8.5 (L) 11.2 - 15.7 GM/DL [facility] Hematocrit 26.0 (L) 34.1 - 44.9 % [facility] MCV 102.0 (H) 79.4 - 94.8 fL [facility] MCH 33.3 (H) 25.6 - 32.2 pg [facility] MCHC 32.7 32.2 - 35.5 GM/DL [facility] RDW 22.5 (H) 11.7 - 14.4 % [facility] Platelets 140 (L) 150 - 450 K/CU MM [facility] MPV 10.3 9.4 - 12.3 fL [facility] nRBC 0 0 - 0 /100 WBC [facility] % Neutros 68 % [facility] % Lymphs 22 % [facility] % Monos 8 % [facility] % Eos 1 % [facility] % Baso 1 % [facility] # Neutros 5.14 1.56 - 6.13 K/L [facility] # Lymphs 1.65 1.18 - 3.74 K/L [facility] # Monos 0.59 (H) 0.24 - 0.36 K/L [facility] # Eos 0.08 0.04 - 0.36 K/L [facility] # Baso 0.06 0.01 - 0.08 K/L [facility] Immature 1 0 - 1 % [facility] Granulocytes-[facility] Specimen Blood Performing Organization Address City/State/Zipcode Phone Number [facility] [address] [place] [address] [facility] * Alpha fetoprotein (AFP), tumor marker (07/30/2018 1:16 PM CDT) Only the most recent of 2 results within the time period is included. [place]-Fetoprotein 6.4 <10.0 ng/mL [facility] Specimen Blood Performing Organization Address City/[facility] Phone Number [address] [address] [facility] * Vitamin D, 25-Hydroxy (07/30/2018 1:16 PM CDT) Only the most recent of 2 results within the time period is included. Vitamin D 25-Hydroxy 45.6 6.6 - 49.9 ng/mL [facility] Specimen Blood Narrative Performed At Effective 12/04/2016: Reference Range Change [facility] New: 6.6-49.9 ng/mL Previous: 13.0-47.8 ng/mL [facility] Recommended Vitamin D Target Range: 30.0-40.0 ng/mL Performing Organization Address [facility] [place] [address] [facility] * Pro-time/INR (07/30/2018 1:16 PM CDT) Only the most recent of 3 results within the time period is included. Protime 20.5 (H) 11.9 - 14.2 seconds [facility] INR 1.9 <=5.9 [facility] Specimen Blood Narrative Performed At Effective 07/22/2018: PT Reference Range Change [facility] New: 11.9-14.2Previous: 11.7-14.7 [facility] RECOMMENDED COUMADIN/WARFARIN INR THERAPY RANGES STANDARD DOSE: 2.0-3.0Includes: PROPHYLAXIS for venous thrombosis, systemic embolization; TREATMENT for venous thrombosis and/or pulmonary embolus. HIGH RISK: Target INR is 2.5-3.5 for patients wiht mechanical heart valves. Performing Organization Address City/[facility] Phone Number [address] [address] [facility] * Hepatic function panel (07/30/2018 1:16 PM CDT) Only the most recent of 3 results within the time period is included. Protein, Total 7.6 6.0 - 8.3 gm/dL [facility] Albumin 3.0 (L) 3.5 - 5.0 g/dL [facility] Total Bilirubin 2.8 (H) 0.2 - 1.2 mg/dL [facility] Bilirubin, Direct 1.9 (H) 0.1 - 0.5 mg/dL [facility] Alkaline Phosphatase 203 (H) 40 - 150 U/L [facility] AST 106 (H) 5 - 34 U/L [facility] ALT 11 6 - 55 U/L [facility] Specimen Blood Narrative Performed At Specimen slightly icteric [facility] Performing Organization Address City/State/Zipcode Phone Number [facility] [address] [place] [address] MED[facility]ENTER * Basic Metabolic Panel (07/30/2018 1:16 PM CDT) Only the most recent of 3 results within the time period is included. Sodium 137 136 - 145 meq/L [facility] Potassium 2.8 (L) 3.5 - 5.1 meq/L [facility] Chloride 101 98 - 107 meq/L [facility] CO2 25 22 - 29 meq/L [facility] BUN 5 (L) 7 - 21 mg/dL [facility] Creatinine 0.68 0.57 - 1.25 mg/dL [facility] Glucose 91 70 - 105 mg/dL [facility] Calcium 8.2 (L) 8.4 - 10.2 mg/dL [facility] EGFR 92Comment: ESTIMATED GFR IS mL/min/1.[address] [facility] NOT ACCURATE CREATININE [facility] CLEARANCE IN PREDICTING GLOMERULAR FILTRATION RATE. ESTIMATED GFR IS NOT APPLICABLE FOR DIALYSIS PATIENTS. Specimen Blood Narrative Performed At Specimen slightly icteric [facility] Performing Organization Address [facility]/Zipcode Phone Number [facility] [address] [place] [address] [facility] * Vitamin B1 (Thiamine), Whole Blood, LC/MS/MS (11/17/2017 3:28 PM CDT) Vitamin B1,LCMSMS 58 (L) 78 - 185 nmol/L [facility] Comment: Vitamin supplementation within 24 hours prior to blood draw may affect the accuracy of results. This test was developed and its analytical performance characteristics have been determined by [employer] [facility]. It has not been cleared or approved by FDA. This assay has been validated pursuant to the CLIA regulations and is used for clinical purposes. Specimen Resulting Agency Comment Performing Organization Information: Site ID: [id number] Name: [facility] Address: [address] [place] [phone] Director: Baldemar Bardales M.D., Ph.D Performing Organization Address [facility] Phone Number [facility] [address] [place] [address] [facility] * Vitamin B12 and Folate (11/17/2017 3:28 PM CDT) Vitamin B12 402 200 - 1,100 pg/mL [facility] Folate (Folic Acid), 3.8 (L) ng/mL [facility] Serum Comment: Reference Range Low: <3.4 Borderline:3.4-5.4 Normal:>5.4 Specimen Blood Resulting Agency Comment Performing Organization Information: Site ID: [id number] Name: [facility] Address: [address] [place] [phone] Director: Simona Mccauley Performing Organization Address [facility] Phone Number [facility] [address] [place] [address] [facility] * Zinc (11/17/2017 3:28 PM CDT) Zinc 84 60 - 130 mcg/dL [facility] Comment: This test was developed and its analytical performance characteristics have been determined by [employer] [facility]. It has not been cleared or approved by the US Food and Drug Administration. This assay has been validated pursuant to the CLIA regulations and is used for clinical purposes. Specimen Blood Resulting Agency Comment Performing Organization Information: Site ID: [facility] Name: [facility] Address: [address] [place] [address] Director: Baldemar Bardales M.D., Ph.D Performing Organization Address [facility] Phone Number [facility] [address] [place] [address] [facility] * Vitamin A (11/17/2017 3:28 PM CDT) Vitamin A 20 (L) 38 - 98 mcg/dL [facility] Comment: Clin Chem Vol. 34.No.8. [id number]. 1998 Vitamin supplementation within 24 hours prior to blood draw may affect the accuracy of results. This test was developed and its analytical performance characteristics have been determined by [facility]. It has not been cleared or approved by the US Food and Drug Administration. This assay has been validated pursuant to the CLIA regulations and is used for clinical purposes. Specimen Blood Resulting Agency Comment Performing Organization Information: Site ID: [facility] Name: [facility] Address: [address] [place] [address] Director: Baldemar Bardales M.D., Ph.D Performing Organization Address [facility] Phone Number [facility] [address] [place] [address] [facility] * CBC with platelet count + [...] Performing Organization Information: Site ID: [id number] Name: [facility] Address: [address] [place] [phone] Director: Simona Mccauley Performing Organization Address [facility] Phone Number [facility] [address] [place] [address] [facility] * Vitamin E (11/17/2017 3:28 PM CDT) Alpha-Tocopherol 13.4 5.7 - 19.9 mg/L [facility] Comment: Pediatric Term Infants (Cord Blood) 1.8 - 5.8 mg/L Levels of alpha-tocopherol < 5 mg/L are consistent with Vitamin E deficiency in adults [facility]-Yhzkn-Dlnsytofsi 2.5 <4.4 mg/L [facility] Comment: Vitamin supplementation within 24 hours prior to blood draw may affect the accuracy of results. This test was developed and its analytical performance characteristics have been determined by [facility]. It has not been cleared or approved by the US Food and Drug Administration. This assay has been validated persuant to the CLIA regulations and is used for clinical purposes. Specimen Blood Resulting Agency Comment Performing Organization Information: Site ID: [id number] Name: [facility] Address: [address] [place] [address] Director: Baldemar Bardales M.D., Ph.D Performing Organization Address [facility] Phone Number [facility] [address] [place] [address] [facility] * Phosphorus (11/17/2017 3:28 PM CDT) Phosphorus, Serum 3.4 2.5 - 4.5 mg/dL [facility] Specimen Blood Resulting Agency Comment Performing Organization Information: Site ID: [id number] Name: [facility] Address: [address] [place] [phone] Director: Simona Mccauley Performing Organization Address [facility] Phone Number [facility] [address] [place] [address] [facility] * Magnesium (11/17/2017 3:28 PM CDT) Magnesium, Serum 1.3 (L) 1.5 - 2.5 mg/dL [facility] Specimen Blood Resulting Agency Comment Performing Organization Information: Site ID: [id number] Name: [facility] Address: [address] [place] [phone] Director: Simona Mccauley Performing Organization Address [facility] Phone Number [facility] [address] [place] [address] [facility] * Ethanol (11/17/2017 3:28 PM CDT) Alcohol Metabolites POSITIVE (A) <500 ng/mL [facility] Comment: => Indicates changed result(s) or information. Ethyl Glucuronide (ETG) >26968 (H) <500 ng/mL [facility] Comment: => Indicates changed result(s) or information. Ethyl Sulfate (ETS) >80723 (H) <100 ng/mL [facility] Comment: => Indicates changed result(s) or information. Comment Comment: [facility] This drug testing is for medical treatment only. Analysis was performed as non-forensic testing and these results should be used only by healthcare providers to render diagnosis or treatment, or to monitor progress of medical conditions. For assistance with interpreting these drug results, please contact a [facility]: [phone] ( ), M-F, 8am-6pm EST. Specimen Blood Resulting Agency Comment Performing Organization Information: Site ID: Name: [facility] Address: [address] [place] [phone] Director: Dr. Asim Loyd Performing Organization Address [facility] Phone Number [facility] [address] [place] [address] [facility] * Hepatitis A Antibody, IgG (HS Only) (10/22/2017 11:54 AM CDT) Hep A IgG Nonreactive Nonreactive [facility] Specimen Blood Performing Organization Address [facility] Phone Number [facility] [address] [place] [id number] [place] [address] * Hepatitis B core antibody, total (10/22/2017 11:54 AM CDT) Hep B Core Total Ab NON-REACTIVE Nonreactive [facility] Specimen Blood Performing Organization Address [facility] Phone Number [address] * Hepatitis B surface antibody (10/22/2017 11:54 AM CDT) Hep B S Ab <8.0 <8.0 mIU/mL [facility] Specimen Blood Performing Organization Address [facility] Phone Number [phone] [place] [address] after 07/30/2017 Insurance Payer Benefit Subscriber ID Type Phone Address Plan / Group MEDICAID MEDICAID xxxxxxxxx [place]
[2018-07-31 11:38] LABS: ANION GAP 14.9 mmol/L (8-16); BLOOD UREA NITROGEN < 5 mg/dL (7-26); CALCIUM 8.4 mg/dL (8.4-10.2); CARBON DIOXIDE 24 mmol/L (22-29); CHLORIDE 100 mmol/L (98-107); CREATININE, SERUM 0.62 mg/dL (0.57-1.11); EST GLOMERULAR FILTRATION RATE > 60 ML/MIN (60-); GLUCOSE 80 mg/dL (74-118); SODIUM 136 mmol/L (136-145)
[2018-07-31 11:41] LABS: BUN/CREATININE RATIO 8 (6-25)
[2018-07-31 11:42] LABS: POTASSIUM 2.9 mmol/L (3.5-5.1)
[2018-07-31] MEDS ORDERED: PROPRANOLOL HCL10 MG PO (11:45)
[2018-07-31] MEDS ORDERED: PANTOPRAZOLE SO40 MG PO (11:45)
[2018-07-31] MEDS ORDERED: XIFAXAN550 MG PO (11:45)
[2018-07-31] MEDS ORDERED: NALTREXONE HCL50 MG PO (11:45)
[2018-07-31] MEDS ORDERED: LANSOPRAZOLE30 MG PO (11:45)
[2018-07-31] MEDS ORDERED: SPIRONOLACTONE25 MG PO (11:45)
[2018-07-31] MEDS ORDERED: LACTULOSE20 GM/30 M PO (11:45)
[2018-07-31] MEDS ORDERED: BACLOFEN10 MG PO (11:45)
[2018-07-31] MEDS ORDERED: PROAIR HFA INH8.5 GM INH (11:45)
[2018-07-31] MEDS ORDERED: DECARA25000 UNIT PO (11:45)
[2018-07-31] MEDS ORDERED: POTASSIUM CHLORIDE 20 MEQ TAB CR PO STA ×2 (12:10)
[2018-07-31] MEDS ORDERED: POTASSIUM CHLORIDE 10MEQ EA PO ONE ×2 (12:15→13:15)
[2018-07-31] MEDS ORDERED: POTASSIUM CHLORIDE 20MEQ/100ML 100 ML IV ONE (12:15)
--- NOTE | 2018-07-31 12:45 | NUR ---
PT C/O BURNING TO IV SITE. SITE IS C/D/I. POTASSIUM INFUSION SLOWED TO 40 ML/HR. DR. ROBIN VALDEZ.
--- NOTE | 2018-07-31 13:00 | NUR ---
PT RESTING IN BED, BREATHING EVEN/UNLABORED, EYES CLOSED, NAD NOTED, V/S/S. CALL LIGHT IN REACH, ICE CHIPS AT BEDSIDE, NO NEEDS VOICED AT THIS TIME, WILL CONTINUE TO MONITOR.
[2018-07-31] MEDS ORDERED: SODIUM CHLORIDE 0.9% 250ML 250 ML ONE (14:28)
[2018-07-31] MEDS ORDERED: SODIUM CHLORIDE 0.9% 250ML 250 ML IV ONE (14:30)
[2018-07-31 14:44] VITALS: BP 109/96
== END 2018-07-31 14:52 | disposition home or self-care (01) ==
LOC: ER 10:53
DX: E87.6 Hypokalemia (principal); K52.9 Noninfective gastroenteritis and colitis, unspecified
CPT/HCPCS: 36415; 80048; 93005; 99284; J3480; J7050